=== PATIENT | female | born 1965 | race Caucasian/White ===

== ENCOUNTER 2021-10-07 07:21 | Outpatient (REF) | payer OTHER, SELFPAY ==
--- NOTE | ~2021-10-07 | MM_ITS ---
EXAMINATION: MM SCREENING DIGITAL BREAST TOMOSYNTHESIS, BILATERAL CLINICAL INFORMATION: Screening. Asymptomatic. The lifetime risk of breast cancer based on the Tyrer-Cuzick Model is 5%. COMPARISON: Mammography: 06/26/2018, 02/01/2017, 06/25/2014 TECHNIQUE: Digital breast tomosynthesis is performed in both the craniocaudal and mediolateral oblique views along with computer-aided detection (CAD). Synthesized 2D images are generated from the tomosynthesis. FINDINGS: There are scattered areas of fibroglandular density (ACR BI-RADS breast composition Category b). There are no significant masses, abnormal calcifications, or other abnormalities. Parenchymal pattern is similar to prior studies. There is no developing density or architectural abnormality. The axilla and skin contours are unremarkable. No significant changes. MM/MM tomosynthesis screening BI IMPRESSION: No mammographic evidence of malignancy. ASSESSMENT: BI-RADS 1: Negative RECOMMENDATION: Routine annual mammography screening. This patient's information was entered into a reminder system with a target due date for their next mammogram.
== END 2021-10-07 07:22 | disposition home or self-care (01) ==
LOC: HO.MAMMO 07:21
PROVIDERS: Visit Provider Internal Medicine
DX: Z12.31 Encounter for screening mammogram for malignant neoplasm of breast (principal)
CPT/HCPCS: 77063; 77067

== ENCOUNTER 2022-10-12 07:20 | Outpatient (REF) | payer OTHER, SELFPAY ==
--- NOTE | ~2022-10-12 | MM_ITS ---
EXAMINATION: MM SCREENING DIGITAL BREAST TOMOSYNTHESIS, BILATERAL CLINICAL INFORMATION: Screening. Asymptomatic. The lifetime risk of breast cancer based on the Tyrer-Cuzick Model is 2%. COMPARISON: Mammography: 10/07/2021, 06/26/2018, 02/01/2018 TECHNIQUE: Digital breast tomosynthesis is performed in both the craniocaudal and mediolateral oblique views along with computer-aided detection (CAD). Synthesized 2D images are generated from the tomosynthesis. FINDINGS: There are scattered areas of fibroglandular density (ACR BI-RADS breast composition Category b). There are no significant masses, abnormal calcifications, or other abnormalities. No architectural abnormality or developing density or significant change from prior studies. The axilla are unremarkable. MM/MM tomosynthesis screening BI IMPRESSION: No mammographic evidence of malignancy. ASSESSMENT: BI-RADS 1: Negative RECOMMENDATION: Routine annual mammography screening. This patient's information was entered into a reminder system with a target due date for their next mammogram.
== END 2022-10-12 07:21 | disposition home or self-care (01) ==
LOC: HO.MAMMO 07:20
PROVIDERS: PCP Internal Medicine; Visit Provider Internal Medicine
DX: Z12.31 Encounter for screening mammogram for malignant neoplasm of breast (principal)
CPT/HCPCS: 77063; 77067

== ENCOUNTER 2023-10-12 10:59 | Outpatient (REF) | payer OTHER, SELFPAY ==
[2023-10-12 14:47] LABS: Cholesterol 275 mg/dL (<200); HDL Cholesterol 82 mg/dL (>40); LDL Cholesterol Calculated 178 mg/dL (<100); Triglycerides 77 mg/dL (<150)
[2023-10-12 15:00] LABS: Estimated Average Glucose 105 mg/dL; Hemoglobin A1c % 5.3 % (<6.0)
[2023-10-12 15:05] LABS: TSH reflex Free T4 1.26 uIU/mL (0.32-4.0)
== END 2023-10-12 11:00 | disposition home or self-care (01) ==
LOC: HO.CHCLDS 10:59
PROVIDERS: Visit Provider Internal Medicine
DX: R00.2 Palpitations (principal); R73.9 Hyperglycemia, unspecified; I10 Essential (primary) hypertension
CPT/HCPCS: 36415; 80061; 83036; 84443

== ENCOUNTER 2023-10-19 07:07 | Outpatient (REF) | payer OTHER, SELFPAY | END 2023-10-19 07:08 | disposition home or self-care (01) | LOC: HO.MAMMO 07:07 | PROVIDERS: PCP Internal Medicine; Visit Provider Internal Medicine | DX: Z12.31 Encounter for screening mammogram for malignant neoplasm of breast (principal) | CPT/HCPCS: 77063; 77067 ==

== ENCOUNTER → 2023-10-19 07:30 | Outpatient (BNV) | payer OTHER, SELFPAY | PROVIDERS: PCP Internal Medicine; Visit Provider Radiology Diagnostic Radiology | DX: Z12.31 Encounter for screening mammogram for malignant neoplasm of breast (principal) | CPT/HCPCS: 77063; 77067 ==

== ENCOUNTER 2024-06-28 12:14 | Outpatient (REF) | payer OTHER, SELFPAY ==
--- NOTE | ~2024-06-28 | XR_ITS ---
EXAMINATION: XR CHEST CLINICAL INFORMATION: Cough x 2 weeks. COMPARISON: None available. TECHNIQUE: 2 views of the chest were obtained. FINDINGS: No significant abnormality is noted involving the heart, lungs, mediastinum, bony thorax or soft tissues. XR/XR chest 2V IMPRESSION: Unremarkable examination. Electronically signed by: Vick Johnson MD 06/30/2024 08:40 PM [facility]
== END 2024-06-28 12:15 | disposition home or self-care (01) ==
LOC: HO.XRAY 12:14
PROVIDERS: PCP Internal Medicine; Visit Provider Internal Medicine
DX: R05.1 Acute cough (principal)
CPT/HCPCS: 71046

== ENCOUNTER 2024-07-16 18:04 | Outpatient (REF) | payer OTHER, SELFPAY ==
[2024-07-17 09:39] LABS: Adenovirus PCR Not Detected (Not Detect.); Bordetella parapertussis PCR Not Detected (Not Detect.); Bordetella pertussis PCR Not Detected (Not Detect.); Chlamydia pneumoniae PCR Not Detected (Not Detect.); Coronavirus 229E PCR Not Detected (Not Detect.); Coronavirus HKU1 PCR Not Detected (Not Detect.); Coronavirus NL63 PCR Not Detected (Not Detect.); Coronavirus OC43 PCR Detected (Not Detect.); Human metapneumovirus PCR Not Detected (Not Detect.); Influenza A PCR Not Detected (Not Detect.); Influenza B PCR Not Detected (Not Detect.); Mycoplasma pneumoniae PCR Not Detected (Not Detect.); Parainfluenza 1 PCR Not Detected (Not Detect.); Parainfluenza 2 PCR Not Detected (Not Detect.); Parainfluenza 3 PCR Not Detected (Not Detect.); Parainfluenza 4 PCR Not Detected (Not Detect.); RSV PCR Not Detected (Not Detect.); Rhino/Enterovirus PCR Not Detected (Not Detect.)
[2024-07-17 09:48] LABS: SARS-CoV-2 PCR Not Detected (Not Detect.)
== END 2024-07-16 18:05 | disposition home or self-care (01) ==
LOC: HO.HHCLNP 18:04
PROVIDERS: Visit Provider Internal Medicine
DX: J01.40 Acute pansinusitis, unspecified (principal)
CPT/HCPCS: 87633

== ENCOUNTER 2024-07-25 12:25 | Outpatient (REF) | payer OTHER, SELFPAY ==
--- NOTE | ~2024-07-25 | XR_ITS ---
CLINICAL HISTORY: Nasal congestion w facial pain x 5 weeks getting worse. 4 view sinuses Comparison: None Findings: Bones are intact. Paranasal sinuses and mastoids are clear. No radiopaque foreign body. IMPRESSION: 1. No acute findings This document has been electronically signed by: Cliff Granado MD on 07/27/2024 08:28:58
== END 2024-07-25 12:26 | disposition home or self-care (01) ==
LOC: HO.XRAY 12:25
PROVIDERS: PCP Internal Medicine; Visit Provider Internal Medicine
DX: J01.40 Acute pansinusitis, unspecified (principal)
CPT/HCPCS: 70220

== ENCOUNTER → 2024-07-25 12:30 | Outpatient (BNV) | payer OTHER, SELFPAY | PROVIDERS: PCP Internal Medicine; Visit Provider Specialist | DX: G50.1 Atypical facial pain (principal); R09.81 Nasal congestion | CPT/HCPCS: 70220 ==

== ENCOUNTER 2024-10-15 10:02 | Outpatient (REF) | payer OTHER, SELFPAY ==
--- OUTSIDE RECORDS SUMMARY | 2024-10-15 11:42 | XMS_ITS | Clinical Summary ---
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 Name Role Phone Unavailable Primary Care Provider Unavailabl e Surgical History Surgery Date Site/Laterality Comments HYSTERECTOMY PROCEDURE: HISTORICAL HYSTERECTOMY Medical History Medical History Date Comments Pure hypercholesterolemia 12/21/2006 DX:Pur e hypercholesterolemia Unspecified asthma(493.90) 12/29/2006 DX:Un specified asthma(493.90) Family History Relation Name Status Comments Aunt [place] Father Alive CVA Mother Alive High cholestero l Sister Alive Uncle 1 [place] Uncle 2 [place] Uncle 3 [place] Social History Tobacco Use Types Packs/Day Years Used Date Smoking Tobacco: Former Alcohol Use Standard Drinks/Week Comments Yes 0 (1 standard drink = 0.6 oz pur e alcohol) Comments Unknown Sex and Gender Information Value Date Recorded Sex Assigned at Not on file Legal Sex Female 12:36 AM EST Gender Identity Not on file Sexual Orientation Not on file Obstetrics History Plan of Treatment Health Maintenance Due Date Last Done Comments Breast Cancer Screening 1965 DTaP,Tdap,and Td Vaccines (1 - Tdap) 1984 Hepatitis B Vaccines (1 of 3 - 19+ 3-dose series) 1984 Cervical Cancer Screening: P ap Smear 1986 Pneumococcal Vaccine: 50+ Years (1 of 1 - PCV) 2015 Zoster Vaccines (1 of 2) 2015 Colorectal Cancer Screening: Colonoscopy 06/13/2022 Depression Screening 06/13/2022 HIV Screening 06/13/2022 Hepatitis C Screening 06/13/2022 Social Influencers of Health Screening 06/13/2022 COVID-19 Vaccine (2023-2 5 season) 2024 Influenza Vaccine (Season Ended) 2025 05/31/2019, 04/21/2018 RSV Immunization Adult Patients (1 - 1-dose 75+ series) 2040 HIB Vaccines Aged Out No longer eligi ble based on patient's age to complete this topic HPV Vaccines Aged Out No longer eligi ble based on patient's age to complete this topic Hepatitis A Vaccines Aged Out No long er eligible based on patient's age to complete this topic IPV Vaccines Aged Out No longer eligi ble based on patient's age to complete this topic MMR Vaccines Aged Out No longer eligi ble based on patient's age to complete this topic Meningococcal ACWY Vaccine Aged Out N o longer eligible based on patient's age to complete this topic Meningococcal B Vacine Aged Out No lo nger eligible based on patient's age to complete this topic Pneumococcal Vaccine: Pediatrics (0 to 5 Years) and At-Risk Patients (6 to 64 Years) Aged Out No longer eligible b ased on patient's age to complete this topic RSV Immunization Patients Under 20 months Aged Out No longer eligible b ased on patient's age to complete this topic Varicella Vaccines Aged Out No longer eligible based on patient's age to complete this topic
--- OUTSIDE RECORDS SUMMARY | 2024-10-15 11:42 | XMS_ITS | Data Portability ---
Author Organization [place] - [facility], Allergy Address [address] [address] Care Team Providers Care Warehouse Picker Name Role Phone INDU ROPER Referring Provider Assessment Encounter Date Assessment Date Assessment LastModified by Organization Details LastModified Time 08/10/2024 08/10/2024 I reviewed her MRI showing clear sinuses. She did not try the gabapentin. She would like to know exactly what is causing her symptoms before taking medication. She is not convinced symptoms are related to a migraine variant. For the tinnitus, we did perform audiometric testing which shows a slightly asymmetric hearing loss. Given the asymmetry and the tinnitus, we can proceed with further investigation with MRI. I also recommended updated allergy testing. [email or web address] Not available 08/14/2024 08:32:15 Plan of Treatment Reminders Order Date Submit Date Provider Last Modified By Organization Details Last Modified Time Details Appointments None recorded. Lab None recorded. Referral None recorded. Procedures allergy testing, skin prick (PROC) 2024 025 [email or web address] Not available 14:35:30 intradermal allergy skin testing (PROC) 2024 025 [email or web address] Not available 14:35:30 pulmonary function test procedure (PROC) 2024 025 [email or web address] Not available 14:35:30 pulse oximetry (PROC) 2024 025 [email or web address] Not available 14:35:30 Surgeries None recorded. Imaging MRI, brain + internal auditory canal, w/wo contrast - MRI, BRAIN + INTERNAL AUDITORY CANAL, W/WO CONTRAST 2024 025 [facility] ([facility]), [address], [place], [address], 13:51:40 CT, sinuses, w/o contrast 2024 025 [place] [facility], [address] , [facility] [address], [address], 22:36:09 Medication Orders ofloxacin 0.3 % ear drops 2024 025 [id number], [address] [place], [address], 10:14:11 gabapentin 300 mg capsule 2024 025 [facility][id number], [address] [place], [address], 10:16:39 Patient TargetsNo targets recorded. Patient InstructionsNo instructions recorded. Reason for Referral None Reported. Results Created Date Observation Date Name Description Value Unit Range Abnormal Flag Note LastModifiedBy Organization Detail LastModifiedTime 08/04/1908/02/2024 CT, sinus es, w/o contr ast No observ ation record ed. [email or web address] [facility] [address], [address], 08/08/2024 12:48:39 08/04/1908/02/2024 CT, sinus es, w/o contr ast No observ ation record ed. [place] [facility] [address], [address], 08/08/2024 12:47:16 08/16/1908/15/2024 MRI, brain + brain stem, w/[facility] : [id number] Name: Elida Guzman Record Number : [id number] Date of : 1965 Date of Exam: 2024 Referr ing Physic paris: [facility] [address], [facility] [address] [place] [address] Exam: MR Brain (C-/C+ ) CPT 09704 Room Descri ption: Carolina Siem Verio 3.0T INDICA TION: Left ear tinnit us TECHNI QUE: Multip lanar multis equenc e MRI of the brain using an IAC protoc ol was perfor med before and after the admini strati on of 10 mL of Dotare m. COMPAR GINI: No prior FINDIN GS: The bilate ral internal grinder tender al audito ry canals are normal in size. The bilate ral crania l nerves VII and VIII comple xes are symmet gail. There is normal T2 signal in the bilate ral cochle a and semici rcular canals . The cister nal segmen ts of the bilate ral trigem inal nerves are normal . Bilate ral Meckel caves are normal . The cerebe llopon michele angle cister ns are patent . There is no eviden ce of mass or abnorm al enhanc ement in the bilate ral internal grinder tender al audito ry canals . The visual ized brain is unrema rkable . The visual ized ventri cles and sulci normal . The midlin e the struct ures, main vascul ar flow voids, and basal cister ns are normal . There is fluid in inferi or left mastoi d air cells. IMPRES CIERRA: Unrema rkable bilate ral internal grinder tender al audito ry canals . Small left mastoi d effusi on. Electr onical ly Signed By: Nicolasa Phan MD [facility] ([facility]) [address], [place], [address], 08/20/2024 12:58:05 08/20/19 25 audio gram No observ ation record ed. BARCODE Not Available 2024 15:37:28 Result Notes None recorded. Problems Name Problem SNOMED Code Status Onset Date Resolution Date Notes Provider Name and Address Organization Details Recorded Time Atypical facial pain 27580171 Active 2024 CESAR MISHRA MD [address], [place], [address], [facility] - [facility] [place] 5 14:05:05 Sensorineur al hearing loss of bilateral ears 422888239 Active 2024 CR FLORESETHEL SEVILLA [address], [place], [address], [place] - [facility] [place] 5 10:49:21 Tinnitus of left ear 6795985994310 Active 2024 CESAR MISHRA MD 100 [facility],[address], [place], [address], [place] - [facility] [place] 5 11:16:45 Chronic rhinitis 07161009 Active 2024 CESAR MISHRA MD 100 [facility],[address], [place], [address], [facility] - [facility] [place] 5 11:17:09 Non-allergi c rhinitis 909080200318 Active 2024 CESAR MISHRA MD 100 [facility],[address], [place], [address], [facility] - [facility] [place] 5 11:17:20 Allergic rhinitis 53790043 Active 2024 CESAR MISHRA MD 100 [facility],[address], [place], [address], [facility] - [facility] [place] 11:17:20 Seasonal allergic rhinitis 565813468 Active 2024 CESAR MISHRA MD 100 [facility],[address], [place], [address], [place] - [facility] [place] 5 11:17:20 Disorder of left Eustachian tube 2995816262859 109 Active 2024 CESAR MISHRA MD [address] [facility],[address], [place], [address], [place] [facility] [place] 16:05:15 Problem Notes None recorded. Procedures Surgical History Date Name Laterality Status Provider Name and Address Organization Details Recorded Time 08/30/19 25 Myringotomy with Aspiration left completed CESAR MISHRA MD [address], [address], [facility] - [facility] 09/02/2024 17:24:11 08/10/19 25 Comp Audio with Tymps (19416 & 44529) completed ETHEL MURRAY 100 [facility],[address], [address], [facility] - [facility] 08/10/2024 10:48:45 07/27/19 25 JMSNasal/Sinus Endoscopy completed CESAR MISHRA MD [address] [place] [address], [address], [facility] - [facility] 07/27/2024 14:04:54 hysterectomy completed CESAR MISHRA MD [address] [place] [address], [address], [facility] - [facility] 07/27/2024 13:31:56 Imaging Results Imaging Date Name Status LastModified by Organiz ation Details LastModified Time 08/02/2024 CT, sinuses, w/o contrast completed [facility] [address], [address], 08/08/2024 12:48:39 08/02/2024 CT, sinuses, w/o contrast completed [place] [facility] [address], [address], 08/08/2024 12:47:16 08/15/2024 MRI, brain + brain stem, w/wo contrast completed [facility] ([facility]) [address] [place], [address], 08/20/2024 12:58:05 08/20/2024 audiogram completed [facility] Information no t available 08/20/2024 15:37:28 Procedure Notes None recorded. Medical Equipment None Reported. Allergies Allergen ID Allergen Name Allergen Category Reaction Reaction Severity Criticality Documentation Date Start Date Code Code System Note Provider Name and Address Organization Details Recorded Time 475436 azithromy segun medicatio n Not available Not available Not available 07/27/2024 97049 RxNorm Jenny Potvin null, [place] - [facility] [place] 13:23:14 275637 amitripty line medicatio n Not available Not available Not available 07/27/2024 704 RxNorm Jenny Potvin null, [place] - [facility] [place] 5 13:23:23 029439 clindamyc in Not available Not available Not available Not available 07/27/2024 2582 RxNorm Jenny Potvin null, [place] - [facility] [place] 13:23:39 966059 prednison e medicatio n Not available Not available Not available 07/27/2024 8640 RxNorm Jenny Potvin null, [place] [facility] [place] 5 13:23:49 561545 rofecoxib medicatio n Not available Not available Not available 07/27/2024 84210 8 RxNorm Jenny Potvin null, [place] [facility] [place] 5 13:24:01 090705 Medicinal product containin g macrolide and acting as antibacte rial agent (product) medicatio n Not available Not available Not available 07/27/2024 33742 8007 SNOMED Jenny Potvin null, [place] - [facility] [place] 5 13:24:13 937659 erythromy segun medicatio n Not available Not available Not available 07/27/2024 4053 RxNorm Jenny Potvin null, [place] - [facility] [place] 5 13:24:35 713074 nortripty line medicatio n Not available Not available Not available 07/27/2024 7531 RxNorm Jenny Potvin null, [place] - [facility] [place] 5 13:24:44 340820 hydralazi ne medicatio n Not available Not available Not available 07/27/2024 5470 RxNorm Jenny Potvin null, [place] - [facility] [place] 5 13:24:53 099391 hydrochlo rothiazid e medicatio n Not available Not available Not available 07/27/2024 5487 RxNorm Jenny watkins [place] - [facility] 5 13:25:10 121004 fluconazo le medicatio n Not available Not available Not available 07/27/2024 4450 RxNorm Jenny watkins [place] - [facility] 5 13:25:22 Medications Name Sig Start Date Stop Date Status Note LastModified by Organization Details LastModified Time cetirizine 10 mg tablet TAKE ONE TABLET DAILY active Not Available Not Available No t Available acetaminoph en 120 mg-codeine 12 mg/5 mL oral solution TAKE 15 ML BY MOUTH EVERY 4 HOURS NEEDED FOR SEVERE PAIN FOR UP TO 5 DAYS 07/27 completed Not Available Not Available Not Available ciprofloxac in 500 mg tablet TAKE ONE TABLET TWICE DAILY FOR 7 DAYS 07/27 completed Not Available Not Available Not Available sulfamethox azole 800 mg-trimetho prim 160 mg tablet TAKE 1 TABLET BY MOUTH TWICE DAILY 07/27 completed Not Available Not Available Not Available amoxicillin 500 mg tablet TAKE 2 TABLETS BY MOUTH NOW THEN TAKE 1 TABLET EVERY 8 HOURS UNTIL ALL TAKEN 07/27 completed Not Available Not Available Not Available ofloxacin 0.3 % ear drops INSTILL 5 DROPS TWICE A DAY BY OTIC ROUTE FOR 3 DAYS. 09/28 completed Not Available Not Available Not Available Banophen 25 mg tablet TAKE ONE TABLET EVERY NIGHT AT BEDTIME NEEDED FOR ITCHING 07/27 completed Not Available Not Available Not Available dexamethaso ne 4 mg tablet TAKE ONE TABLET ONCE DAILY FOR 3 DAYS 07/27 completed Not Available Not Available Not Available gabapentin 300 mg capsule TAKE 1 CAPSULE BY MOUTH EVERY DAY FOR 30 DAYS 08/10 completed Not Available Not Available Not Available azelastine 137 mcg (0.1 %) nasal spray USE ONE SPRAY IN EACH NOSTRIL TWICE DAILY 07/27 completed Not Available Not Available Not Available albuterol sulfate HFA 90 mcg/actuati on aerosol inhaler INHALE TWO PUFFS EVERY 4 HOURS NEEDED FOR WHEEZING active Not Available Not Available No t Available fluticasone propionate 50 mcg/actuati on nasal spray,suspe nsion INHALE 1 SPRAY IN EACH NOSTRIL ONCE DAILY active Not Available Not Available No t Available amoxicillin 875 mg-potassiu m clavulanate 125 mg tablet TAKE 1 TABLET BY MOUTH EVERY 12 HOURS 07/27 completed Not Available Not Available Not Available amoxicillin 500 mg-potassiu m clavulanate 125 mg tablet TAKE 1 TABLET 3 TIMES A DAY FOR 7 DAYS TILL FINISHED 07/27 completed Not Available Not Available Not Available tobramycin 0.3 %-dexametha sone 0.1 % eye drops,suspe nsion APPLY 3 DROPS TO LEFT EAR TWICE A DAY FOR 5 DAYS 09/28 completed Not Available Not Available Not Available nitrofurant oin monohydrate /macrocryst als 100 mg capsule TAKE 1 CAPSULE BY MOUTH EVERY 12 HOURS FOR 5 DAYS 07/27 completed Not Available Not Available Not Available hydrochloro thiazide 12.5 mg tablet TAKE ONE TABLET EVERY MORNING 07/27 completed Not Available Not Available Not Available Asmanex HFA 100 mcg/actuati on aerosol inhaler INHALE ONE PUFF TWICE DAILY, RINSE MOUTH AFTER USE 07/27 completed Not Available Not Available Not Available Vitals Date Recorded Body height Body mass index (BMI) Body weight Provider Name and Address Organization Details Last Updated DateTime 09/28/2024 154.94 cm 26.6 kg/m2 13899.52 g Jenny Carter [place] - [facility] 09/28/2024 10:14:01 Date Recorded Body height Body mass index (BMI) Body weight Provider Name and Address Organization Details Last Updated DateTime 07/27/2024 154.94 cm 26.5 kg/m2 55557.93 g Jenny Carter [place] - [facility] 07/27/2024 13:20:28 Date Recorded Body height Body mass index (BMI) Body weight Provider Name and Address Organization Details Last Updated DateTime 08/10/2024 154.94 cm 26.3 kg/m2 48866.34 g Jenny Carter [place] - [facility] 08/10/2024 10:16:23 Date Recorded Body height Body mass index (BMI) Body weight Provider Name and Address Organization Details Last Updated DateTime 08/30/2024 154.94 cm 26.6 kg/m2 58746.52 g Jenny Carter [place] - [facility] [place] [facility] 08/30/2024 15:50:20 Social History Question Answer Notes LastModified by Organizat ion Details LastModified Time Tobacco Smoking Status Former Smoker CESAR MISHRA MD [address] [place] [address], [address], [place] - [facility] [place] 07/27/2024 13:31:44 When Did You Quit Smoking? 16+yearssinc elastcigaret te [email or web address] Information not available 07/27/2024 Sex: Unknown Functional Status None recorded. Mental Status None recorded. Family History Nothing Reported Notes:Vertigo Mother - Onset Age: 56, of Age: 70 Hearing loss Mother - Onset Age: 5, of Age: 70 Medical History Condition Response Headaches Y Asthma Y Gynecological HistoryNo gynecological history recorded. Obstetrics History GPAL:G 0 P 0 0 0 0 Past Encounters Encounter ID Performer Location Encounter Start Date Encounter Closed Date Diagnosis/Indication Diagnosis SNOMED-CT Code Diagnosis ICD10 Code Diagnosis Note [id number] CESAR MISHRA MD [facility] [address] [address] 07/27/2024 13:16:55 07/27/2024 14:09:51 Atypical facial pain 66989202 G50.1 No evidence of bacterial infection on exam today. Had sinus XR which was normal. I discussed that a CT is a more definitive test. She was not able to have test in the office today, so we have scheduled it in the near future. She has been seen in the past for similar symptoms with normal imaging, we discussed allergies and migraines in the differenti al. She is quite uncomforta ble but has multiple medication limitation s, but agrees to try gabapentin again. [id number] CESAR MISHRA MD [facility] [address] [address] 08/10/2024 10:10:09 08/10/2024 13:04:08 Sensorineural hearing loss of bilateral ears 545122601 H90.3 Audiologic al evaluation results: Right ear: {{Normal N ormal through 2 kHz Mild M oderate Mo derately-s evere Sayra re Profoun d Essentia lly normal hearing#}} {{hearing sloping to a mild slopi ng to a moderate s loping to moderately severe slo ping to severe slo ping to profound f lat high frequency low frequency mid frequency cookie bite samuel curve with the exception of a moderately -severe SNHL at 8000Hz#}} {{with* se nsorineura l hearing loss with condu ctive hearing loss with mixed hearing loss with}} {{excellen t* good fa ir poor no measurable }} word recognitio n. Left ear: {{Normal N ormal through 2 kHz Mild M oderate Mo derately-s evere Sayra re Profoun d Essentia lly normal#}} {{hearing sloping to a mild slopi ng to a moderate s loping to moderately severe* sl oping to severe slo ping to profound f lat high frequency low frequency mid frequency cookie bite samuel curve}} {{with sen sorineural hearing loss with* cond uctive hearing loss with mixed hearing loss with}} {{excellen t* good fa ir poor no measurable }} word recognitio n. Tympanomet ry: Right Ear:{{Type A Type As Type Ad* Type C Type C, shallow & rounded Ty pe B Type B with large volume Cou ld not maintain a hermetic seal}} Left Ear:{{Type A* Type As Type Ad Type C Type C, shallow & rounded Ty pe B Type B with large volume Cou ld not maintain a hermetic seal}} Tinnitus of left ear 924 9892982 106 H93.12 Chronic rhinitis 0440341 6 J31.0 [id number] CESAR MISHRA MD [facility] [address] [address] 08/30/2024 15:44:37 08/30/2024 16:11:56 Disorder of left Eustachian tube 5725540303 043851 H69.92 59-year-ol d female with left-sided head pressure and sinus congestion which has not been explained with sinus infection. Her MRI did not show any concerning lesion but did show evidence of partial mastoid effusion which could be a contributi ng factor to her symptoms. She is motivated to proceed with myringotom y. I counseled her that I did not know if this would help with her symptoms, but if it does, we can proceed with tube placement. [id number] CESAR MISHRA MD [facility] 100 [place] [address] 09/28/2024 09:50:16 09/28/2024 10:28:10 Disorder of left Eustachian tube 7786470848 706852 H69.92 Symptoms are markedly improved after myringotom y and drops with steroids. She feels about 80% better. There is a small crust over the myringotom y site. Given improvemen t, will defer tube placement. We discussed we could proceed with tube placement and longer-ter m dose of steroid drops if symptoms worsen. Health Concerns Section Related Observation LastModified by Organization Detai ls LastModified Time None Recorded Concern Status LastModified by Organization Details LastModified Time None Recorded Advance Directives Directive None Recorded Payers Encounter Date Sequence Insurance Name Policy Number Policy Ross Covered Member ID Ross Member ID Guarantor Name 07/27/2024 1 [facility] [id number] Kenna Guzman [id number] Kenna Guzman 08/10/2024 1 [facility] [id number] Kenna Guzman [id number] 1 Kenna Guzman 08/30/2024 1 [facility] [id number] Kenna Guzman [id number] 1 Kenna Guzman 09/28/2024 1 [facility] [id number] Kenna Guzman [id number] 1 Kenna Guzman Notes Date Note Type Note Provider Name and Address Organization Details Recorded Time 5 text/html 59 yo F with acute sinus symptoms. started itching in the earheadachestinnitus on the left Had XR at [place] which looked normal left extending to ear cough betterno meds now a couple abx but did not help augmentin and then a second with steroidoriginally infected tooth, now a new root canal mandibular usually 3-4 sinus infections per year here 10 years ago (Kenna Nielsen chart [id number]) CT negativeBeer and mold positive for allergy testing , has been on flonase prednisone allergynortriptyline allergygabapentin did not seem to help in past has been on sudafed and mucinex CESAR MISHRA MD [address] [place] [address],[address], [address], [facility] - [facility] 08/08/2024 12:44:27 5 text/html No improvement in symptoms. She is very distressed by her symptoms. PV: 59 yo F with acute sinus symptoms. started itching in the earheadachestinnitus on the left Had XR at [place] which looked normal left extending to ear cough betterno meds now a couple abx but did not help augmentin and then a second with steroidoriginally infected tooth, now a new root canal mandibular usually 3-4 sinus infections per year here 10 years ago (Kenna Nielsen chart [id number]) CT negativeBeer and mold positive for allergy testing , has been on flonase prednisone allergynortriptyline allergygabapentin did not seem to help in past has been on sudafed and mucinex CESAR MISHRA MD 100 [facility],[address], [address], [facility] - [facility] 08/14/2024 08:32:26 5 text/html 59-year-old female presents today for follow-up. Her MRI did not show any concerning findings, but did show some fluid in a few of the left sided air cells. CESAR MISHRA MD [address] [facility] [address], [place], [address], [facility] - [facility] 09/02/2024 17:25:28 5 text/html Dizziness is gone, pressure 80% better.Second drops made a difference in the ear almost immediately. CESAR MISHRA MD [address] [facility],[address], [address], [facility] - [facility] 09/28/2024 10:29:29 OBGyn Episode No OBEpisode recorded.
--- OUTSIDE RECORDS SUMMARY | 2024-10-15 11:43 | XMS_ITS | Encounter Summary ---
Author Organization [employer] Address [address] [place] [address] Care Team Providers Care Ell Tutor Name Role Phone Fela Grajeda MD Primary Care Provider [phone] Reason for Visit * Reason Comments Med Refill Encounter Details Date Type Department Care Team ([facility] Contact Info) Description 01/09/2024 Refill [facility] [address] [place] [address] Fela Grajeda MD [address] [place] [address] Seasonal allergies Social History Tobacco Use Types Packs/Day Years Used Date Smoking Tobacco: Former Cigarettes Smokeless Tobacco: Never Alcohol Use Standard Drinks/Week Comments Yes 0 (1 standard drink = 0.6 oz pur e alcohol) Alcohol Answer Date Recorded Frequency of Alcohol Consumption Not on file 10/07/2022 How many drinks containing a lcohol do you have on a typical day when you are drinking? 1 10/07/2022 How often do you have six or more drinks on one occasion? 1 10/07/2022 Depression Answer Date Recorded Patient Health Questionnaire-9 Score 3 10/12/2023 Patient Health Questionnaire-9 Score 3 10/12/2023 Last PHQ-9: Questionnaire Data Not on file 0 10/12/2023 Housing Stability Answer Date Recorded What is your housing situation today? I have barbara melendez 05/01/[address] you li ve. Do you have problems with any of the following? None of the above 05/01/2023 Food Insecurity Answer Date Recorded Within the past 12 months, y ou worried that your food would run out before you got money to buy more: Never True 05/01/2023 Within the past 12 months,th e food you bought just didn't last and you didn't have enough money to get more: Never True Transportation Answer Date Recorded In the past 12 months, has l ack of transportation kept you from medical appts, meetings, work or from getting things needed for daily living? No 05/01/2023 Utilities Answer Date Recorded In the past 12 months, has t he electric, gas, oil or water company threatened to shut off services in your home? No 05/01/2023 Depression Answer Date Recorded Patient Health Questionnaire-2 Score 0 10/12/2023 Comments Unknown Sex and Gender Information Value Date Recorded Sex Assigned at Female 05/10/2022 10:21 AM EDT Legal Sex Female 10:21 AM EDT Gender Identity Female 05/10/2022 10:21 AM EDT Sexual Orientation Straight 05/10/2022 10 :21 AM EDT documented as of this encounter Plan of Treatment Not on file documented as of this encounter Visit Diagnoses Diagnosis Seasonal allergies Allergic rhinitis, cause unspecified documented in this encounter Additional Health Concerns Assessment Noted Time PHQ-9 Depression Total Score: 3 10/12/19 24 9:48 AM EDT documented as of this encounter Care Teams Ell Tutor Relationship Specialty Start Date End Date Fela Grajeda MD [address] [place] [address] PCP - General Internal Medicine 07/11/18 documented as of this encounter
--- OUTSIDE RECORDS SUMMARY | 2024-10-15 11:43 | XMS_ITS | Encounter Summary ---
Author Organization [employer] Address [address] [facility] [address] [place] [address] Care Team Providers Care Benzene Washer Name Role Phone Fela Grajeda MD Primary Care Provider [phone] Encounter Details Date Type Department Care Team (Latest Contact Info) Description 10/15/2024 Travel Social History Tobacco Use Types Packs/Day Years Used Date Smoking Tobacco: Former Cigarettes Smokeless Tobacco: Never Alcohol Use Standard Drinks/Week Comments Yes 0 (1 standard drink = 0.6 oz pur e alcohol) Alcohol Answer Date Recorded Q1: How often do you have a drink containing alc ohol? 3 10/15/2024 Q2: How many drinks containi ng alcohol do you have on a typical day when you are drinking? 4 10/15/2024 Q3: How often do you have six or more drinks on one occasion? 4 10/15/2024 Depression Answer Date Recorded Patient Health Questionnaire-9 Score 7 10/15/2024 Patient Health Questionnaire-9 Score 7 10/15/2024 Last PHQ-9: Questionnaire Data Not on file 0 10/15/2024 Housing Stability Answer Date Recorded What is your housing situation today? I have barbara melendez 10/15/[address] you li ve. Do you have problems with any of the following? Mold 10/15/2024 Food Insecurity Answer Date Recorded Within the past 12 months, y ou worried that your food would run out before you got money to buy more: Never True 10/15/2024 Within the past 12 months,th e food you bought just didn't last and you didn't have enough money to get more: Never True 01/2025 Transportation Answer Date Recorded In the past 12 months, has l ack of transportation kept you from medical appts, meetings, work or from getting things needed for daily living? No 10/15/2024 Utilities Answer Date Recorded In the past 12 months, has t he electric, gas, oil or water company threatened to shut off services in your home? No 10/15/2024 Depression Answer Date Recorded Patient Health Questionnaire-2 Score 0 10/15/2024 Internet Access Answer Date Recorded Internet Access Q1 Yes 10/15/2024 Internet Access Q2 Not on file 10/15/2024 Comments Unknown Sex and Gender Information Value Date Recorded Sex Assigned at Female 05/10/2022 10:21 AM EDT Legal Sex Female 10:21 AM EDT Gender Identity Female 05/10/2022 10:21 AM EDT Sexual Orientation Straight 05/10/2022 10 :21 AM EDT documented as of this encounter Plan of Treatment Not on file documented as of this encounter Visit Diagnoses Not on filedocumented in this encounter Additional Health Concerns Assessment Noted Time PHQ-9 Depression Total Score: 7 10/16/19 25 9:53 AM EDT documented as of this encounter Care Teams Benzene Washer Relationship Specialty Start Date End Date Fela Grajeda MD [address] [place] [id number] PCP - General Internal Medicine 07/11/18 documented as of this encounter
--- OUTSIDE RECORDS SUMMARY | 2024-10-15 11:43 | XMS_ITS | Clinical Summary ---
Author Organization [facility] Address [address] [place] [address] Care Team Providers Care Machine Tool Builder Name Role Phone Unknown, Primary Care Provider Unavailabl e Allergies No known active allergies Medications Medication Sig Dispensed Refills Start Date End Date Status albuterol 108 (90 Base) MCG/ACT inhaler INHALE TWO PUFFS EVERY 4 TO 6 HOURS NEEDED 0 03/19/2021 Active HYDROcodone-acetam inophen (NORCO) 5-325 MG per tablet Take 1 tablet by mouth every 6 (six) hours as needed for pain. 25 tablet 0 09/03/2021 Active ibuprofen 600 MG tablet Take 1 tablet (600 mg total) by mouth 3 (three) times a day. 60 tablet 1 09/03/2021 Active methocarbamol (Robaxin-750) 750 MG tablet Take 1 tablet (750 mg total) by mouth 3 (three) times a day as needed (spasm). 40 tablet 1 09/03/2021 Active predniSONE (DELTASONE) 5 mg tablet Take 4 tablets (20 mg total) by mouth 2 (two) times a day. 60 tablet 1 09/14/2021 Active sulfamethoxazole-t rimethoprim (BACTRIM DS) 800-160 MG per tablet Take 1 tablet (160 mg of trimethoprim total) by mouth 2 (two) times a day. 28 tablet 1 09/07/2023 Active Active Problems Problem Noted Date Diagnosed Date Acute pain of right knee 09/03/2021 Knee effusion, right 09/03/2021 Acute medial meniscus tear of right knee 022 Acute pain of left wrist 03/23/2021 De Quervain's tenosynovitis, left 03/23/2021 Resolved Problems Problem Noted Date Diagnosed Date Resolved Date Occult closed fracture of sc aphoid of left wrist 03/23/2021 03/23/2021 Social History Tobacco Use Types Packs/Day Years Used Date Smoking Tobacco: Never Smokeless Tobacco: Never Alcohol Use Standard Drinks/Week Comments Yes 0 (1 standard drink = 0.6 oz pur e alcohol) Sex and Gender Information Value Date Recorded Sex Assigned at Not on file Gender Identity Not on file Sexual Orientation Not on file Job Start Date Occupation Industry Not on file Not on file Not on file Last Filed Vital Signs Vital Sign Reading Time Taken Comments Blood Pressure - - Pulse - - Temperature 36.4 ??C (97.5 ??F) 09/03/2021 2:58 PM ES T Respiratory Rate - - Oxygen Saturation - - Inhaled Oxygen Concentration - - Weight 70.8 kg (156 lb) 09/03/2021 2:58 PM EST Height 154.9 cm (5' 1 ) 09/03/2021 2:58 PM EST Body Mass Index 29.48 09/03/2021 2:58 PM EST Plan of Treatment Health Maintenance Due Date Last Done Comments Hepatitis B Vaccines (1 of 3 - 3-dose series) 1965 Hepatitis C Screening 1965 COVID-19 Vaccine (#1) 01/20/1966 Depression Screening 1977 BMI Counseling 1983 Preventative Health Evaluation 1983 DTap / Tdap / Td (1 - Tdap) 1984 Cervical Cancer Screening (P ap Smear) 1986 Colon Cancer Screening (Colonoscopy) 2010 Breast Cancer Screening (Mammogram) 2015 Shingrix-Zoster Vaccine (1 of 2) 2015 Influenza Vaccine (#1) 2024 Pneumococcal Vaccine Aged Out No long er eligible based on patient's age to complete this topic RSV Ped < 20 months Aged Out No longe r eligible based on patient's age to complete this topic Care Teams Machine Tool Builder Relationship Specialty Start Date End Date Unknown, PCP - General 09/09/21
--- OUTSIDE RECORDS SUMMARY | 2024-10-15 11:43 | XMS_ITS | Clinical Summary ---
Author Organization [employer] Address [address] [place] [address] 7 [place] [address] Care Team Providers Care Regulatory Compliance Officer Name Role Phone Fela Grajeda MD Primary Care Provider [phone] Allergies Active Allergy Reactions Criticality Noted Date Comments Amitriptyline Palpitations Low 01/17/2012 Azithromycin Rash Low Clindamycin Hives 07/07/2022 Erythromycin Hives 07/07/2022 Fluconazole Shortness of breath High 04/27/2016 Hydralazine Swelling 11/14/2023 Hydrochlorothiazide Hives 11/24/2023 Macrolides And Ketolides Hives 07/07/2022 Nortriptyline Palpitations Low 07/07/2022 Prednisone Anxiety Low 07/31/2013 Rofecoxib Rash Low 07/07/2022 Medications Dextromethorphan- guaiFENesin (Mucinex DM) 30-600 MG tablet sustained-release 12 hour 1 tab po q4hrs 28 tablet 4 Active diphenhydrAMINE (BENADryl) 25 MG tablet Take 1 tablet (25 mg) by mouth if needed at bedtime for itching. 10 tablet 4 Active cetirizine (ZyrTEC) 10 MG tabletIndications :Seasonal allergies Take 1 tablet (10 mg) by mouth Once per day. 30 tablet 11 4 Active Mometasone Furoate (Asmanex HFA) 100 MCG/ACT aerosolIndication s:Seasonal allergies Inhale 100 mcg Once per day. 13 g 11 4 Active albuterol 108 (90 Base) MCG/ACT inhalerIndication s:Seasonal allergies INHALE TWO PUFFS BY MOUTH EVERY 4 HOURS NEEDED FOR WHEEZING 8.5 g 1 4 Active albuterol 108 (90 Base) MCG/ACT inhalerIndication s:Congestion of nasal sinus,Acute cough Inhale 2 puffs every 4 (four) hours if needed for wheezing. 18 g 4 06/28/20 25 Active fluticasone (Flonase) 50 MCG/ACT nasal spray Administer 1 spray into each nostril Once per day. 16 g 2 5 Active dexAMETHasone (Decadron) 4 MG tablet Take 1 tablet (4 mg) by mouth Once per day for 3 days. 3 tablet 5 Active azelastine (Astelin) 0.1 % nasal sprayIndications: Subacute pansinusitis Administer 1 spray into each nostril 2 times daily. Use in each nostril as directed 30 mL 12 5 07/25/19 26 Active metoprolol succinate XL (Toprol XL) 25 MG 24 hr tabletIndications :Primary hypertension Take 1 tablet (25 mg) by mouth Once per day. Do not crush or chew. 30 tablet 11 5 10/16/19 26 Active Hospital, Clinic, or Other Facility Administered Medication Ordered Dose Route Frequency Start Date End Date Status ondansetron (Zofran) tablet 8 mgIndications:Flu-lik e symptoms 8 mg PO 2 times daily PRN 07/07/2022 Active Active Problems Problem Noted Date Diagnosed Date Hypercholesterolemia 10/15/2024 Subacute pansinusitis 07/16/2024 Assessment & Plan (07/16/2024 11:50 AM EST): Rx Cipro x 7d + Dexamethasone for at least 3d, warned re GI intolerance and ?anxiety (she had it on PRD). Patient previously tolerated dexa back on 11/2023. Advised to take meds after meals and can take TUMS prn abdominal pain. She will hold dexamethasone if abd pain is not improved with TUMS. Rest (sleep at least 8 hours a night). She'll be out of work today (she works from home) Hydrate with plenty of water (avoid caffeine and alcohol). Use saline nose drops to loosen mucus or vapor showers. Take Acetaminophen (Tylenol??)/Ibuprofen as needed to reduce fever, headache, body aches or discomfort Gargle with salt water and use throat sprays/lozenges for throat pain. [facility] sent out respiratory panel Hives 11/14/2023 Assessment & Plan (11/14/2023 2:36 PM EDT): Advised to continue Benadryl and administer at night. Begin Zyrtec in the morning. Prescribing low dose of Decadron to take if she feels comfortable to aid in relieving allergic reactions. Advised to temporarily discontinue BP medication as a precaution while eliminating allergy. Relevant Medication Cetirizine ( Zyrtec) 10 MG Tablet Dexamethasone ( Decadron) 4 MG Tablet Diphenhydramine (Benadryl) 25 MG Tablet Acute medial meniscus tear of right knee 022 De Quervain's tenosynovitis, left 03/23/2021 Allergic rhinitis 11/24/2011 Insomnia 11/24/2011 Encounters Date Type Department Care Team Description 10/15/2024 9:30 AM EDT Office Visit [facility] [address] [place], [place] [phone] Fela Grajeda MD Annual physical exam (Primary Dx); Subacute pansinusitis; Primary hypertension; Palpitations; Hypercholesterolemia 10/15/2024 Travel 07/25/2024 11:15 AM EST Office Visit [facility] [address] [place], [place] [phone] Fela Grajeda MD Subacute pansinusitis (Primary Dx) 07/25/2024 Telephone [facility] [address] [place] [address] Fela Grajeda MD 07/25/2024 Travel 07/24/2024 Telephone [facility] [address] [place] [address] Fela Grajeda MD Nurse Triage from Last 3 Months Immunizations Name Administration Dates Next Due Influenza injectable quadriv alent IIV4 with preservative 05/31/2019 Influenza injectable quadriv alent preservative free 07/13/2021,04/21/2018,05/06/2017 Influenza, IIV3, injectable 05/22/2014 Influenza, Split (incl. dat fied surface antigen) 04/09/2013 Pfizer Covid-19 Vaccine 12+ 05/27/2021,,10/10/2020 Tdap 01/17/2012 Zoster, Recombinant 09/15/2021,07/13/2021 Family History Medical History Relation Name Comments Hypertension Father Stroke Father Lung cancer Maternal Grandmother Diabetes Mother Heart failure Mother Ovarian cancer Sister Relation Name Status Comments Father Maternal Grandmother Mother Sister Social History Tobacco Use Types Packs/Day Years Used Date Smoking Tobacco: Former Cigarettes Smokeless Tobacco: Never Tobacco Cessation:Counseling Given: Not Answered Alcohol Use Standard Drinks/Week Comments Yes 0 [...] is your housing situation today? I have barbarasanjay melendez 10/15/[address] you [...] Orientation Straight 05/10/2022 10 :21 AM EDT Last Filed Vital Signs Vital Sign Reading Time Taken Comments Blood Pressure 142/92 10/15/2024 9:14 AM EDT Pulse 79 10/15/2024 9:14 AM EDT Temperature 36.6 ??C (97.9 ??F) 10/15/2024 9:14 AM ED T Respiratory Rate 20 10/15/2024 9:14 AM EDT Oxygen Saturation 94% 10/15/2024 9:14 AM EDT Inhaled Oxygen Concentration - - Weight 68 kg (150 lb) 10/15/2024 9:14 AM EDT Height 154.9 cm (5' 1 ) 10/15/2024 9:14 AM EDT Body Mass Index 28.34 10/15/2024 9:14 AM EDT Plan of Treatment Health Maintenance Due Date Last Done Comments CT Colonography 1965 FIT DNA/Cologuard 1965 FIT 1965 FOBT 1965 HIV Screening 1965 Sigmoidoscopy 1965 Hepatitis B Vaccines (1 of 3 - 19+ 3-dose series) 1984 Pap Smear 1986 Cervical Cancer Screening 1995 HPV/Cotest 1995 Pneumococcal Vaccine: 50+ Years (1 of 1 - PCV) 2015 DTaP/Tdap/Td Vaccines (2 - Td or Tdap) 01/16/2022 01/17/2012 Influenza Vaccine (#1) 2024 , 05/31/2019, 04/21/2018, Additional history exists Alcohol/Substance Use Screening 10/15/2025 10/15/2024 COVID-19 Vaccine ( season) 2025 05/27/2021, 11/02/2020, 10/10/2020 Postponed from 03/11/2024 (Patient Refused) Depression Screening 10/15/2025 10/15/2024, 10/16/19 SDOH Screening 10/15/2025 10/15/2024 Tobacco Screening 10/15/2025 10/15/2024 Mammogram 10/18/2025 10/19/2023, 0410/2022, 10/07/2021, Additional history exists Colonoscopy 10/03/2028 Colorectal Cancer Screening 10/03/2028 Lipid Panel 10/11/2028 10/12/2023, 09/10, 07/13/2021 RSV Patients and Patients Aged 60 years or older (1 - 1-dose 75+ series) 2040 Hepatitis C Screening Completed 07/13/2021 Zoster Vaccines Completed 09/15/2021, 07/13/2021 HIB Vaccines Aged Out No longer eligi [...] patient's age to complete this topic Meningococcal Vaccine Aged Out No srinivasa clotidle eligible based on patient's age to complete this topic RSV under 20 months Aged Out No longe r eligible based on patient's age to complete this topic Rotavirus Vaccines Aged Out No longer eligible based on patient's age to complete this topic Procedures Procedure Name Priority Date/Time Associated Diagnosis Comments XR SINUS 3 VIEWS Routine 07/27/2024 8:28 AM EST Subacute pansinusitis BI MAMMOGRAM SCREENING TOMOSYNTHESIS BILATERAL Routine 10/19/2023 7:38 AM EDT LIPID PANEL, STANDARD Routine 10/12/2023 11:03 AM EDT Primary hypertension Elevated blood sugar ZZZ HISTORICAL HEPATITIS C AB W/REFL TO HCV RNA, QN, PCR Routine 07/13/2021 9:22 AM EST from Last 3 Months or Most Recently Relevant to Health Maintenance Results * XR Sinus 3 Views (07/27/2024 8:28 AM EST) Anatomical Region Laterality Modality Radiographic Josefa ging 07/27/2024 8:28 AM EST Narrative 07/27/2024 8:30 AM EST ? [facility] ?[address] ?[place] [address] ?XRay Report ? Signed ? Patient: Kenna Guzman ?MR#: [id number] ?? 36 ? : 1965 ?Acct:[id number] ? Age/Sex: 59 / F ?ADM Date: 07/25/24 ? Loc: HO.XRAY ? Attending Dr: Fela Grajeda MD ? Ordering Physician: Fela Grajeda MD ?? Date of Service: 07/25/24 ?? Procedure(s): XR sinus min 3V ?? Accession Number(s): [id number] ? cc: Fela Grajeda MD ? CLINICAL HISTORY: Nasal congestion w ??facial pain x 5 weeks getting worse. ? 4 view sinuses ? Comparison: None ? Findings: ?? Bones are intact. ?? Paranasal sinuses and mastoids are clear. ?? No radiopaque foreign body. ? IMPRESSION: ?? 1. No acute findings ? This document has been electronically signed by: Cliff Granado MD on ?? 07/27/2024 08:28:58 ? Dictated By: ?Cliff Granado MD ? Signed By: ?<Electronically signed by Cliff Granado MD in OV> ?07/27/24 0830 ? DD/ 0828 ? TD/TT: 07/27/24 0828 ? Sales Assistants And Salespersons: ? Procedure Note Anthony, Image - 07/27/[address] [address] XRay Report Signed Patient: Kenna GuzmanMR#: [id number] 36 : 1965Acct:[id number] Age/Sex: 59 / FADM Date: 07/25/24 Loc: INÉS Attending Dr: Fela Grajeda MD Ordering Physician: Fela Grajeda MD Date of Service: 07/25/24 Procedure(s): XR sinus min 3V Accession Number(s): [id number] cc: Fela Grajeda MD CLINICAL HISTORY: Nasal congestion w facial pain x 5 weeks getting worse. 4 view sinuses Comparison: None Findings: Bones are intact. Paranasal sinuses and mastoids are clear. No radiopaque foreign body. IMPRESSION: 1. No acute findings This document has been electronically signed by: Cliff Granado MD on 07/27/2024 08:28:58 Dictated By: Cliff Granado MD Signed By: <Electronically signed by Cliff Granado MD in OV> 07/27/24829 DD/ 7 TD/TT: 07/27/24827 Sales Assistants And Salespersons: us Fela Grajeda MD IMG XR PROCEDURES Edited Re sult - Final * BI Mammogram Screening Tomosynthesis Bilateral (10/19/2023 7:38 AM EDT) Anatomical Region Laterality Modality Breast Bilateral Mammography 10/19/2023 7:38 AM EDT Narrative 10/24/2023 6:02 AM EDT ? [facility] [place] ? [address] ?[place] [address] ? Mammography Report ? Signed ? Patient: Kenna Guzman ?MR#: [id number] ?? 36 ? : 1965 ?Acct:[id number] ? Age/Sex: 58 / F ?ADM Date: 04/10/24 ? Loc: HO.MAMMO ? Attending : Fela Grajeda MD ? Ordering Physician: Fela Grajeda MD ?Results: 1 ?? Negative ? Date of Service: 10/19/23 ?Follow Up: 1 Year From Orig ?? inal Mammogram ? Procedure(s): MM tomosynthesis screening BI ?? Accession Number(s): [id number] ? cc: Fela Grajeda MD ? EXAMINATION: ?? MM SCREENING DIGITAL BREAST TOMOSYNTHESIS, BILATERAL ? CLINICAL INFORMATION: ? Screening. Asymptomatic. ? COMPARISON: ?? Mammography: This study is compared with prior exams dating back to ?? 2017. ? TECHNIQUE: ?? Digital breast tomosynthesis is performed in both the craniocaudal and ?? mediolateral oblique views along with computer-aided detection (CAD). ?? Synthesized 2D images are generated from the tomosynthesis. ? FINDINGS: ?? There are scattered areas of fibroglandular density (ACR BI-RADS breast ?? composition Category b). ? There are no significant masses, abnormal calcifications, or other ?? abnormalities. ? MM/MM tomosynthesis screening BI ?? IMPRESSION: ?? No mammographic evidence of malignancy. ? ASSESSMENT: ? BI-RADS BI-RADS 1 - Negative ? RECOMMENDATION: ?? Routine annual mammography screening. ? 1 year F/U ? This examination should not preclude the clinical evaluation of a ?? suspicious palpable abnormality. ? This patient's information was entered into a reminder system with a ?? target due date for their next mammogram. ? Dictated By: ?Joyce Francois MD ? Signed By: ?<Electronically signed by Joyce Francois MD in OV> ? 10/24/23557 ? DD/ 0738 ? TD/TT: ? Sales Assistants And Salespersons: ? Procedure Note Anthony, Sara - 10/24/2023 [facility] [address] [place] [address] Mammography Report Signed Patient: Kenna GuzmanMR#: [id number] 36 : 1965Acct:[id number] Age/Sex: 58 / FADM Date: 10/19/23 Loc: HO.MAMMO Attending Dr: Fela Grajeda MD Ordering Physician: Fela Grajeda MDResults: 1 Negative Date of Service: 10/19/23Follow Up: 1 Year From Orig ina Mammogram Procedure(s): MM tomosynthesis screening BI Accession Number(s): [id number] cc: Fela Grajeda MD EXAMINATION: MM SCREENING DIGITAL BREAST TOMOSYNTHESIS, BILATERAL CLINICAL INFORMATION: Screening. Asymptomatic. COMPARISON: Mammography: This study is compared with prior exams dating back to 2018. TECHNIQUE: Digital breast tomosynthesis is performed in both the craniocaudal and mediolateral oblique views along with computer-aided detection (CAD). Synthesized 2D images are generated from the tomosynthesis. FINDINGS: There are scattered areas of fibroglandular density (ACR BI-RADS breast composition Category b). There are no significant masses, abnormal calcifications, or other abnormalities. MM/MM tomosynthesis screening BI IMPRESSION: No mammographic evidence of malignancy. ASSESSMENT: BI-RADS BI-RADS 1 - Negative RECOMMENDATION: Routine annual mammography screening. 1 year F/U This examination should not preclude the clinical evaluation of a suspicious palpable abnormality. This patient's information was entered into a reminder system with a target due date for their next mammogram. Dictated By: Joyce Francois MD Signed By: <Electronically signed by Joyce Francois MD in OV> 10/24/23 0558 DD/ 0738 TD/TT: Sales Assistants And Salespersons: us Fela Grajeda MD IMG BI PROCEDURES Final Res ult * (ABNORMAL) Lipid Panel, Standard (10/12/2023 11:03 AM EDT) Triglycerides 77 <150 mg/dL [facility] Comment:Desirable Triglyceri de: less than 150 mg/dLBorderline High Triglyceride 150-199 mg/dLHigh Triglyceride: 200-499 mg/dLVery High Triglyceride: greater than or equal to 5OO mg/dL Cholesterol 275(H) <200 mg/dL [facility] Comment:Desirable Cholestero l: less than 200 mg/dLBorderline High Cholesterol: 200-239 mg/dLHigh Cholesterol: greater than 239 mg/dL LDL Cholesterol Calculated 178(H) <100 mg/dL [facility] Comment:Desirable LDL: less than 100 mg/dLNear Optimal/Above Optimal LDL: 110- 129 mg/dLBorderline High LDL: 130-159 mg/dLHigh LDL: 160-189 mg/dLVery High LDL: greater than or equal to 190 mg/dL HDL Cholesterol 82 >40 mg/dL [facility] Comment:Desirable HDL: great er than 40 mg/dL Note: This HDL assay may give artificially low results in patients with liver disease. Blood Venous blood specimen / Unknown 10/12/2023 11:03 AM EDT 10/12/2023 2:10 PM EDT us Fela Grajeda MD LAB BLOOD ORDERABLES Final Result [facility] [address] [place] [phone] * HEPATITIS C AB W/REFL TO HCV RNA, QN, PCR (07/13/2021 9:22 AM EST) HEPATITIS C ANTIBODY NON-REACT [facility] NON-REACT [facility] INDEX 0.01 <1.00 [facility] Comment: ?? HCV antibody was non-reactive. There is no laboratory ?? evidence of HCV infection. ?? In most cases, no further action is required. However, if recent HCV exposure is suspected, a test for HCV RNA (test code 37716) is suggested. ?? For additional information please refer to http://education.Potential/faq/OHK09i7 (This link is being provided for informational/ educational purposes only.) ?? 07/13/2021 9:22 AM EST Fela Grajeda MD HISTORICAL/NON ORDERABLE LA JUVENAL Final Result [facility] [address] from Last 3 Months or Most Recently Relevant to Health Maintenance Insurance [employer] Care Teams Regulatory Compliance Officer Relationship Specialty Start Date End Date Fela Grajeda MD [address] [place] [address] PCP - General Internal Medicine 07/11/18
--- OUTSIDE RECORDS SUMMARY | 2024-10-15 11:43 | XMS_ITS | Encounter Summary ---
Author Organization [employer] Address [address] [place] [address] Care Team Providers Care Supervisor Ticket Sales Name Role Phone Fela Grajeda MD Primary Care Provider [phone] Reason for Visit * Reason Comments Annual Exam Encounter Details Date Type Department Care Team ([facility] st Contact Info) Description 10/15/2024 9:30 AM EDT Office Visit [facility] [address] [place] [address] Fela Grajeda MD [address] [place] [address] Annual physical exam (Primary Dx); Subacute pansinusitis; Primary hypertension; Palpitations; Hypercholesterolemia Social History Tobacco Use Types Packs/Day Years [...] AM EDT documented as of this encounter Last Filed Vital Signs Vital Sign Reading [...] Mass Index 28.34 10/15/2024 9:14 AM EDT documented in this encounter Plan of Treatment Scheduled Orders Name Type Priority Associated Diagnoses Orde r Schedule CBC auto differential Lab Routine Annual physical exam Palpitations Expected: 10/15/2024 (Approximate), Expires: 10/15/2025 Comprehensive Metabolic Panel Lab Routine Annual physical exam Palpitations Expected: 10/15/2024 (Approximate), Expires: 10/15/2025 Lipid Panel, Standard Lab Routine Annual physical exam Palpitations Expected: 10/15/2024 (Approximate), Expires: 10/15/2025 HIV-1/2 Antigen and Antibodies, Fourth Generation, with Reflexes Lab Routine Annual physical exam Palpitations Expected: 10/15/2024 (Approximate), Expires: 10/15/2025 TSH W/Reflex to FT4 Lab Routine Annual physical exam Palpitations Expected: 10/15/2024 (Approximate), Expires: 10/15/2025 Hemoglobin A1c Lab Routine Annual physical exam Palpitations Expected: 10/15/2024 (Approximate), Expires: 10/15/2025 documented as of this encounter Visit Diagnoses Diagnosis Annual physical exam- Primary Routine general medical examination at a [facility] care facility Subacute pansinusitis Primary hypertension Unspecified essential hypertension Palpitations Hypercholesterolemia Pure hypercholesterolemia documented in this encounter Additional Health Concerns Assessment Noted Time PHQ-9 Depression Total Score: 7 10/16/19 25 9:53 AM EDT documented as of this encounter Care Teams Supervisor Ticket Sales Relationship Specialty Start Date End Date Fela Grajeda MD [address] [place] [id number] PCP - General Internal Medicine 07/11/18 documented as of this encounter
[2024-10-15 13:59] LABS: MANUAL DIFF FLAG NO
[2024-10-15 14:06] LABS: Basophils Absolute Auto 0.1 X10*3/uL (0.0-0.2); Basophils Percent Auto 1.4 % (0-2); Eosinophils Absolute Auto 0.1 X10*3/uL (0.0-0.4); Eosinophils Percent Auto 1.6 % (0-4); Hematocrit 38.4 % (37.0-47.0); Hemoglobin 12.4 g/dl (12.0-16.0); Imm Gran Abs Auto 0.01 X10*3/uL (0.00-0.03); Imm Gran Pct Auto 0.2 % (0.0-0.4); Lymphocytes Absolute Auto 2.6 X10*3/uL (1.2-4.9); Lymphocytes Percent Auto 44.8 % (20-40); Mean Corpuscular HGB Conc 32.3 g/dl (31.0-35.0); Mean Corpuscular Hemoglobin 32.2 pg (27.0-33.0); Mean Corpuscular Volume 99.7 fL (80.0-98.0); Mean Platelet Volume 10.9 fL (9.4-12.3); Monocytes Absolute Auto 0.5 X10*3/uL (0.1-1.2); Neutrophils Absolute Auto 2.5 x10*3/uL (2.0-8.3); Platelet Count 266 X10*3/uL (160-400); Red Blood Count 3.85 X10*6/uL (4.20-5.50); Red Cell Distribution Width 12.6 % (11.0-16.0); White Blood Count 5.8 X10*3/uL (4.8-10.8)
[2024-10-15 14:21] LABS: Estimated Average Glucose 108 mg/dL; Hemoglobin A1C 118.9439 umol/L; Hemoglobin A1c % 5.4 % (<6.0); Total Hemoglobin (HGBA1C) 3314.5504 umol/L
[2024-10-15 14:45] LABS: TSH reflex Free T4 1.24 uIU/mL (0.32-4.0)
[2024-10-15 14:52] LABS: Anion Gap 10 (12-20)
[2024-10-15 14:57] LABS: Alanine Aminotransferase 20 U/L (0-31); Albumin Level 4.2 g/dL (3.5-5.0); Alkaline Phosphatase 61 U/L (39-117); Aspartate Amino Transferase 27 U/L (5-31); Bilirubin Total 0.7 mg/dL (0.0-1.0); Blood Urea Nitrogen 18 mg/dL (9-16); Calcium 9.4 mg/dL (8.4-10.2); Carbon Dioxide 26 mmol/L (22-29); Chloride 110 mmol/L (96-108); Cholesterol 236 mg/dL (<200); Estimated Glomerular Filt Rate > 60; Glucose Random 83 mg/dL (60-115); HDL Cholesterol 85 mg/dL (>40); LDL Cholesterol Calculated 140 mg/dL (<100); Potassium 4.2 mmol/L (3.3-5.1); Sodium 142 mmol/L (135-145); Total Protein 6.8 g/dL (6.5-8.0); Triglycerides 55 mg/dL (<150)
[2024-10-16 04:28] LABS: HIV AB/AG Nonreactive (Nonreactive); HIV Num 1 0.06 S/CO (0.00-0.99)
== END 2024-10-15 10:03 | disposition home or self-care (01) ==
LOC: HO.CHCLDS 10:02
PROVIDERS: Visit Provider Internal Medicine
DX: Z00.00 Encounter for general adult medical examination without abnormal findings (principal); R00.2 Palpitations; Z13.1 Encounter for screening for diabetes mellitus
CPT/HCPCS: 36415; 80053; 80061; 83036; 84443; 85025; 87389

== ENCOUNTER 2024-10-24 07:30 | Outpatient (REF) | payer OTHER, SELFPAY ==
--- OUTSIDE RECORDS SUMMARY | 2024-10-24 07:32 | XMS_ITS | Encounter Summary ---
Author Organization [employer] Address [address] [facility] 7 [place] [address] Care Team Providers Care Estate Planning Attorney Name Role Phone Fela Grajeda MD Primary Care Provider [phone] Encounter Details Date Type Department Care Team (Late st Contact Info) Description 10/16/2024 Orders Only [facility] [address] [place] [address] Fela Grajeda MD [address] [place] [address] Macrocytosis (Primary Dx) Social History Tobacco Use Types Packs/Day Years [...] as of this encounter Plan of Treatment Scheduled Orders Name Type Priority Associated Diagnoses Orde r Schedule Vitamin B12/Folate, Serum Panel Lab Routine Macrocytosis Expected: 10/16/2024, Expires: 10/16/2025 documented as of this encounter Visit Diagnoses Diagnosis Macrocytosis- Primary Other specified diseases of blood and blood-forming organs documented in this encounter Additional Health Concerns Assessment Noted Time PHQ-9 Depression Total Score: 7 10/16/19 25 9:53 AM EDT documented as of this encounter Care Teams Estate Planning Attorney Relationship Specialty Start Date End Date Fela Grajeda MD [address] [place] [id number] PCP - General Internal Medicine 07/11/18 documented as of this encounter
--- OUTSIDE RECORDS SUMMARY | 2024-10-24 07:32 | XMS_ITS | Clinical Summary ---
Author Organization [facility] Address [address] [place] [address] Care Team Providers Care Set Builder Name Role Phone Unavailable Primary Care Provider Unavailabl e Surgical History Surgery Date Site/Laterality Comments HYSTERECTOMY PROCEDURE: HISTORICAL HYSTERECTOMY Medical History Medical History Date Comments Pure hypercholesterolemia 12/21/2006 DX:Pur e hypercholesterolemia Unspecified asthma(493.90) 12/29/2006 DX:Un specified asthma(493.90) Family History Relation Name Status Comments Aunt [place] Father Alive CVA Mother Alive High cholestero l Sister Alive Uncle 1 [place] Uncle 2 [place] Uncle 3 [place] Social History Tobacco Use Types Packs/Day Years [...] age to complete this topic Meningococcal B Vaccine Aged Out No l onger eligible based on patient's age to complete [...]
--- OUTSIDE RECORDS SUMMARY | 2024-10-24 07:33 | XMS_ITS | Encounter Summary ---
Author Organization [employer] Address [address] [place] [address] Care Team Providers Care Teacher Ballet Name Role Phone Fela Grajeda MD Primary Care Provider [phone] Reason for Visit * Reason Comments Med Refill Encounter Details Date Type Department Care Team ([facility] Contact Info) Description 01/09/2024 Refill [facility] [address] [place] [address] Fela Grajeda MD [address] [place] [address] Seasonal allergies Social History Tobacco Use Types [...] documented as of this encounter Care Teams Teacher Ballet Relationship Specialty Start Date End Date Fela Grajeda MD [address] [place] [address] PCP - General Internal Medicine 07/11/18 documented as of this encounter
--- OUTSIDE RECORDS SUMMARY | 2024-10-24 07:33 | XMS_ITS | Data Portability ---
Author Organization [place] [facility], Allergy Address [address] [address] Care Team Providers Care Gift Manager Name Role Phone INDU ROPER Referring Provider [...] INTERNAL AUDITORY CANAL, W/WO CONTRAST 2024 025 [facility] ([facility]), [address], [place], [address], 13:51:40 CT, sinuses, w/o contrast 2024 025 [facility], [address] , [facility] [address], [place], [address], 22:36:09 Medication Orders ofloxacin 0.3 % ear drops 2024 025 [facility] #[id number], [address] [place], [address], 10:14:11 gabapentin 300 mg capsule 2024 025 [facility] #[id number], [address] [place], [address], 10:16:39 Patient TargetsNo targets recorded. Patient InstructionsNo instructions recorded. Reason for Referral None Reported. Results Created Date Observation Date Name Description Value Unit Range Abnormal Flag Note LastModifiedBy Organization Detail LastModifiedTime 08/04/1908/02/2024 CT, sinus es, w/o contr ast No observ ation record ed. [email or web address] [facility] [address], [address], 08/08/2024 12:48:39 08/04/1908/02/2024 CT, sinus es, w/o contr ast No observ ation record ed. [facility] [place] [address], [address], 08/08/2024 12:47:16 08/16/1908/15/2024 MRI, brain + brain stem, w/wo contr [facility] Access ion Number : [id number] Mike holly Name: Elida Guzman Record Number : [id number] Date of : 1965 Date of Exam: 2024 Referr ing Physic paris: [facility] [address], [facility] [address] [place] [address] Exam: MR Brain (C-/C+ ) CPT 90536 Room Descri ption: [place] Siem Verio 3.0T INDICA TION: Left ear tinnit us TECHNI QUE: Multip lanar multis equenc e MRI of the brain using an IAC protoc ol was perfor med before and after the admini strati on of 10 mL of Dotare m. COMPAR GINI: No prior FINDIN GS: The bilate ral internal sales al audito ry canals are normal in [...] enhanc ement in the bilate ral internal sales al audito ry canals . The visual ized brain is unrema rkable . The visual ized ventri cles and sulci normal . The midlin e the struct ures, main vascul ar flow voids, and basal cister ns are normal . There is fluid in inferi or left mastoi d air cells. IMPRES CIERRA: Unrema rkable bilate ral internal sales al audito ry canals . Small left mastoi d effusi on. Electr onical ly Signed By: Nicolasa Phan MD [facility] ([facility]) [address], [place], [address], 08/20/2024 12:58:05 08/20/19 25 audio gram No observ ation record ed. BARCODE Not Available 2024 15:37:28 Result Notes None recorded. 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 Active 2024 CESAR MISHRA MD [address], [place], [address], [facility] - [facility] [place] 5 14:05:05 Sensorineur al hearing loss of bilateral ears 434795622 Active 2024 CR FLORESETHEL SEVILLA [address], [place], [address], [place] - [facility] [place] 5 10:49:21 Tinnitus of left ear 7626847457830 Active 2024 CESAR MISHRA MD [address] [facility],[address], [place], [address], [place] - [facility] [place] 5 11:16:45 Chronic rhinitis 62360703 Active 2024 CESAR MISHRA MD [address] [facility],[address], [place], [address], [facility] - [facility] [place] 5 11:17:09 Non-allergi c rhinitis 792664100364 Active 2024 CESAR MISHRA MD [address] [facility],[address], [place], [address], [facility] - [facility] [place] 5 11:17:20 Allergic rhinitis 08315867 Active 2024 CESAR MISHRA MD [address] [facility],[address], [place], [address], [facility] - [facility] [place] 11:17:20 Seasonal allergic rhinitis 626007251 Active 2024 CESAR MISHRA MD [address] [facility],[address], [place], [address], [place] - [facility] [place] 5 11:17:20 Disorder of left Eustachian tube 0460772694883 109 Active 2024 CESAR MISHRA MD [address] [facility] [address], [place], [address], [place] [facility] [place] 16:05:15 Problem Notes None recorded. Procedures Surgical History Date Name Laterality Status Provider Name and Address Organization Details Recorded Time 08/30/19 25 Myringotomy with Aspiration left completed CESAR MISHRA MD [address], [address], [facility] - [facility] 09/02/2024 17:24:11 08/10/19 25 Comp Audio with Tymps (36939 & 21929) completed ETHEL MURRAY 100 [facility],[address], [address], [facility] - [facility] 08/10/2024 10:48:45 07/27/19 25 JMSNasal/Sinus Endoscopy completed CESAR MISHRA MD [address] [place] [address], [address], [facility] - [facility] 07/27/2024 14:04:54 hysterectomy completed CESAR MISHRA MD [address] [place] [address], [address], [facility] - [facility] 07/27/2024 13:31:56 Imaging Results Imaging Date Name Status LastModified by Organiz ation Details LastModified Time 08/02/2024 CT, sinuses, w/o contrast completed [facility] [address], [address], 08/08/2024 12:48:39 08/02/2024 CT, sinuses, w/o contrast completed [facility] [address], [address], 08/08/2024 12:47:16 08/15/2024 MRI, brain + brain stem, w/wo contrast completed [facility] ([facility]) [address] [place], [address], 08/20/2024 12:58:05 08/20/2024 audiogram completed BARCODE Information no t available 08/20/2024 15:37:28 Procedure Notes None recorded. Medical Equipment None Reported. Allergies Allergen ID Allergen Name Allergen Category Reaction Reaction Severity Criticality Documentation Date Start Date Code Code System Note Provider Name and Address Organization Details Recorded Time 069060 azithromy segun medicatio n Not available Not available Not available 07/27/2024 91158 RxNorm Jenny Potvin null, [place] - [facility] [place] 13:23:14 967174 amitripty line medicatio n Not available Not available Not available 07/27/2024 704 RxNorm Jenny Potvin null, [place] - [facility] [place] 5 13:23:23 367023 clindamyc in Not available Not available Not available Not available 07/27/2024 2582 RxNorm Jenny Potvin null, [place] - [facility] [place] 13:23:39 887314 prednison e medicatio n Not available Not available Not available 07/27/2024 8640 RxNorm Jenny Potvin null, [place] [facility] [place] 5 13:23:49 098828 rofecoxib medicatio n Not available Not available Not available 07/27/2024 07999 8 RxNorm Jenny Potvin null[place] [facility] [place] 5 13:24:01 882576 Medicinal product containin g macrolide and acting as antibacte rial agent (product) medicatio n Not available Not available Not available 07/27/2024 64898 8007 SNOMED Jenny Potvin null, [place] [facility] [place] 5 13:24:13 179367 erythromy segun medicatio n Not available Not available Not available 07/27/2024 4053 RxNorm Jenny Potvin null, [place] - [facility] [place] 5 13:24:35 473910 nortripty line medicatio n Not available Not available Not available 07/27/2024 7531 RxNorm Jenny Potvin null, [place] - [facility] [place] 5 13:24:44 094755 hydralazi ne medicatio n Not available Not available Not available 07/27/2024 5470 RxNorm Jenny Potvin null, [place] - [facility] [place] 5 13:24:53 688405 hydrochlo rothiazid e medicatio n Not available Not available Not available 07/27/2024 5487 RxNorm Jenny watkins [place] - [facility] 5 13:25:10 975648 fluconazo le medicatio n Not available Not available Not available 07/27/2024 4450 RxNorm Jenny watkins [place] - [facility] 5 13:25:22 Medications Name Sig Start [...] Updated DateTime 09/28/2024 154.94 cm 26.6 kg/m2 94874.52 g Jenny Carter [place] - [facility] 09/28/2024 10:14:01 Date Recorded Body height Body mass index (BMI) Body weight Provider Name and Address Organization Details Last Updated DateTime 07/27/2024 154.94 cm 26.5 kg/m2 63845.93 g Jenny Carter [place] - [facility] 07/27/2024 13:20:28 Date Recorded Body height Body mass index (BMI) Body weight Provider Name and Address Organization Details Last Updated DateTime 08/10/2024 154.94 cm 26.3 kg/m2 10201.34 g Jenny Carter [place] - [facility] 08/10/2024 10:16:23 Date Recorded Body height Body mass index (BMI) Body weight Provider Name and Address Organization Details Last Updated DateTime 08/30/2024 154.94 cm 26.6 kg/m2 11793.52 g Jenny Carter [place] - [facility] [place] 08/30/2024 15:50:20 Social History Question Answer Notes LastModified by Organizat ion Details LastModified Time Tobacco Smoking Status Former Smoker CESAR MISHRA MD [address] [place] [address], [address], [place] - [facility] [place] 07/27/2024 13:31:44 When Did You Quit Smoking? 16+yearssinc elastcigaret te [email or web address] Information not available 07/27/2024 Sex: Unknown Functional Status None recorded. Mental Status None recorded. Family History Nothing Reported Notes:Vertigo Mother - Onset Age: 56, of Age: 70 Hearing loss Mother - Onset Age: 5, of Age: 70 Medical History Condition Response Asthma Y Headaches Y Gynecological HistoryNo gynecological history recorded. Obstetrics History GPAL:G 0 P 0 0 0 0 Past Encounters Encounter ID Performer Location Encounter Start Date Encounter Closed Date Diagnosis/Indication Diagnosis SNOMED-CT Code Diagnosis ICD10 Code Diagnosis Note [id number] CESAR MISHRA MD [facility] [address] [address] 07/27/2024 13:16:55 07/27/2024 14:09:51 Atypical facial pain 52205378 G50.1 No evidence of bacterial infection on [...] s, but agrees to try gabapentin again. [id number] CESAR MISHRA MD [facility] [address] [address] 08/10/2024 10:10:09 08/10/2024 13:04:08 Sensorineural hearing loss of bilateral ears 652871458 H90.3 Audiologic al evaluation results: Right ear: [...] a hermetic seal}} Tinnitus of left ear 010 8059289 106 H93.12 Chronic rhinitis 8867526 6 J31.0 [id number] CESAR MISHRA MD [facility] [address] [address] 08/30/2024 15:44:37 08/30/2024 16:11:56 Disorder of left Eustachian tube 0083369286 108068 H69.92 59-year-ol d female with left-sided head [...] does, we can proceed with tube placement. [id number] CESAR MISHRA MD [facility] 100 [place] [place] [address] 09/28/2024 09:50:16 09/28/2024 10:28:10 Disorder of left Eustachian tube 6921550640 138894 H69.92 Symptoms are markedly improved after myringotom [...] Ross Member ID Guarantor Name 07/27/2024 1 [facility] [id number] Kenna Guzman [id number] 1 Kenna Guzman 08/10/2024 1 [facility] [id number] Kenna Guzman [id number] 1 Kenna Guzman 08/30/2024 1 [facility] [id number] Kenna Guzman [id number] 1 Kenna Guzman 09/28/2024 1 [facility] [id number] Kenna Guzman [id number] 1 Kenna Guzman Notes Date Note Type Note Provider Name and Address Organization Details Recorded Time 5 text/html 59 yo F with acute sinus symptoms. started itching in the earheadachestinnitus on the left Had XR at [place] which looked normal left extending to ear cough betterno meds now a couple abx but did not help augmentin and then a second with steroidoriginally infected tooth, now a new root canal mandibular usually 3-4 sinus infections per year here 10 years ago (Kenna Nielsen chart [id number]) CT negativeBeer and mold positive for allergy testing , has been on flonase prednisone allergynortriptyline allergygabapentin did not seem to help in past has been on sudafed and mucinex CESAR MISHRA MD [address] [place] [address],[address], [address], [facility] - [facility] 08/08/2024 12:44:27 5 text/html No improvement in symptoms. She is very distressed by her symptoms. PV: 59 yo F with acute sinus symptoms. started itching in the earheadachestinnitus on the left Had XR at [place] which looked normal left extending to ear cough betterno meds now a couple abx but did not help augmentin and then a second with steroidoriginally infected tooth, now a new root canal mandibular usually 3-4 sinus infections per year here 10 years ago (Kenna Nielsen chart [id number]) CT negativeBeer and mold positive for allergy testing , has been on flonase prednisone allergynortriptyline allergygabapentin did not seem to help in past has been on sudafed and mucinex CESAR MISHRA MD [address] [facility],[address], [address], [facility] - [facility] 08/14/2024 08:32:26 5 text/html 59-year-old female presents today for follow-up. Her MRI did not show any concerning findings, but did show some fluid in a few of the left sided air cells. CESAR MISHRA MD [address] [facility] [address], [place], [address], [facility] - [facility] 09/02/2024 17:25:28 5 text/html Dizziness is gone, pressure 80% better.Second drops made a difference in the ear almost immediately. CESAR MISHRA MD [address] [facility] [address], [address], [facility] - [facility] 09/28/2024 10:29:29 OBGyn Episode No OBEpisode recorded.
--- OUTSIDE RECORDS SUMMARY | 2024-10-24 07:33 | XMS_ITS | Clinical Summary ---
Author Organization [employer] Address [address] [place] [address] 7 [place] [address] Care Team Providers Care Med Care Manager Name Role Phone Fela Grajeda MD Primary Care Provider [phone] Allergies Active Allergy Reactions Criticality Noted Date [...] Encounters Date Type Department Care Team Description 10/16/2024 Orders Only [facility] [address] [place] [phone] Fela Grajeda MD Macrocytosis (Primary Dx) 10/15/2024 9:30 AM EDT Office Visit [facility] [address] [place] [address] Fela Grajeda MD Annual physical exam (Primary Dx); Subacute pansinusitis; Primary hypertension; Palpitations; Hypercholesterolemia 10/15/2024 Travel from Last 3 Months Immunizations Name Administration [...] FIT DNA/Cologuard 1965 FIT 1965 FOBT 1965 Sigmoidoscopy 1965 Hepatitis B Vaccines (1 [...] Tobacco Screening 10/15/2025 10/15/2024 Mammogram 10/18/2025 10/19/2023, 04/0 10/2022, 10/07/2021, Additional history exists Colonoscopy 10/03/2028 Colorectal Cancer Screening 10/03/2028 Lipid Panel 10/15/2029 10/15/2024, 04/0 09/2023, 10/08/2022, Additional history exists RSV Patients and Patients Aged 60 years or older (1 - 1-dose 75+ series) 2040 Hepatitis C Screening Completed 07/13/2021 Zoster Vaccines Completed 09/15/2021, 07/13/2021 HIV Screening Completed 10/15/2024 HIB Vaccines Aged Out No longer eligi [...] topic Meningococcal Vaccine Aged Out No srinivasa clotilde eligible based on patient's age to complete this topic RSV under 20 months Aged Out No longe r eligible based on patient's age to complete this topic Rotavirus Vaccines Aged Out No longer eligible based on patient's age to complete this topic Procedures Procedure Name Priority Date/Time Associated Diagnosis Comments HIV 1/2 ANTIGEN/ANTIBODY, FOURTH GENERATION W/RFL Routine 10/15/2024 10:09 AM EDT Annual physical exam Palpitations HEMOGLOBIN A1C Routine 10/15/2024 10:04 AM EDT Annual physical exam Palpitations TSH W/REFLEX TO FT4 Routine 10/15/2024 1 0:04 AM EDT Annual physical exam Palpitations LIPID PANEL, STANDARD Routine 10/15/2024 10:04 AM EDT Annual physical exam Palpitations COMPREHENSIVE METABOLIC PANEL Routine 10/15/2024 10:04 AM EDT Annual physical exam Palpitations CBC WITH AUTO DIFFERENTIAL Routine 10/15/2024 10:04 AM EDT Annual physical exam Palpitations XR SINUS 3 VIEWS Routine 07/27/2024 8:28 AM EST Subacute pansinusitis BI MAMMOGRAM SCREENING TOMOSYNTHESIS BILATERAL Routine 10/19/2023 7:38 AM EDT ZZZ HISTORICAL HEPATITIS C AB W/REFL TO HCV RNA, QN, PCR Routine 07/13/2021 9:22 AM EST from Last 3 Months or Most Recently Relevant to Health Maintenance Results * HIV-1/2 Antigen and Antibodies, Fourth Generation, with Reflexes (10/15/2024 10:09 AM EDT) HIV AB/AG Nonreactive Nonreactive [facility] Comment:HIV-1 p24 Ag and/or HIV-1/HIV-2 Ab not detected.A test result that is nonreactive does not exclude thepossibility of exposure to or infection with HIV-1 and/orHIV-2. Nonreactive results in this assay for individualswith prior exposure to HIV-1 and/or HIV-2 may be due toantigen and antibody levels that are below the limit ofdetection of this assay.The MyHeritageniOptimitive HIV Ag/Ab Combo assay result andsupplemental assay results should be interpreted inconjunction with the patient's clinical presentation,history and other laboratory results. If the results areinconsistent with clinical evidence, additional testing issuggested to confirm the result. Blood Venous blood specimen / Unknown 10/15/2024 10:09 AM EDT 10/15/2024 1:56 PM EDT us Fela Grajeda MD LAB BLOOD ORDERABLES Final Result [facility] [address] [place] [address] [phone] * TSH W/Reflex to FT4 (10/15/2024 10:04 AM EDT) TSH reflex Free T4 1.24 0.32 - 4.0 uIU/mL [facility] Blood Venous blood specimen / Unknown 10/15/2024 10:04 AM EDT 10/15/2024 1:56 PM EDT us Fela Grajeda MD LAB BLOOD ORDERABLES Final Result [facility] [address] [place] [address] [phone] * (ABNORMAL) CBC auto differential (10/15/2024 10:04 AM EDT) White Blood Count 5.8 4.8 - 10.8 X10*3/uL [facility] Red Blood Count 3.85(L) 4.20 - 5.50 X10*6/uL [facility] Hemoglobin 12.4 12.0 - 16.0 g/dl [facility] Hematocrit 38.4 37.0 - 47.0 % [facility] Mean Corpuscular Volume 99.7(H) 80.0 - 98.0 fL [facility] Mean Corpuscular Hemoglobin 32.2 27.0 - 33.0 pg [facility] Mean Corpuscular HGB Conc 32.3 31.0 - 35.0 g/dl [facility] Red Cell Distribution Width 12.6 11.0 - 16.0 % [facility] Platelet Count 266 160 - 400 X10*3/uL [facility] Mean Platelet Volume 10.9 9.4 - 12.3 fL [facility] Neutrophils Percent Auto 44.0(L) 45 - 73 % [facility] Imm Gran Pct Auto 0.2 0.0 - 0.4 % [facility] Lymphocytes Percent Auto 44.8(H) 20 - 40 % [facility] Monocytes Percent Auto 8.0 2 - 11 % [facility] Eosinophils Percent Auto 1.6 0 - 4 % [facility] Basophils Percent Auto 1.4 0 - 2 % [facility] NRBC Pct Auto 0.0 0.0 - 0.2 /100WBC [facility] Neutrophils Absolute Auto 2.5 2.0 - 8.3 x10*3/uL [facility] Imm Gran Abs Auto 0.01 0.00 - 0.03 X10*3/uL [facility] Lymphocytes Absolute Auto 2.6 1.2 - 4.9 X10*3/uL [facility] Monocytes Absolute Auto 0.5 0.1 - 1.2 X10*3/uL [facility] Eosinophils Absolute Auto 0.1 0.0 - 0.4 X10*3/uL [facility] Basophils Absolute Auto 0.1 0.0 - 0.2 X10*3/uL [facility] NRBC Abs Auto 0.000 0.0 - 0.012 X10*3/uL [facility] Blood Venous blood specimen / Unknown 10/15/2024 10:04 AM EDT 10/15/2024 1:56 PM EDT us Fela Grajeda MD LAB BLOOD ORDERABLES Final Result [facility] [address] [place] [phone] * Hemoglobin A1c (10/15/2024 10:04 AM EDT) Hemoglobin A1c 5.4 <6.0 % [facility] Comment:Hemoglobin A1C Refer ence Range Adults: 4.8 - 6.0 % Non diabetic: < 6.0 % Goal: < 7.0 %Additional Action Suggested: > 8.0 %Note: Hemoglobin A1c results are invalid for patients with abnormal amounts of HbF. Blood transfusions may impact the HbA1c concentration in the patient sample. Estimated Average Glucose 108 mg/dL [facility] Comment:eAG = Estimated ave rage glucose which is %A1C expressed asaverage glucose, using the formula of the M2V-VqajfcjJazstpz Glucose study (ADAG), Diabetes Care, Vol.31,#8,Feb. 2007 Blood Venous blood specimen / Unknown 10/15/2024 10:04 AM EDT 10/15/2024 1:56 PM EDT us Fela Grajeda MD LAB BLOOD ORDERABLES Final Result [facility] [address] [place] [address] [phone] * (ABNORMAL) Lipid Panel, Standard (10/15/2024 10:04 AM EDT) Triglycerides 55 <150 mg/dL [facility] Comment:Desirable Triglyceri de: less than 150 mg/dLBorderline High Triglyceride 150-199 mg/dLHigh Triglyceride: 200-499 mg/dLVery High Triglyceride: greater than or equal to 5OO mg/dL Cholesterol 236(H) <200 mg/dL [facility] Comment:Desirable Cholestero l: less than 200 mg/dLBorderline High Cholesterol: 200-239 mg/dLHigh Cholesterol: greater than 239 mg/dL LDL Cholesterol Calculated 140(H) <100 mg/dL [facility] Comment:Desirable LDL: less than 100 mg/dLNear Optimal/Above Optimal LDL: 110- 129 mg/dLBorderline High LDL: 130-159 mg/dLHigh LDL: 160-189 mg/dLVery High LDL: greater than or equal to 190 mg/dL HDL Cholesterol 85 >40 mg/dL [facility] Comment:Desirable HDL: great er than 40 mg/dL Note: This HDL assay may give artificially low results in patients with liver disease. Blood Venous blood specimen / Unknown 10/15/2024 10:04 AM EDT 10/15/2024 1:56 PM EDT Fela Grajeda MD LAB BLOOD ORDERABLES Final Result [facility] [address] [place] [address] [phone] * (ABNORMAL) Comprehensive Metabolic Panel (10/15/2024 10:04 AM EDT) Sodium 142 135 - 145 mmol/L [facility] Potassium 4.2 3.3 - 5.1 mmol/L [facility] Chloride 110(H) 96 - 108 mmol/L [facility] Carbon Dioxide 26 22 - 29 mmol/L [facility] Anion Gap 10(L) 12 - 20 [facility] Urea Nitrogen (BUN) 18(H) 9 - 16 mg/dL [facility] Creatinine, Serum 0.74 0.5 - 1.4 mg/dL [facility] Estimated Glomerular Filt Rate >60 [facility] Comment:Chronic Kidney Disea se: Estimated GFR < 60 mL/min/1.27n9Nliuri Kidney Disease: Estimated GFR < 15 mL/min/1.73m2 Glucose 83 60 - 115 mg/dL [facility] Calcium 9.4 8.4 - 10.2 mg/dL [facility] Bilirubin, Total 0.7 0.0 - 1.0 mg/dL [facility] Aspartate Amino Transferase 27 5 - 31 U/L [facility] Alanine Aminotransferase 20 0 - 31 U/L [facility] Total Protein 6.8 6.5 - 8.0 g/dL [facility] Albumin Level 4.2 3.5 - 5.0 g/dL [facility] Alkaline Phosphatase 61 39 - 117 U/L [facility] Blood Venous blood specimen / Unknown 10/15/2024 10:04 AM EDT 10/15/2024 1:56 PM EDT us Fela Grajeda MD LAB BLOOD ORDERABLES Final Result Performing Organization Address City/State/[facility] Co de Phone Number [facility] [address] [place] [address] [phone] * XR Sinus 3 Views (07/27/2024 8:28 AM EST) Anatomical Region Laterality Modality Radiographic Josefa ging 07/27/2024 8:28 AM EST Narrative 07/27/2024 8:30 AM EST ? [facility] ?[address] ?[place] [address] ?XRay Report ? Signed ? Patient: Guzman,Kenna ?MR#: [id number] ?? 36 ? : 1965 ?Acct:[id number] ? Age/Sex: 59 / F ?ADM Date: 01/15/25 ? Loc: HO.XRAY ? Attending Dr: Fela Grajeda MD ? Ordering Physician: Fela Grajeda MD ?? Date of Service: 07/25/24 ?? Procedure(s): XR sinus min 3V ?? Accession Number(s): [id number] ? cc: Fela Grajeda MD ? CLINICAL [...] MD in OV> ?07/27/24 0830 ? DD/ 7 ? TD/TT: 07/27/24827 ? Prize Jacker: ? Procedure Note Donfabriceter, Image - 07/27/[address] [address] XRay Report Signed Patient: Michael Guzman#: [id number] 36 : 1965Acct:[id number] Age/Sex: 59 / FADM Date: 07/25/24 Loc: INÉS Attending Dr: Fela Grajeda MD Ordering Physician: Fela Grajeda MD Date of Service: 07/25/24 Procedure(s): XR sinus min 3V Accession Number(s): [id number] cc: Fela Grajeda MD CLINICAL HISTORY: Nasal [...] signed by Cliff Granado MD in OV> 07/27/2430 DD/ 7 TD/TT: 07/27/24827 Prize Jacker: us Fela Grajeda MD IMG XR PROCEDURES Edited Re sult - Final * BI Mammogram Screening Tomosynthesis Bilateral (10/19/2023 7:38 AM EDT) Anatomical Region Laterality Modality Breast Bilateral Mammography 10/19/2023 7:38 AM EDT Narrative 10/24/2023 6:02 AM EDT ? [facility] ? [address] ?[place], [place] [address] ? Mammography Report ? Signed ? Patient: Kenna Guzman ?MR#: [id number] ?? 36 ? : 1965 ?Acct:[id number] ? Age/Sex: 58 / F ?ADM Date: 10/19/23 ? Loc: HO.MAMMO ? Attending Dr: Fela Grajeda MD ? Ordering Physician: Fela Grajeda MD ?Results: 1 ?? Negative ? Date of Service: 10/19/23 ?Follow Up: 1 Year From Orig ?? inal Mammogram ? Procedure(s): MM tomosynthesis screening BI ?? Accession Number(s): [id number] ? cc: Fela Grajeda MD ? EXAMINATION: ?? MM SCREENING DIGITAL BREAST TOMOSYNTHESIS, BILATERAL ? CLINICAL INFORMATION: ? Screening. Asymptomatic. ? COMPARISON: ?? Mammography: This study is compared with prior exams dating back to ?? 2018. ? TECHNIQUE: ?? Digital breast tomosynthesis is [...] by Joyce Francois MD in OV> ? 10/24/23 0558 ? DD/ 0738 ? TD/TT: ? Prize Jacker: ? Procedure Note Sara Cruz - 10/24/2023 [facility] [address] [place] [address] Mammography Report Signed Patient: Kenna GuzmanMR#: [id number] 36 : 1965Acct:[id number] Age/Sex: 58 / FADM Date: 10/19/23 Loc: SILVIA.MAMMO Attending Dr: Fela Grajeda MD Ordering Physician: Fela Grajeda MDResults: 1 Negative Date of Service: 10/19/23Follow Up: 1 Year From Orig inal Mammogram Procedure(s): MM tomosynthesis screening BI Accession Number(s): [id number] cc: Fela Grajeda MD EXAMINATION: MM SCREENING [...] in OV> 10/24/23 0558 DD/ 0738 TD/TT: Prize Jacker: Fela Grajeda MD IMG BI PROCEDURES Final Res ult * HEPATITIS C AB W/REFL TO HCV RNA, QN, PCR (07/13/2021 9:22 AM EST) HEPATITIS C ANTIBODY NON-REACT CAIO NON-REACT CAIO [facility] INDEX 0.01 <1.00 [facility] Comment: ?? HCV antibody was non-reactive. There is no laboratory ?? evidence of HCV infection. ?? In most cases, no further action is required. However, if recent HCV exposure is suspected, a test for HCV RNA (test code 44685) is suggested. ?? For additional information please refer to http://education.Cubie/faq/ZHT97k5 (This link is being provided for informational/ educational purposes only.) ?? 07/13/2021 9:22 AM EST us Fela Grajeda MD HISTORICAL/NON ORDERABLE LA BS Final Result [facility] [address] from Last 3 Months or Most Recently Relevant to Health Maintenance Insurance [employer] Care Teams Med Care Manager Relationship Specialty Start Date End Date Fela Grajeda MD [address] [place] [phone] PCP - General Internal Medicine 07/11/18
--- OUTSIDE RECORDS SUMMARY | 2024-10-24 07:33 | XMS_ITS | Clinical Summary ---
Author Organization [facility] Address [address] [place] [address] Care Team Providers Care Box Blank Machine Operator Helper Name Role Phone Unknown, Primary Care Provider [...] age to complete this topic Care Teams Box Blank Machine Operator Helper Relationship Specialty Start Date End Date Unknown, PCP - General 09/09/21
== END 2024-10-24 07:31 | disposition home or self-care (01) ==
LOC: HO.MAMMO 07:30
PROVIDERS: Visit Provider Internal Medicine
DX: Z12.31 Encounter for screening mammogram for malignant neoplasm of breast (principal)
CPT/HCPCS: 77063; 77067

== ENCOUNTER → 2024-10-24 07:45 | Outpatient (BNV) | payer OTHER, SELFPAY | PROVIDERS: Visit Provider Internal Medicine | DX: Z12.31 Encounter for screening mammogram for malignant neoplasm of breast (principal) | CPT/HCPCS: 77063; 77067 ==

== ENCOUNTER 2025-01-29 09:01 | Outpatient (AMB) | payer OTHER, SELFPAY ==
--- NOTE | 2025-01-29 08:23 | A.OFFVIS_ITS ---
Vital Signs 01/29/25 09:33 Height 5 ft 1 in Weight 140 lb BMI 26.4 Intake Visit Reasons: FC- Displace fracture of triquetrum bone Intake Note: Kenna 59 yr old right hand dominant female presents today for a fracture care visit for her left fracture of triquetrum bone. States on January 12 she tripped and landed on her wrist. States she has soreness and did not seek medical advise. Then 2 weeks later she felt increase pain after pulling a pinic table. States she was seen at an urgent care where xrays were done and a fracture was confirmed. A spica brace was given. Patient reports she has no pain while weraing her brace but pain is worse when she removes it and tries to move her hand. She is having numbness in her middle, ring and small finger. Allergies No Known Allergies (No Known Allergies*) Allergy (Unverified 03/27/20 16:40) Amytryplines Allergy (Unknown, Uncoded 01/29/25 09:31) heart palpations Z-packs Allergy (Unknown, Uncoded 01/29/25 09:31) Hives HPI HPI FC- Displace fracture of triquetrum bone: Details: Kenna is a 59 year old right hand dominant woman who presents for a possible left triquetrum fracture, S/P all, DOI: 01/12/25. She did not seek medical attention at the time, and was seen in urgent care on 01/22/25 after increase pain from moving a table. She was placed in a splint & referred here. She complains of pain in her wrist primarily when her splint is removed, and with any motion. She denies any pain when her splint is on. She also complains of numbness in her middle, ring, and small fingers, symptoms intermittent, but daily, worse at night. She says this began on ~01/21/25 when dragging a picnic table She has a Hx of bilateral carpal tunnel releases done at an outside clinic several years ago. 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 Review of Systems Const All systems reviewed & are unremarkable except as noted in HPI and below Physical Exam Vital Signs: BMI result Body Mass Index 26.4 Const General: cooperative, healthy appearing and no acute distress Orientation/consciousness: patient oriented x3 HEENT Head: Yes normocephalic and Yes atraumatic Eyes EOM: EOMs intact bilaterally Resp Effort & Inspection: normal respiratory effort and able to speak in complete sentences Cardio Jugular venous distension: no JVD Skin General skin exam: turgor normal Rashes: no rashes Neuro General: patient oriented x3 Extrem Other: Evaluation of Left Upper Extremity: The patient is alert, oriented, and in no acute distress Neuro: Decreased subjective sensation dorsal ulnar aspect of the hand, extending to the small & ring fingers Normal sensation in the thumb & index fingers Normal sensation to the pads of all fingers Vascular: Cap refill brisk ROM: With encouragement She can make a fist and extend all her digits Good elbow ROM without pain Skin: No lacerations or abrasions or evidence of open fracture General: Resolving ecchymosis. Resolving swelling over the dorsal central aspect of her wrist No Erythema or evidence of infection. Most tender over the dorsal capitate Tender over the 4th metacarpal base Mild tenderness over the scaphoid tubercle No tenderness over the distal radius, DRUJ, or distal ulna DRUJ stable on exam No snuffbox tenderness No tenderness over the Triquetrum Radiographs: 3 views of the left wrist were taken and viewed by me today in clinic. They show no fractures or dislocations. 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 Left capitate contusion 2. Left 4th metacarpal contusion, S/P fall, DOI: 01/12/25 First seen for this at urgent care on 01/22/25 First seen here 01/29/25 3. Left hand numbness Primarily the dorsal aspect of the middle, ring, and small fingers Symptoms intermittent, but daily, worse at night S/P injury, DOI: ~01/21/25 Hx of left carpal tunnel release, done at an outside clinic I educated her about these conditions I discussed operative and non-operative treatment options No operative treatment indicated If she continues to have difficulty with numbness & tingling in the next 4-6 weeks, we may consider ordering a NCS She was fitted for a velcro wrist splint, to be worn for the next 4 weeks with daily activities. She will remove this at rest at home, and at night She will remove this splint when at rest to work on finger ROM exercises I discussed activity modifications, she is to lift nothing heavier than a cellphone for the next 4 weeks. She is to limit or avoid any heavy impact activities or falls for the next 4 weeks. She will follow up prn Scribed for Shira King MD by Riaz Arriaga, medical office secretary, on 01/29/25 at 9:55 AM, EST. Coding Level of Care Code New Pt Level 4 (21089) Diagnoses Contusion of multiple sites of left hand and wrist S60.222A; S60.212A Numbness and tingling in left hand R20.0; R20.2
--- OUTSIDE RECORDS SUMMARY | 2025-01-29 09:31 | XMS_ITS | Data Portability ---
Author Organization [place] - [facility], Allergy Address [address] [address] Care Team Providers Care Appointment Clerk Name Role Phone INDU ROPER Referring Provider [...] INTERNAL AUDITORY CANAL, W/WO CONTRAST 2024 025 [facility] [address] [place], [address], 13:51:40 CT, sinuses, w/o contrast 2024 025 [place] [facility] [place], [address], [address], 22:36:09 Medication Orders ofloxacin 0.3 % ear drops 2024 025 [facility][id number], [address] [place], [address], 10:14:11 gabapentin 300 mg capsule 2024 025 [facility][id number], [address] [place], [address], 10:16:39 Patient TargetsNo targets recorded. Patient InstructionsNo instructions recorded. Reason for Referral None Reported. Results Created Date Observation Date Name Description Value Unit Range Abnormal Flag Note LastModifiedBy Organization Detail LastModifiedTime 08/04/1908/02/2024 CT, sinus es, w/o contr ast No observ ation record ed. [email or web address] [facility] [place] [address], [address], 08/08/2024 12:48:39 08/04/1908/02/2024 CT, sinus es, w/o contr ast No observ ation record ed. [place] [facility] [place] [address], [address], 08/08/2024 12:47:16 08/16/1908/15/2024 MRI, brain + brain stem, w/wo contr ast [facility] Access ion Number : [id number] Name: Guzman , Kathry n Medica l Record Number : [id number] Date of : 1965 Date of Exam: 2024 Referr ing Physic paris: [facility]esar [facility] [address], [place] [address] [place] [address] Exam: MR Brain (C-/C+ ) CPT 90860 Room Descri ption: [place] [facility] 3.0T INDICA TION: Left ear tinnit us TECHNI QUE: Multip lanar multis equenc e MRI of the brain using an IAC protoc ol was perfor med before and after the admini strati on of 10 mL of Dotare m. COMPAR GINI: No prior FINDIN GS: The bilate ral manager of internal audit al audito ry canals are normal in [...] al enhanc ement in the bilate ral manager of internal audit al audito ry canals . The visual ized brain is unrema rkable . The visual ized ventri cles and sulci normal . The midlin e the struct ures, main vascul ar flow voids, and basal cister ns are normal . There is fluid in inferi or left mastoi d air cells. IMPRES CIERRA: Unrema rkable bilate ral manager of internal audit al audito ry canals . Small left mastoi d effusi on. Electr onical ly Signed By: Nicolasa TREVINO [facility]) [address], [place], [address], 08/20/2024 12:58:05 08/20/19 25 audio gram No observ ation record ed. BARCODE Not Available 2024 15:37:28 Result Notes Documentation Provider Name and Address Organization Details Recorded Time Mri, Brain + Brain Stem, W/wo Contrast : [facility] Accession Number: [id number] Patient Name: Kenna Guzman Date of : 1965 Date of Exam: 08-15-2024 Referring Physician: Cesar Mishra [facility] [address] [address] Exam: MR Brain (C-/C+) CPT 66238 Room Description: [facility] 3.0T INDICATION: Left ear tinnitus TECHNIQUE: Multiplanar multisequence MRI of the brain using an IAC protocol was performed before and after the administration of 10 mL of Dotarem. COMPARISON: No prior FINDINGS: The bilateral internal auditory canals are normal in size. The bilateral cranial nerves VII and VIII complexes are symmetric. There is normal T2 signal in the bilateral cochlea and semicircular canals. The cisternal segments of the bilateral trigeminal nerves are normal. Bilateral Meckel caves are normal. The cerebellopontine angle cisterns are patent. There is no evidence of mass or abnormal enhancement in the bilateral internal auditory canals. The visualized brain is unremarkable. The visualized ventricles and sulci normal. The midline the structures, main vascular flow voids, and basal cisterns are normal. There is fluid in inferior left mastoid air cells. IMPRESSION: Unremarkable bilateral internal auditory canals. Small left mastoid effusion. Electronically Signed By: Nicolasa MISHRA MD [address] [place] [address], [phone], [facility] 08/20/2024 12:52:57 Problems Name Problem SNOMED Code Status Onset Date Resolution Date Notes Provider Name and Address Organization Details Recorded Time Atypical facial pain 24224909 Active 2024 CESAR MISHRA MD [address] [place] [address], [address], [facility] - [facility] 5 14:05:05 Sensorineur al hearing loss of bilateral ears 056107976 Active 2024 ETHEL MURRAY [address] [place] [address], [address], [facility] - [facility] 5 10:49:21 Tinnitus of left ear 0564067014983 Active 2024 CESAR MISHRA MD [address] [place], [place] [address], [place], [address], [facility] - [facility] [place] 5 11:16:45 Chronic rhinitis 25098746 Active 2024 CESAR MISHRA MD [address] [facility], [address] [facility], [place], [address], [facility] - [facility] [place] 5 11:17:09 Non-allergi c rhinitis 304204174265 Active 2024 CESAR MISHRA MD [address] [facility], [facility], [place], [address], [facility] - [facility] [place] 5 11:17:20 Allergic rhinitis 96564547 Active 2024 CESAR MISHRA MD [address] [facility], [address] [facility], [place], [address], [facility] - [facility] [place] 5 11:17:20 Seasonal allergic rhinitis 225235676 Active 2024 CESAR MISHRA MD [address] [facility], [facility], [place], [address], [facility] - [facility] 5 11:17:20 Disorder of left Eustachian tube 8116474020266 109 Active 2024 CESAR MISHRA MD [address] [facility], [facility], [place], [address], [facility] [place] 5 16:05:15 Problem Notes None recorded. Procedures Surgical History Date Name Laterality Status Provider Name and Address Organization Details Recorded Time 08/30/19 25 Myringotomy with Aspiration left completed CESAR MISHRA MD [address] [facility],[place] [address], [place], [address], [facility] 09/02/2024 17:24:11 08/10/19 25 Comp Audio with Tymps - 68556 & 80522 completed ETHEL MURRAY [address] [facility],[place] [address], [place], [address], [facility] - [facility] 08/10/2024 10:48:45 07/27/19 25 JMSNasal/Sinus Endoscopy completed CESAR MISHRA MD [address] [facility],[address], [address], [facility] 07/27/2024 14:04:54 hysterectomy completed CESAR MISHRA MD [address] [facility],[address], [address], [facility] 07/27/2024 13:31:56 Imaging Results None recorded. Procedure Notes None recorded. Medical Equipment None Reported. Allergies Allergen ID Allergen Name Allergen Category Reaction Reaction Severity Criticality Documentation Date Start Date Code Code System Note Provider Name and Address Organization Details Recorded Time 199623 azithromy segun medicatio n Not available Not available Not available 07/27/2024 23688 RxNorm Jenny Potvin [place] - [facility] 13:23:14 754031 amitripty line medicatio n Not available Not available Not available 07/27/2024 704 RxNorm Jenny Potvin null, [facility] 13:23:23 778607 clindamyc in Not available Not available Not available Not available 07/27/2024 2582 RxNorm Jenny Potvin null, [facility] 13:23:39 971931 prednison e medicatio n Not available Not available Not available 07/27/2024 8640 RxNorm Jenny Potvin null, [facility] 13:23:49 353467 rofecoxib medicatio n Not available Not available Not available 07/27/2024 54898 8 RxNorm Jenny Potvin null, [facility] 5 13:24:01 934438 Medicinal product containin g macrolide and acting as antibacte rial agent (product) medicatio n Not available Not available Not available 07/27/2024 88257 8007 SNOMED Jenny Potvin null, [place] - [facility] 5 13:24:13 264802 erythromy segun medicatio n Not available Not available Not available 07/27/2024 4053 RxNorm Jenny Carter [place] - [facility] [place] 5 13:24:35 198717 nortripty line medicatio n Not available Not available Not available 07/27/2024 7531 RxNorm Jenny [place], [place] - [facility] 13:24:44 056785 hydralazi ne medicatio n Not available Not available Not available 07/27/2024 5470 RxNorm Jenny Raul null, [place] [facility] 5 13:24:53 196822 hydrochlo rothiazid e medicatio n Not available Not available Not available 07/27/2024 5487 RxNorm Jenny [place], [place] [facility] 13:25:10 679423 fluconazo le medicatio n Not available Not available Not available 07/27/2024 4450 RxNorm Jenny Carter [place] [facility] 13:25:22 Medications Name Sig Start Date Stop [...] Updated DateTime 07/27/2024 154.94 cm 26.5 kg/m2 67827.93 g Jenny Carter [place] - [facility] 07/27/2024 13:20:28 Date Recorded Body height Body mass index (BMI) Body weight Provider Name and Address Organization Details Last Updated DateTime 08/10/2024 154.94 cm 26.3 kg/m2 18835.34 g Jenny Carter [place] [facility] 08/10/2024 10:16:23 Date Recorded Body height Body mass index (BMI) Body weight Provider Name and Address Organization Details Last Updated DateTime 08/30/2024 154.94 cm 26.6 kg/m2 43631.52 g Jenny Carter [place] [facility] 08/30/2024 15:50:20 Date Recorded Body height Body mass index (BMI) Body weight Provider Name and Address Organization Details Last Updated DateTime 09/28/2024 154.94 cm 26.6 kg/m2 86332.52 g Jenny Carter [place] [facility] 09/28/2024 10:14:01 Social History Question Answer Notes LastModified by Organizat ion Details LastModified Time Tobacco Smoking Status Former Smoker CESAR MISHRA MD [address] [place] [address], [address], [facility] - [facility] 07/27/2024 13:31:44 When Did You Quit Smoking? [...] SNOMED-CT Code Diagnosis ICD10 Code Diagnosis Note [id number] CESAR MISHRA MD [facility] [address] [address] 07/27/2024 13:16:55 07/27/2024 14:09:51 Atypical facial pain 59120359 G50.1 No evidence of bacterial infection on [...] s, but agrees to try gabapentin again. [id number] CESAR MISHRA MD [facility] [address] [address] 08/10/2024 10:10:09 08/10/2024 13:04:08 Sensorineural hearing loss of bilateral ears 040984453 H90.3 Audiologic al evaluation results: Right ear: Essentiall y normal hearing with the exception of a moderately -severe SNHL at 8000Hz with excellent word recognitio n. Left ear: Essentiall y normal sloping to moderately severe sensorineu ral hearing loss with excellent word recognitio n. Tympanomet ry: Right Ear:Type Ad Left Ear:Type A Tinnitus of left ear 968 9571446 106 H93.12 Chronic rhinitis 8650516 6 J31.0 [id number] CESAR MISHRA MD [facility] [address] [address] 08/30/2024 15:44:37 08/30/2024 16:11:56 Disorder of left Eustachian tube 0118076412 638574 H69.92 59-year-ol d female with left-sided head [...] does, we can proceed with tube placement. [id number] CESAR MISHRA MD [facility] [address] [address] 09/28/2024 09:50:16 09/28/2024 10:28:10 Disorder of left Eustachian tube 5140473406 642679 H69.92 Symptoms are markedly improved after myringotom [...] Recorded Advance Directives Directive None Recorded Payers Insurance Date Sequence Insurance Name Policy Number Policy Ross Covered Member ID Ross Member ID Guarantor Name 11/16/2024 1 LOLI [id number] Kenna Guzman [id number] Kennadon Guzman Notes Date Note Type Note Provider Name and Address Organization Details Recorded Time 5 text/html 59 yo F with acute sinus symptoms. started itching in the earheadachestinnitus on the left Had XR at [place] which looked normal left extending to ear cough betterno meds now a couple abx but did not help augmentin and then a second with steroidoriginally infected tooth, now a new root canal mandibular usually 3-4 sinus infections per year here 10 years ago (Kenna Nielsen chart [id number]) CT negativeBeer and mold positive for allergy testing , has been on flonase prednisone allergynortriptyline allergygabapentin did not seem to help in past has been on sudafed and mucinex CESAR MISHRA MD [address] [place] [address],[address], [address], [facility] 08/08/2024 12:44:27 5 text/html No improvement in symptoms. She is very distressed by her symptoms. PV: 59 yo F with acute sinus symptoms. started itching in the earheadachestinnitus on the left Had XR at [place] which looked normal left extending to ear cough betterno meds now a couple abx but did not help augmentin and then a second with steroidoriginally infected tooth, now a new root canal mandibular usually 3-4 sinus infections per year here 10 years ago (Kenna Nielsen chart [id number]) CT negativeBeer and mold positive for allergy testing , has been on flonase prednisone allergynortriptyline allergygabapentin did not seem to help in past has been on sudafed and mucinex CESAR MISHRA MD [address] [place] [address],[address], [address], [place] - [facility] 08/14/2024 08:32:26 5 text/html 59-year-old female presents today for follow-up. Her MRI did not show any concerning findings, but did show some fluid in a few of the left sided air cells. CESAR MISHRA MD [address] [facility],[place] [address], [place], [address], [facility] - [facility] 09/02/2024 17:25:28 5 text/html Dizziness is gone, pressure 80% better.Second drops made a difference in the ear almost immediately. CESAR MISHRA MD [address] [facility],[place] [address], [place], [address], [facility] - [facility] 09/28/2024 10:29:29 OBGyn Episode No OBEpisode recorded.
--- OUTSIDE RECORDS SUMMARY | 2025-01-29 09:31 | XMS_ITS | Encounter Summary ---
Author Organization [facility] Address [address] [place] [address] [address] [place] [address] Care Team Providers Care Gunstock Spray Unit Feeder Name Role Phone Fela Grajeda MD Primary Care Provider [phone] Encounter Details Date Type Department Care Team ([facility] st Contact Info) Description 10/16/2024 Orders Only [facility] [address] [place] [address] Fela Grajeda MD [address] [place] [address] Macrocytosis (Primary Dx) Social History Tobacco Use [...] Expires: 10/16/2025 documented as of this encounter Procedures Procedure Name Priority Date/Time Associated Diagnosis Comments BI MAMMOGRAM SCREENING TOMOSYNTHESIS BILATERAL Routine 10/24/2024 7:45 AM EDT documented in this encounter Results * BI Mammogram Screening Tomosynthesis Bilateral (10/24/2024 7:45 AM EDT) Anatomical Region Laterality Modality Breast Bilateral Mammography 10/24/2024 7:45 AM EDT Narrative 11/03/2024 11:24 AM EDT [facility] [address] [place] [address] Mammography Report Signed Patient: Kenna Guzman MR#: [id number] 36 : 1965 Acct:[id number] Age/Sex: 59 / F ADM Date: 10/24/24 Loc: MAMMO Attending Dr: Fela Grajeda MD Ordering Physician: Fela Grajeda MD Results: 1 Negative Date of Service: 10/24/24 Follow Up: 1 Year From Orig ina Mammogram Procedure(s): MM tomosynthesis screening BI Accession Number(s): [id number] cc: Fela Grajeda MD EXAMINATION: MM SCREENING DIGITAL BREAST TOMOSYNTHESIS, BILATERAL CLINICAL INFORMATION: Screening. Asymptomatic. COMPARISON: Mammography: Comparison is made with available priors TECHNIQUE: Digital breast mammography with tomosynthesis is performed in both the craniocaudal and mediolateral oblique views along with computer-aided detection (CAD). FINDINGS: There are scattered areas of fibroglandular [...] target due date for their next mammogram. Electronically signed by: Lynn Casillas DO 11/03/2024 11:21 AM EDT Dictated By: Lynn Casillas DO Signed By: <Electronically signed by Lynn Casillas DO in OV> 11/03/24 1121 DD/ 0745 TD/TT: 10/24/24 0755 Sas Statistical Programmer: Procedure Note Donotuseinterpreter, Image - 11/03/2024 [facility] [address] [place], [place] [address] Mammography Report Signed Patient: Kenna GuzmanMR#: [id number] 36 : 1965Acct:[id number] Age/Sex: 59 / FADM Date: 10/24/24 Loc: MAMMO Attending Dr: Fela Grajeda MD Ordering Physician: Fela Grajeda MDResults: 1 Negative Date of Service: 10/24/24Follow Up: 1 Year From Orig inal Mammogram Procedure(s): MM tomosynthesis screening BI Accession Number(s): [id number] cc: Fela Grajeda MD EXAMINATION: MM SCREENING DIGITAL BREAST TOMOSYNTHESIS, BILATERAL CLINICAL INFORMATION: Screening. Asymptomatic. COMPARISON: Mammography: Comparison is made with available priors TECHNIQUE: Digital breast mammography with tomosynthesis is performed in both the craniocaudal and mediolateral oblique views along with computer-aided detection (CAD). FINDINGS: There are scattered areas of fibroglandular [...] target due date for their next mammogram. Electronically signed by: Lynn Casillas DO 11/03/2024 11:21 AM EDT RP Dictated By: Lynn Casillas DO Signed By: <Electronically signed by Lynn Casillas DO in OV> 11/03/24 1121 DD/ 0745 TD/TT: 10/24/24 0755 Sas Statistical Programmer: Fela Grajeda MD IMG BI PROCEDURES Edited Re sult - Final documented in this encounter Visit Diagnoses Diagnosis Macrocytosis- Primary Other specified diseases of blood and blood-forming organs documented in this encounter Additional Health Concerns Assessment Noted Time PHQ-9 Depression Total Score: 7 10/16/19 25 9:53 AM EDT documented as of this encounter Care Teams Gunstock Spray Unit Feeder Relationship Specialty Start Date End Date Fela Grajeda MD [address] [place] [address] PCP - General Internal Medicine 07/11/18 documented as of this encounter
--- OUTSIDE RECORDS SUMMARY | 2025-01-29 09:31 | XMS_ITS | Clinical Summary ---
Author Organization [facility] Address [address] [place] [address] Care Team Providers Care Activity Assistant Name Role Phone Unknown, Primary Care Provider [...] - - Pulse - - Temperature 36.4 C (97.5 F) 09/03/2021 2:58 PM EST Respiratory Rate - - Oxygen Saturation - [...] (1 of 2) 2015 Influenza Vaccine (#1) 2025 Pneumococcal Vaccine Aged Out No long er eligible based on patient's age to complete this topic RSV Ped < 20 months Aged Out No longe r eligible based on patient's age to complete this topic Care Teams Activity Assistant Relationship Specialty Start Date End Date Unknown, PCP - General 09/09/21
--- OUTSIDE RECORDS SUMMARY | 2025-01-29 09:31 | XMS_ITS | Clinical Summary ---
Author Organization [facility] Address [address] [place] [address] Care Team Providers Care Feather Duster Winder Name Role Phone Unavailable Primary Care Provider Unavailabl e Surgical History Surgery Date Site/Laterality Comments HYSTERECTOMY PROCEDURE: HISTORICAL HYSTERECTOMY Medical History Medical History Date Comments Pure hypercholesterolemia 12/21/2006 DX:Pur e hypercholesterolemia Unspecified asthma(493.90) 12/29/2006 DX:Un specified asthma(493.90) Family History Relation Name Status Comments Aunt OK Father Alive CVA Mother Alive High cholestero l Sister Alive Uncle 1 OK Uncle 2 OK Uncle 3 OK Social History Tobacco Use Types Packs/Day Years [...] 2) 2015 Colorectal Cancer Screening: Colonoscopy 06/13/2022 HIV Screening 06/13/2022 Hepatitis C Screening 06/13/2022 Social Influencers of Health Screening 06/13/2022 COVID-19 Vaccine ( - 2023-2 5 season) 2024 Depression Screening 07/11/2024 Influenza Vaccine (#1) 2025 9, 04/21/2018 RSV Immunization Adult Patients (1 - [...]
[2025-01-29 09:33] VITALS: BMI 26.4
== END 2025-01-29 10:13 | disposition home or self-care (01) ==
PROVIDERS: Visit Provider Orthopaedic Surgery
DX: S60.222A Contusion of left hand, initial encounter (principal); S60.212A Contusion of left wrist, initial encounter; R20.0 Anesthesia of skin; R20.2 Paresthesia of skin
CPT/HCPCS: 99204

== ENCOUNTER → 2025-01-29 09:05 | Outpatient (BNV) | payer OTHER, SELFPAY | PROVIDERS: Visit Provider Radiology Diagnostic Radiology | DX: M19.032 Primary osteoarthritis, left wrist (principal) | CPT/HCPCS: 73110 ==

== ENCOUNTER 2025-01-29 10:04 | Outpatient (REF) | payer OTHER, SELFPAY ==
--- NOTE | ~2025-01-29 | XR_ITS ---
EXAMINATION: XR WRIST, LEFT CLINICAL INFORMATION: M25.531 - Pain in left wrist COMPARISON: January 22, 2025. TECHNIQUE: PA, lateral, and oblique views of the left wrist. FINDINGS: The carpal bones are intact. The alignment is well maintained. Distal radius and ulna are intact. Degenerative changes. No lytic or blastic lesions. XR/XR wrist LT min 3V IMPRESSION: Osteoarthrosis without acute fracture or dislocation. Electronically signed by: Al Clifford MD 01/29/2025 09:58 AM EDT
--- OUTSIDE RECORDS SUMMARY | 2025-01-30 10:54 | XMS_ITS | Clinical Summary ---
Author Organization [facility] Address [address] [place] [address] Care Team Providers Care Food And Beverage Operations Manager Name Role Phone Unavailable Primary Care Provider Unavailabl e Surgical History Surgery Date Site/Laterality Comments HYSTERECTOMY PROCEDURE: HISTORICAL HYSTERECTOMY Medical History Medical History Date Comments Pure hypercholesterolemia 12/21/2006 DX:Pur e hypercholesterolemia Unspecified asthma(493.90) 12/29/2006 DX:Un specified asthma(493.90) Family History Relation Name Status Comments Aunt [place] Father Alive CVA Mother Alive High cholestero l Sister Alive Uncle 1 NH Uncle 2 NH Uncle 3 NH Social History Tobacco Use Types Packs/Day Years [...]
--- OUTSIDE RECORDS SUMMARY | 2025-01-30 10:54 | XMS_ITS | Encounter Summary ---
Author Organization [employer] Address [address] [place] [address] 7 [place] [address] Care Team Providers Care Wood Cabinetmaker Name Role Phone Fela Grajeda MD Primary Care Provider [phone] Encounter Details Date Type Department Care Team ([facility] st Contact Info) Description 10/16/2024 Orders Only [facility] [address] [place] [address] Fela Grajeda MD [address] [place] [address] Macrocytosis (Primary Dx) Social History Tobacco Use [...] EDT Narrative 11/03/2024 11:24 AM EDT [place] [facility]'s [address] [place] [address] Mammography Report Signed Patient: Kenna Guzman MR#: [id number] 36 : 1965 Acct:[id number] Age/Sex: 59 / F ADM Date: 10/24/24 Loc: MAMMO Attending Dr: Fela Grajeda MD Ordering Physician: Fela Grajeda MD Results: 1 Negative Date of Service: 10/24/24 Follow Up: 1 Year From Orig ina Mammogram Procedure(s): MM tomosynthesis screening BI Accession Number(s): [id number] cc: Fela Grajeda MD EXAMINATION: MM SCREENING [...] 11/03/2024 11:21 AM EDT Dictated By: Lynn Casillsa DO Signed By: <Electronically signed by Lynn Casillas DO in OV> 11/03/24 1121 DD/ 0745 TD/TT: 10/24/24 0755 Industrial Relations Counselor: Procedure Note Donotuseinterpreter, Image - 11/03/[facility]24 [facility] [address] [place], [place] [address] Mammography Report Signed Patient: Kenna GuzmanMR#: [id number] 36 : 1965Acct:[id number] Age/Sex: 59 / FADM Date: 10/24/24 Loc: MAMMO Attending Dr: Fela Grajeda MD Ordering Physician: Fela Grajeda MDResults: 1 Negative Date of Service: 10/24/24Follow Up: 1 Year From Orig inal Mammogram Procedure(s): MM tomosynthesis screening BI Accession Number(s): [id number] cc: Fela Grajeda MD EXAMINATION: MM SCREENING [...] 11/03/24 1121 DD/ 0745 TD/TT: 10/24/24 0755 Industrial Relations Counselor: Fela Grajeda MD IMG BI PROCEDURES Edited Re sult - Final documented in this encounter Visit Diagnoses Diagnosis Macrocytosis- Primary Other specified diseases of blood and blood-forming organs documented in this encounter Additional Health Concerns Assessment Noted Time PHQ-9 Depression Total Score: 7 10/16/19 25 9:53 AM EDT documented as of this encounter Care Teams Wood Cabinetmaker Relationship Specialty Start Date End Date Fela Grajeda MD [address] [place] [address] PCP - General Internal Medicine 07/11/18 documented as of this encounter
--- OUTSIDE RECORDS SUMMARY | 2025-01-30 10:55 | XMS_ITS | Clinical Summary ---
Author Organization [facility] Address [address] [place] [address] Care Team Providers Care Chenille Machine Operator Name Role Phone Unknown, Primary Care Provider [...] age to complete this topic Care Teams Chenille Machine Operator Relationship Specialty Start Date End Date Unknown, PCP - General 09/09/21
--- OUTSIDE RECORDS SUMMARY | 2025-01-30 10:55 | XMS_ITS | Data Portability ---
Author Organization [place] [facility], Allergy Address [address] [address] Care Team Providers Care Corporate Intern Name Role Phone INDU ROPER Referring Provider [...] INTERNAL AUDITORY CANAL, W/WO CONTRAST [address] [facility] [address] [place], [address], 13:51:40 CT, sinuses, w/o contrast 2024 025 [place] [facility] [place], [address], [address], 22:36:09 Medication Orders ofloxacin 0.3 % ear drops 2024 025 [id number], [address] [place], [address], 10:14:11 gabapentin 300 mg capsule 2024 025 [facility][id number], [address] [place], [address], 10:16:39 Patient TargetsNo targets recorded. Patient InstructionsNo instructions recorded. Reason for Referral None Reported. Results Created Date Observation Date Name Description Value Unit Range Abnormal Flag Note LastModifiedBy Organization Detail LastModifiedTime 08/04/1908/02/2024 CT, sinus es, w/o contr ast No observ ation record ed. [email or web address] [facility] [place] [address], [address], 08/08/2024 12:48:39 08/04/1908/02/2024 CT, sinus es, w/o contr ast No observ ation record ed. [place] [facility] [place] [address], [address], 08/08/2024 12:47:16 08/16/1908/15/2024 MRI, brain + brain stem, w/wo contr ast [facility] Access ion Number : [id number] holly Name: Guzman , Kathry n Medica l Record Number : [id number] Date of : 1965 Date of Exam: 2024 Referr ing Physic paris: [facility] [address], [place] [address] [place] [address] Exam: MR Brain (C-/C+ ) CPT 86438 Room Descri ption: [place] Siem Verio 3.0T INDICA TION: Left ear tinnit us TECHNI QUE: Multip lanar multis equenc e MRI of the brain using an IAC protoc ol was perfor med before and after the admini strati on of 10 mL of Dotare m. COMPAR GINI: No prior FINDIN GS: The bilate ral intern architect al audito ry canals are normal in [...] al enhanc ement in the bilate ral intern architect al audito ry canals . The visual ized brain is unrema rkable . The visual ized ventri cles and sulci normal . The midlin e the struct ures, main vascul ar flow voids, and basal cister ns are normal . There is fluid in inferi or left mastoi d air cells. IMPRES CIERRA: Unrema rkable bilate ral intern architect al audito ry canals . Small left mastoi d effusi on. Electr onical ly Signed By: Nicolasa TREVINO [facility] [address], [place], [address], 08/20/2024 12:58:05 08/20/19 25 audio gram No observ ation record ed. BARCODE Not Available 2024 15:37:28 Result Notes Documentation Provider Name and Address Organization Details Recorded Time Mri, Brain + Brain Stem, W/wo Contrast : [facility] Accession Number: [id number] Patient Name: Kenna Guzman Date of : 1965 Date of Exam: 08-15-2024 Referring Physician: Cesar Mishra [facility] [address] [address] Exam: MR Brain (C-/C+) CPT 82062 Room Description: [facility] 3.0T INDICATION: Left ear tinnitus TECHNIQUE: Multiplanar [...] effusion. Electronically Signed By: Nicolasa MISHRA MD [address] [place] [address], [phone], [facility] 08/20/2024 12:52:57 Problems Name Problem SNOMED Code Status Onset Date Resolution Date Notes Provider Name and Address Organization Details Recorded Time Atypical facial pain 96968394 Active 2024 CESAR MISHRA MD [address] [place] [address], [address], [facility] - [facility] 5 14:05:05 Sensorineur al hearing loss of bilateral ears 347805607 Active 2024 ETHEL MURRAY [address] [place] [address], [address], [facility] - [facility] 5 10:49:21 Tinnitus of left ear 1390079198762 Active 2024 CESAR MISHRA MD [address] [place], [place] [address], [place], [address], [facility] - [facility] [place] 5 11:16:45 Chronic rhinitis 72829015 Active 2024 CESAR MISHRA MD 100 [facility], [facility], [place] [place], [address], [facility] - [facility] [place] 5 11:17:09 Non-allergi c rhinitis 679599659499 Active 2024 CESAR MISHRA MD 100 [facility], [facility], [place], [address], [facility] - [facility] [place] 5 11:17:20 Allergic rhinitis 26061310 Active 2024 CESAR MISHRA MD 100 [facility], [facility], [place], [address], [facility] - [facility] [place] 5 11:17:20 Seasonal allergic rhinitis 065480614 Active 2024 CESAR MISHRA MD [address] [facility], [facility], [place], [address], [facility] - [facility] 5 11:17:20 Disorder of left Eustachian tube 8429335388385 109 Active 2024 CESAR MISHRA MD 100 [facility], [facility], [place], [address], [facility] [place] 5 16:05:15 Problem Notes None recorded. Procedures Surgical History Date Name Laterality Status Provider Name and Address Organization Details Recorded Time 08/30/19 25 Myringotomy with Aspiration left completed CESAR MISHRA MD 100 [facility],[place] [address], [place], [address], [facility] 09/02/2024 17:24:11 08/10/19 25 Comp Audio with Tymps - 12918 & 90868 completed ETHEL MURRAY [address] [facility],[place] [address], [place], [address], [facility] - [facility] 08/10/2024 10:48:45 07/27/19 25 JMSNasal/Sinus Endoscopy completed CESAR MISHRA MD 100 [facility],[address], [address], [facility] 07/27/2024 14:04:54 hysterectomy completed CESAR MISHRA MD 100 [facility],[address], [address], [facility] 07/27/2024 13:31:56 Imaging Results None recorded. Procedure Notes None recorded. Medical Equipment None Reported. Allergies Allergen ID Allergen Name Allergen Category Reaction Reaction Severity Criticality Documentation Date Start Date Code Code System Note Provider Name and Address Organization Details Recorded Time 499036 azithromy segun medicatio n Not available Not available Not available 07/27/2024 75892 RxNorm Jenny Potvin [place], [place] [facility] 13:23:14 107666 amitripty line medicatio n Not available Not available Not available 07/27/2024 704 RxNorm Jenny Potvin null, [facility] 13:23:23 977250 clindamyc in Not available Not available Not available Not available 07/27/2024 2582 RxNorm Jenny Potvin null, [facility] 13:23:39 983226 prednison e medicatio n Not available Not available Not available 07/27/2024 8640 RxNorm Jenny Potvin null, [facility] 13:23:49 173903 rofecoxib medicatio n Not available Not available Not available 07/27/2024 28413 8 RxNorm Jenny Potvin null, [facility] 5 13:24:01 839154 Medicinal product containin g macrolide and acting as antibacte rial agent (product) medicatio n Not available Not available Not available 07/27/2024 36438 8007 SNOMED Jenny Potvin null, [place] [facility] 5 13:24:13 116751 erythromy segun medicatio n Not available Not available Not available 07/27/2024 4053 RxNorm Jenny Carter [place], [place] [facility] [place] 5 13:24:35 371732 nortripty line medicatio n Not available Not available Not available 07/27/2024 7531 RxNorm Jenny wat[place], [place] [facility] 13:24:44 558586 hydralazi ne medicatio n Not available Not available Not available 07/27/2024 5470 RxNorm Jenny Raul null, [place] [facility] 5 13:24:53 515012 hydrochlo rothiazid e medicatio n Not available Not available Not available 07/27/2024 5487 RxNorm Jenny [place], [place] [facility] 13:25:10 282402 fluconazo le medicatio n Not available Not available Not available 07/27/2024 4450 RxNorm Jenny Carter [place], [place] [facility] 13:25:22 Medications Name Sig Start Date Stop [...] Updated DateTime 07/27/2024 154.94 cm 26.5 kg/m2 75845.93 g Jenny Carter [place] - [facility] 07/27/2024 13:20:28 Date Recorded Body height Body mass index (BMI) Body weight Provider Name and Address Organization Details Last Updated DateTime 08/10/2024 154.94 cm 26.3 kg/m2 46499.34 g Jenny Carter [place] [facility] 08/10/2024 10:16:23 Date Recorded Body height Body mass index (BMI) Body weight Provider Name and Address Organization Details Last Updated DateTime 08/30/2024 154.94 cm 26.6 kg/m2 87847.52 g Jenny Carter [place] [facility] 08/30/2024 15:50:20 Date Recorded Body height Body mass index (BMI) Body weight Provider Name and Address Organization Details Last Updated DateTime 09/28/2024 154.94 cm 26.6 kg/m2 38773.52 g Jenny Carter [place] [facility] 09/28/2024 10:14:01 Social History Question Answer Notes LastModified by Organizat ion Details LastModified Time Tobacco Smoking Status Former Smoker CESAR MISHRA MD [address] [place] [address], [address], [facility] - [facility] 07/27/2024 13:31:44 When Did You Quit Smoking? [...] SNOMED-CT Code Diagnosis ICD10 Code Diagnosis Note [id number] CESAR MISHRA MD [facility] [address] [address] 07/27/2024 13:16:55 07/27/2024 14:09:51 Atypical facial pain 83119959 G50.1 No evidence of bacterial infection on [...] s, but agrees to try gabapentin again. [id number] CESAR MISHRA MD [facility] [address] [address] 08/10/2024 10:10:09 08/10/2024 13:04:08 Sensorineural hearing loss of bilateral ears 524522432 H90.3 Audiologic al evaluation results: Right ear: Essentiall y normal hearing with the exception of a moderately -severe SNHL at 8000Hz with excellent word recognitio n. Left ear: Essentiall y normal sloping to moderately severe sensorineu ral hearing loss with excellent word recognitio n. Tympanomet ry: Right Ear:Type Ad Left Ear:Type A Tinnitus of left ear 012 5741604 106 H93.12 Chronic rhinitis 2991981 6 J31.0 [id number] CESAR MISHRA MD [facility] [address] [address] 08/30/2024 15:44:37 08/30/2024 16:11:56 Disorder of left Eustachian tube 4035449955 056514 H69.92 59-year-ol d female with left-sided head [...] does, we can proceed with tube placement. [id number] CESAR MISHRA MD [facility] [address] [address] 09/28/2024 09:50:16 09/28/2024 10:28:10 Disorder of left Eustachian tube 6151522332 239895 H69.92 Symptoms are markedly improved after myringotom [...] Member ID Guarantor Name 11/16/2024 1 [id number] Kenna Guzman [id number] 1 Kennadon Guzman Notes Date Note Type Note Provider Name and Address Organization Details Recorded Time 5 text/html 59 yo F with acute sinus symptoms. started itching in the earheadachestinnitus on the left Had XR at [facility] which looked normal left extending to ear cough betterno meds now a couple abx but did not help augmentin and then a second with steroidoriginally infected tooth, now a new root canal mandibular usually 3-4 sinus infections per year here 10 years ago (Kenna Nielsen chart 692176) CT negativeBeer and mold positive for allergy testing , has been on flonase prednisone allergynortriptyline allergygabapentin did not seem to help in past has been on sudafed and mucinex CESAR MISHRA MD [address] [place] [address],[address], [address], [facility] 08/08/2024 12:44:27 5 text/html No improvement in symptoms. She is very distressed by her symptoms. PV: 59 yo F with acute sinus symptoms. started itching in the earheadachestinnitus on the left Had XR at [facility] which looked normal left extending to ear cough betterno meds now a couple abx but did not help augmentin and then a second with steroidoriginally infected tooth, now a new root canal mandibular usually 3-4 sinus infections per year here 10 years ago (Kenna Nielsen chart 059704) CT negativeBeer and mold positive for allergy testing , has been on flonase prednisone allergynortriptyline allergygabapentin did not seem to help in past has been on sudafed and mucinex CESAR MISHRA MD [address] [place] [address],[address], [address], [place] [facility] 08/14/2024 08:32:26 5 text/html 59-year-old female presents today for follow-up. Her MRI did not show any concerning findings, but did show some fluid in a few of the left sided air cells. CESAR MISHRA MD 100 [facility],[place] [address], [place], [address], [facility] - [facility] 09/02/2024 17:25:28 5 text/html Dizziness is gone, pressure 80% better.Second drops made a difference in the ear almost immediately. CESAR MISHRA MD [address] [facility],[place] [address], [place], [address], [facility] - [facility] 09/28/2024 10:29:29 OBGyn Episode No OBEpisode recorded.
== END 2025-01-29 10:05 | disposition home or self-care (01) ==
LOC: HO.HOSX 10:04
PROVIDERS: Visit Provider Orthopaedic Surgery
DX: S60.212D Contusion of left wrist, subsequent encounter (principal); S60.222D Contusion of left hand, subsequent encounter; M25.532 Pain in left wrist; R20.2 Paresthesia of skin; R20.0 Anesthesia of skin; W01.0XXD Fall on same level from slipping, tripping and stumbling without subsequent striking against object, subsequent encounter; Z98.890 Other specified postprocedural states; M25.531 Pain in right wrist
CPT/HCPCS: 73110

== ENCOUNTER 2025-02-27 08:48 | Outpatient (REF) | payer OTHER, SELFPAY ==
--- NOTE | ~2025-02-27 | XR_ITS ---
EXAMINATION: XR HAND, LEFT CLINICAL INFORMATION: M79.642 - Pain in left hand COMPARISON: January 22, 2025 from an outside institution. TECHNIQUE: PA, lateral, and oblique views of the left hand. FINDINGS: Joint space narrowing involving the proximal and distal interphalangeal joints of the digits. Degenerative changes in the first carpometacarpal joint. No acute cortical disruption or malalignment. No subcutaneous emphysema. 1 mm calcification in the soft tissues at the ulnar aspect of the distal interphalangeal joint third digit. XR/XR hand LT min 3V IMPRESSION: Osteoarthritis/osteoarthrosis without gross acute fracture or dislocation. Electronically signed by: Al Clifford MD 02/27/2025 10:08 AM EDT
--- OUTSIDE RECORDS SUMMARY | 2025-02-27 09:30 | XMS_ITS | Clinical Summary ---
Author Organization [facility] Address [address] [place] [address] Care Team Providers Care Supervisor Gas Meter Repair Name Role Phone Unavailable Primary Care Provider Unavailabl e Surgical History Surgery Date Site/Laterality Comments HYSTERECTOMY PROCEDURE: HISTORICAL HYSTERECTOMY Medical History Medical History Date Comments Pure hypercholesterolemia 12/21/2006 DX:Pur e hypercholesterolemia Unspecified asthma(493.90) 12/29/2006 DX:Un specified asthma(493.90) Family History Relation Name Status Comments Aunt CO Father Alive CVA Mother Alive High cholestero l Sister Alive Uncle 1 CO Uncle 2 CO Uncle 3 CO Social History Tobacco Use Types Packs/Day Years [...]
--- OUTSIDE RECORDS SUMMARY | 2025-02-27 09:30 | XMS_ITS | Encounter Summary ---
Author Organization [employer] Address [address] [place] [address] [address] [place] [address] Care Team Providers Care Figure Clerk Name Role Phone Fela Grajeda MD Primary Care Provider [phone] Encounter Details Date Type Department Care Team ([facility] st Contact Info) Description 10/16/2024 Orders Only [facility] [address] [place] [address] Fela Grajeda MD [address] [place] [address] Macrocytosis (Primary Dx) Social History Tobacco Use [...] Orientation Straight 05/10/2022 10 :21 AM EDT Travel History Travel Start Travel End [place] 02/10/2025 02/17/2025 documented as of this encounter Plan of [...] AM EDT Narrative 11/03/2024 11:24 AM EDT [facility]'s [address] [place] [address] Mammography Report Signed Patient: Kenna Guzman MR#: [id number] 36 : 1965 Acct:[id number] Age/Sex: 59 / F ADM Date: 10/24/24 Loc: MAMMO Attending Dr: Fela Grajeda MD Ordering Physician: Fela Grajeda MD Results: 1 Negative Date of Service: 10/24/24 Follow Up: 1 Year From Orig ina Mammogram Procedure(s): MM tomosynthesis screening BI Accession Number(s): [id number] cc: Fela Grajeda MD EXAMINATION: MM SCREENING [...] DO Signed By: <Electronically signed by Lynn Caslilas DO in OV> 11/03/24 1121 DD/ 0745 TD/TT: 10/24/24 0755 Accounts Payable Professional: Procedure Note Donotuseinterpreter, Image - 11/03/2024 [facility] [address] [place] [address] Dr. [place], [place] [address] Mammography Report Signed Patient: Kenna GuzmanMR#: [id number] 36 : 1965Acct:[id number] Age/Sex: 59 / FADM Date: 10/24/24 Loc: HO.MAMMO Attending Dr: Fela Grajeda MD Ordering Physician: Fela Grajeda MDResults: 1 Negative Date of Service: 10/24/24Follow Up: 1 Year From Orig inal Mammogram Procedure(s): MM tomosynthesis screening BI Accession Number(s): [id number] cc: Fela Grajeda MD EXAMINATION: MM SCREENING [...] 11/03/24 1121 DD/ 0745 TD/TT: 10/24/24 0755 Accounts Payable Professional: Fela Grajeda MD IMG BI PROCEDURES Edited Re sult - Final documented in this encounter Visit Diagnoses Diagnosis Macrocytosis- Primary Other specified diseases of blood and blood-forming organs documented in this encounter Additional Health Concerns Assessment Noted Time PHQ-9 Depression Total Score: 7 10/16/19 9:53 AM EDT documented as of this encounter Care Teams Figure Clerk Relationship Specialty Start Date End Date Fela Grajeda MD [address] [place] [address] PCP - General Internal Medicine 07/11/18 documented as of this encounter
== END 2025-02-27 08:49 | disposition home or self-care (01) ==
LOC: HO.HOSX 08:48
DX: S60.222A Contusion of left hand, initial encounter (principal); S60.212A Contusion of left wrist, initial encounter; M79.642 Pain in left hand; R20.2 Paresthesia of skin; R20.0 Anesthesia of skin; W01.0XXA Fall on same level from slipping, tripping and stumbling without subsequent striking against object, initial encounter; Z87.39 Personal history of other diseases of the musculoskeletal system and connective tissue
CPT/HCPCS: 73130

== ENCOUNTER 2025-02-27 09:48 | Outpatient (AMB) | payer OTHER, SELFPAY ==
--- NOTE | 2025-02-27 10:00 | A.OFFVIS_ITS ---
Intake Visit Reasons: OV - Left 4th MC contusion Intake Note: Kenna is a 59 year old right hand dominant female presents today status post left4 th metacarpal contusion. At her last visit with Dr. King she was fitted for a velcro wrist splint to be worn for the following 4 weeks with daily activities. She was instructed to remove it while at rest at home, and at night, and to work on ROM exercises. Patient was advised to lift nothing heavier than a cellphone for the next 4 weeks and to limit or avoid any heavy impact activities. Today, patient reports she took a fall on 02/24/25, on the same stair as before, landing on the left hand. She is concerned that she re-Injured her left hand. Patient states pain is on the same spots, on the dorsal aspect of the left hand with associated numbness and tingling that radiates to the volar aspect of the wrist. She is taking Tylenol and Motrin with some relief. She continues wearing her velcro wrist brace. Allergies No Known Allergies (No Known Allergies*) Allergy (Unverified 02/27/25 10:11) Amytryplines Allergy (Unknown, Uncoded 02/27/25 10:11) heart palpations Z-packs Allergy (Unknown, Uncoded 02/27/25 10:11) Hives HPI HPI OV - Left 4th MC contusion: Details: Kenna is a 59 year old right hand dominant female presents today status post left4 th metacarpal contusion. At her last visit with Dr. King she was fitted for a velcro wrist splint to be worn for the following 4 weeks with daily activities. She was instructed to remove it while at rest at home, and at night, and to work on ROM exercises. Patient was advised to lift nothing heavier than a cellphone for the next 4 weeks and to limit or avoid any heavy impact activities. Today, patient reports she took a fall on 02/24/25, on the same stair as before, landing on the left hand. She is concerned that she re-Injured her left hand. Patient states pain is on the same spots, on the dorsal aspect of the left hand with associated numbness and tingling that radiates to the volar aspect of the wrist. She is taking Tylenol and Motrin with some relief. She continues wearing her velcro wrist brace. 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 Review of Systems Const All systems reviewed & are unremarkable except as noted in HPI and below Physical Exam Const General: cooperative, healthy appearing and no acute distress Orientation/consciousness: patient oriented x3 HEENT Head: Yes normocephalic and Yes atraumatic Eyes EOM: EOMs intact bilaterally Resp Effort & Inspection: normal respiratory effort and able to speak in complete sentences Cardio Jugular venous distension: no JVD Skin General skin exam: turgor normal Rashes: no rashes Neuro General: patient oriented x3 Extrem Other: Evaluation of Left Upper Extremity: The patient is alert, oriented, and in no acute distress Neuro: Decreased subjective sensation dorsal ulnar aspect of the hand, extending to the small & ring fingers Normal sensation in the thumb & index fingers Normal sensation to the pads of all fingers Vascular: Cap refill brisk ROM: With encouragement She can make a fist and extend all her digits Good elbow ROM without pain Skin: No lacerations or abrasions or evidence of open fracture General: No ecchymosis. Resolving swelling over the dorsal central aspect of her wrist No Erythema or evidence of infection. Most tender over the dorsal capitate Tender over the 4th metacarpal base Mild tenderness over the scaphoid tubercle No tenderness over the distal radius, DRUJ, or distal ulna DRUJ stable on exam No snuffbox tenderness No tenderness over the Triquetrum Radiographs: 3 views of the left wrist were taken and viewed by me today in clinic. They show no fractures or dislocations. 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 Left capitate contusion 2. Left 4th metacarpal contusion, S/P fall, DOI: 01/12/25 First seen for this at urgent care on 01/22/25 First seen here 01/29/25 3. Left hand numbness Primarily the dorsal aspect of the middle, ring, and small fingers Symptoms intermittent, but daily, worse at night S/P injury, DOI: ~01/21/25 Hx of left carpal tunnel release, done at an outside clinic I educated her about these conditions I discussed operative and non-operative treatment options No operative treatment indicated EMG and nerve conduction study ordered to assess nature of numbness and tingling of left hand She was fitted for a velcro wrist splint at last visit, should continue to wear this with daytime activities for the next 4 weeks She will remove this splint when at rest to work on finger ROM exercises I discussed activity modifications, she is to lift nothing heavier than a cellphone for the next 4 weeks. She is to limit or avoid any heavy impact acti vities or falls for the next 4 weeks. She will follow up after EMG and nerve conduction study Scribed for Shira King MD by Riaz Arriaga, medical device engineer, on 01/29/25 at 9:55 AM, EST. Orders: Orders XR hand LT min 3V Today M79.642 - Pain in left hand NE nerve conduction velocity Today R20.0 - Anesthesia of skin, R20.2 - Paresthesia of skin NE electromyogram (EMG) Today R20.0 - Anesthesia of skin, R20.2 - Paresthesia of skin Coding Level of Care Code Est Pt Level 3 (87008) Diagnoses Contusion of multiple sites of left hand and wrist S60.222A; S60.212A Numbness and tingling in left hand R20.0; R20.2
--- OUTSIDE RECORDS SUMMARY | 2025-02-27 10:38 | XMS_ITS | Clinical Summary ---
Author Organization [facility] Address [address] [place] [address] Care Team Providers Care Supervisor Newspaper Deliveries Name Role Phone Unknown, Primary Care Provider [...] age to complete this topic Care Teams Supervisor Newspaper Deliveries Relationship Specialty Start Date End Date Unknown, PCP - General 09/09/21
== END 2025-02-27 10:25 | disposition home or self-care (01) ==
LOC: HO.HOS 09:48
DX: S60.222A Contusion of left hand, initial encounter (principal); S60.212A Contusion of left wrist, initial encounter; R20.0 Anesthesia of skin; R20.2 Paresthesia of skin
CPT/HCPCS: 99213

== ENCOUNTER → 2025-02-27 09:51 | Outpatient (BNV) | payer OTHER, SELFPAY | PROVIDERS: Visit Provider Radiology Diagnostic Radiology | DX: M19.042 Primary osteoarthritis, left hand (principal) | CPT/HCPCS: 73130 ==

== ENCOUNTER 2025-05-01 08:40 | Outpatient (REF) | payer OTHER, SELFPAY ==
--- NOTE | 2025-05-01 08:44 | EMG_ITS ---
Chief complaint: Left elbow pain with numbness on 4th and 5th digits History of left CTR Reason for referral: Evaluate for ulnar neuropathy Referred by: Holden PEREZ Procedure done: Left upper extremity NCS/EMG Precautions and/or limitations: None The limb temperature was monitored continuously and remained between 32-36 degrees C during the performance of the NCS. Ulnar motor NCS was performed with moderate elbow flexion between 70-90 degrees, with across-elbow distance of 10 cm. Nerve Conduction Studies Anti Sensory Summary Table ?Stim Site NR Onset (ms) Norm Onset (ms) Peak (ms) Norm Peak (ms) O-P Amp (?V) Norm O-P Amp Site1 Site2 Delta-0 (ms) Dist (cm) Bowen (m/s) Norm Bowen (m/s) Left Median Anti Sensory (2nd Digit) Wrist ? 3.1 3.9 <3.6 6.0 >10 Wrist 2nd Digit 3.1 14.0 45 Left Radial Anti Sensory (Thumb) Forearm ? 1.7 2.2 <3.1 26.5 Forearm Thumb 1.7 0.0 Left Ulnar Anti Sensory (5th Digit) Wrist ? 3.0 3.6 <3.7 17.5 >15.0 Wrist 5th Digit 3.0 14.0 47 Motor Summary Table ?Stim Site NR Onset (ms) Norm Onset (ms) O-P Amp (mV) Norm O-P Amp iAmp (mV) Amp (1st) (%) Site1 Site2 Delta-0 (ms) Dist (cm) Bowen (m/s) Norm Bowen (m/s) Left Median Motor (Abd Poll Brev) Wrist ? 4.4 <3.9 8.5 >4.5 10.2 100.0 Elbow Wrist 3.3 18.0 55 >45 Elbow ? 7.7 8.3 10.1 97.6 Left Ulnar Motor (Abd Dig Minimi) Wrist ? 2.7 <3.0 7.6 >5 9.5 100.0 B Elbow Wrist 3.0 16.0 53 >45 B Elbow ? 5.7 7.6 9.7 100.0 A Elbow B Elbow 2.0 10.0 50 >45 A Elbow ? 7.7 7.0 9.0 92.1 Left Ulnar (FDI) Motor (FDI) Wrist ? 3.7 <3.0 6.4 >5 7.7 100.0 B Elbow Wrist 3.0 17.0 57 >45 B Elbow ? 6.7 5.3 6.3 82.8 A Elbow B Elbow 2.2 10.0 45 >45 A Elbow ? 8.9 5.3 6.2 82.8 EMG ?Side Muscle Nerve Root Ins Act Fibs Psw Amp Dur Poly Recrt Int Pat Comment Left 1stDorInt Ulnar C8-T1 Nml Nml Nml Nml Nml 0 Nml Complete Left FlexCarpiUln Ulnar C8,T1 Nml Nml Nml Nml Nml 0 Nml Complete Left Biceps Musculocut C5-6 Nml Nml Nml Nml Nml 0 Nml Complete Left Triceps Radial C6-7-8 Nml Nml Nml Nml Nml 0 Nml Complete Left Deltoid Axillary C5-6 Nml Nml Nml Nml Nml 0 Nml Complete FINDINGS: Left ulnar motor nerve showed prolonged distal latency, normal amplitude and slight slowing of conduction velocity across the elbow. However this is only seen when recording at FDI muscle, and not when recording at ADM muscle. Left median motor nerve showed prolonged distal latency, normal amplitude and normal conduction velocity. Left median sensory nerve showed small amplitude and prolonged peak latency. All other nerves tested were within normal. Concentric needle EMG was performed in selected muscles of the left upper extremity. Study did not reveal signs of electric abnormalities as shown in the table above. IMPRESSION: 1. This is an abnormal study. 2. 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 3. There are some findings suggestive for left ulnar neuropathy at the elbow. CLINICAL COMMENT: Her symptoms are suggestive of ulnar neuropathy although results above are mild. Still findings of left Carpal Tunnel Syndrome although she denies symptoms. No previous EMG available for my review. Thank you for your kind referral. Colette Hazel MD, KLAUS Board Certified, [place] Board [employer] and Rehabilitation (ABPMR) Board Certified, [place] Board of Electrodiagnostic Medicine (ABEM) CODIN 18843, 2 extremities MTDD
--- OUTSIDE RECORDS SUMMARY | 2025-05-01 09:08 | XMS_ITS | Clinical Summary ---
Author Organization [facility] [employer] [facility] Address [address] [place] [address] Care Team Providers Care Urban Renewal Manager Name Role Phone Unavailable Primary Care Provider Unavailabl e Surgical History Surgery Date Site/Laterality Comments HYSTERECTOMY PROCEDURE: HISTORICAL HYSTERECTOMY Medical History Medical History Date Comments Pure hypercholesterolemia 12/21/2006 DX:Pur e hypercholesterolemia Unspecified asthma(493.90) 12/29/2006 DX:Un specified asthma(493.90) Family History Relation Name Status Comments Aunt [place] Father Alive CVA Mother Alive High cholestero l Sister Alive Uncle 1 [place] Uncle 2 [place] Uncle 3 [place] Social History Tobacco Use Types Packs/Day Years [...] Last Done Comments Breast Cancer Screening 1965 Colorectal Cancer Screening: Colonoscopy 1965 DTaP,Tdap,and Td Vaccines (1 - Tdap) 1984 Hepatitis B Vaccines (1 of 3 - 19+ 3-dose series) 1984 Cervical Cancer Screening: P ap Smear 1986 Pneumococcal Vaccine: 50+ Years (1 of 1 - PCV) 2015 Zoster Vaccines (1 of 2) 2015 HIV Screening 06/13/2022 Hepatitis C Screening 06/13/2022 Social Influencers of Health Screening 06/13/2022 Depression Screening 07/11/2024 COVID-19 Vaccine (2023-2 5 season) 2025 Influenza Vaccine (#1) 2025 9, 04/21/2018 RSV [...]
--- OUTSIDE RECORDS SUMMARY | 2025-05-01 09:08 | XMS_ITS | Encounter Summary ---
Author Organization [employer] Address [address] [place] [address] Care Team Providers Care Floor Care Specialist Name Role Phone Fela Grajeda MD Primary Care Provider [phone] Reason for Visit * Reason Onset Date Comments Med Refill 03/07/2025 Encounter Details Date Type Department Care Team ([facility] st Contact Info) Description 03/07/[address] [facility] [address] [place] [address] Fela Grajeda MD [address] [place] [address] Med Refill Social History Tobacco Use Types Packs/Day Years [...] your housing situation today? I have barbara sing 10/15/[address] you li [...] AM EDT documented as of this encounter Miscellaneous Notes * Telephone Encounter - Kathy Marks LPN - 03/07/2025 9:43 AM EDT Please review request Losartan 25 mg was discontinued on 03/01/25. * Telephone Encounter - Amauri Camacho - 03/07/2025 9:26 AM EDT TC from pt requesting medication refill. Medications needing refill : losartan (Cozaar) 50 MG tablet To be sent to: [facility] - [place], [place] - [address] [place] [address] St documented in this encounter Plan of Treatment Not on file documented as of this encounter Visit Diagnoses Not on filedocumented in this encounter Additional Health Concerns Assessment Noted Time PHQ-9 Depression Total Score: 7 10/16/19 9:53 AM EDT documented as of this encounter Care Teams Floor Care Specialist Relationship Specialty Start Date End Date Fela Grajeda MD [address] [place] [id number] PCP - General Internal Medicine 07/11/18 documented as of this encounter
--- OUTSIDE RECORDS SUMMARY | 2025-05-01 09:08 | XMS_ITS | Data Portability ---
Author Organization [place] [facility], Allergy Address [address] [address] Care Team Providers Care Chief Innovation Officer Name Role Phone INDU ROPER Referring Provider [...] INTERNAL AUDITORY CANAL, W/WO CONTRAST 2024 025 [facility] ([facility]), [address] [place], [address], 13:51:40 CT, sinuses, w/o contrast 2024 025 [facility], [address], [address], 22:36:09 Medication Orders ofloxacin 0.3 % ear drops 2024 025 [facility][id number], [address] [place], [address], 10:14:11 gabapentin 300 mg capsule 2024 025 [facility] #[id number], [address] [place], [address], 10:16:39 Patient TargetsNo targets recorded. Patient InstructionsNo instructions recorded. Reason for Referral None Reported. Results Created Date Observation Date Name Description Value Unit Range Abnormal Flag Note LastModifiedBy Organization Detail LastModifiedTime 08/04/1908/02/2024 CT, sinus es, w/o contr ast No observ ation record ed. [email or web address] [address], [address], 08/08/2024 12:48:39 08/04/1908/02/2024 CT, sinus es, w/o contr ast No observ ation record ed. [facility] [address], [address], 08/08/2024 12:47:16 08/16/1908/15/2024 MRI, brain + brain stem, w/wo contr ast [facility] Access ion Number : [id number] Mike holly Name: Guzman , Kathry n Medica l Record Number : [id number] Date of : 1965 Date of Exam: 2024 Referr ing Physic paris: [facility] [address], [place] [address] [place] [address] Exam: MR Brain (C-/C+ ) CPT 90085 Room Descri ption: Ledbetter Siem Verio 3.0T INDICA TION: Left ear tinnit us TECHNI QUE: Multip lanar multis equenc e MRI of the brain using an IAC protoc ol was perfor med before and after the admini strati on of 10 mL of Dotare m. COMPAR GINI: No prior FINDIN GS: The bilate ral software development intern al audito ry canals are normal in [...] al enhanc ement in the bilate ral software development intern al audito ry canals . The visual ized brain is unrema rkable . The visual ized ventri cles and sulci normal . The midlin e the struct ures, main vascul ar flow voids, and basal cister ns are normal . There is fluid in inferi or left mastoi d air cells. IMPRES CIERRA: Unrema rkable bilate ral software development intern al audito ry canals . Small left mastoi d effusi on. Electr onical ly Signed By: Nicolasa TREVINO [facility] ([facility]) [address], [place], [address], 08/20/2024 12:58:05 08/20/19 25 audio gram No observ ation record ed. BARCODE Not Available 2024 15:37:28 Result Notes Documentation Provider Name and Address Organization Details Recorded Time Mri, Brain + Brain Stem, W/wo Contrast : [facility] Accession Number: [id number] Patient Name: Kenna Guzman Date of : 1965 Date of Exam: 08-15-2024 Referring Physician: Cesar Mishra [facility] [address] [address] Exam: MR Brain (C-/C+) CPT 26075 Room Description: [facility] 3.0T INDICATION: Left ear tinnitus TECHNIQUE: [...] effusion. Electronically Signed By: Nicolasa MISHRA MD [address] [place] [address], [phone], [facility] 08/20/2024 12:52:57 Problems Name Problem SNOMED Code Status Onset Date Resolution Date Notes Provider Name and Address Organization Details Recorded Time Atypical facial pain 15110660 Active 2024 CESAR MISHRA MD [address] [place] [address], [address], [facility] - [facility] 5 14:05:05 Sensorineur al hearing loss of bilateral ears 122617097 Active 2024 ETHEL MURRAY [address] [place] [address], [address], [facility] - [facility] 5 10:49:21 Tinnitus of left ear 0093835229283 Active 2024 CESAR MISHRA MD [address] [place], [place] [address], [place], [address], [facility] - [facility] 5 11:16:45 Chronic rhinitis 89520603 Active 2024 CESAR MISHRA MD [address] [facility], [facility], [place], [address], [facility] - [facility] 5 11:17:09 Non-allergi c rhinitis 769211837021 Active 2024 CESAR MISHRA MD [address] [facility], [facility], [place], [address], [facility] - [facility] 5 11:17:20 Allergic rhinitis 42951060 Active 2024 CESAR MISHRA MD [address] [facility], [facility], [place], [address], [facility] - [facility] 5 11:17:20 Seasonal allergic rhinitis 738305026 Active 2024 CESAR MISHRA MD [address] [facility], [facility], [place], [address], [facility] - [facility] 5 11:17:20 Disorder of left Eustachian tube 8945850578576 109 Active 2024 CESAR MISHRA MD 100 [facility], [facility], [place], [address], [facility] 5 16:05:15 Problem Notes None recorded. Procedures Surgical History Date Name Laterality Status Provider Name and Address Organization Details Recorded Time 08/30/19 25 Myringotomy with Aspiration left completed CESAR MISHRA MD [address] [facility],[place] [address], [place], [address], [facility] 09/02/2024 17:24:11 08/10/19 25 Comp Audio with Tymps - 61066 & 77527 completed ETHEL MURRAY [address] [facility],[place] [address], [place], [address], [facility] - [facility] 08/10/2024 10:48:45 07/27/19 25 JMSNasal/Sinus Endoscopy completed CESAR MISHRA MD [address] [facility],[address], [address], [facility] 07/27/2024 14:04:54 hysterectomy completed CESAR MISHRA MD [address] [facility],[address], [address], [facility] 07/27/2024 13:31:56 Imaging Results None recorded. Procedure Notes None recorded. Medical Equipment None Reported. Allergies Allergen ID Allergen Name Allergen Category Reaction Reaction Severity Criticality Documentation Date Start Date Code Code System Note Provider Name and Address Organization Details Recorded Time 180663 azithromy segun medicatio n Not available Not available Not available 07/27/2024 37888 RxNorm Jenny Potvin [place] - [facility] 13:23:14 930804 amitripty line medicatio n Not available Not available Not available 07/27/2024 704 RxNorm Jenny Potvin null, [facility] 13:23:23 165186 clindamyc in Not available Not available Not available Not available 07/27/2024 2582 RxNorm Jenny Potvin null, [facility] 13:23:39 811785 prednison e medicatio n Not available Not available Not available 07/27/2024 8640 RxNorm Jenny Potvin null, [place] [facility] 13:23:49 048434 rofecoxib medicatio n Not available Not available Not available 07/27/2024 42431 8 RxNorm Jenny Potvin null, [facility] 5 13:24:01 541892 Substance with macrolide structure and antibacte rial mechanism of action (substanc e) medicatio n Not available Not available Not available 07/27/2024 77751 0009 SNOMED Jenny Potvin null, [place] [facility] 5 13:24:13 549864 erythromy segun medicatio n Not available Not available Not available 07/27/2024 4053 RxNorm Jenny Carter [place] [facility] 5 13:24:35 105209 nortripty line medicatio n Not available Not available Not available 07/27/2024 7531 RxNorm Jenny watkins, [place] [facility] 13:24:44 028521 hydralazi ne medicatio n Not available Not available Not available 07/27/2024 5470 RxNorm Jenny Raul null, [place] [facility] 5 13:24:53 422309 hydrochlo rothiazid e medicatio n Not available Not available Not available 07/27/2024 5487 RxNorm Jenny watkins, [place] [facility] 13:25:10 319282 fluconazo le medicatio n Not available Not available Not available 07/27/2024 4450 RxNorm Jenny Carter [place] [facility] 13:25:22 Medications Name Sig Start Date [...] Updated DateTime 07/27/2024 154.94 cm 26.5 kg/m2 35554.93 g Jenny Carter [place] - [facility] 07/27/2024 13:20:28 Date Recorded Body height Body mass index (BMI) Body weight Provider Name and Address Organization Details Last Updated DateTime 08/10/2024 154.94 cm 26.3 kg/m2 09384.34 g Jenny Carter [place] [facility] 08/10/2024 10:16:23 Date Recorded Body height Body mass index (BMI) Body weight Provider Name and Address Organization Details Last Updated DateTime 08/30/2024 154.94 cm 26.6 kg/m2 77524.52 g Jenny Carter [place] [facility] 08/30/2024 15:50:20 Date Recorded Body height Body mass index (BMI) Body weight Provider Name and Address Organization Details Last Updated DateTime 09/28/2024 154.94 cm 26.6 kg/m2 09299.52 g Jenny Carter [place] [facility] 09/28/2024 10:14:01 Social History Question Answer Notes LastModified by Organizat ion Details LastModified Time Tobacco Smoking Status Former Smoker CESAR MISHRA MD [address] [place] [address], [address], [facility] - [facility] 07/27/2024 13:31:44 When Did You Quit [...] Diagnosis SNOMED-CT Code Diagnosis ICD10 Code Diagnosis IMO Codes Diagnosis Note [id number] CESAR MISHRA MD [facility] [address] [address] 07/27/2024 13:16:55 07/27/2024 14:09:51 Atypical facial pain 02260899 G50.1 No evidence of bacterial infection on [...] s, but agrees to try gabapentin again. [id number] CESAR MISHRA MD [facility] [address] [address] 08/10/2024 10:10:09 08/10/2024 13:04:08 Sensorineural hearing loss of bilateral ears 524668386 H90.3 Audiologic al evaluation results: Right ear: Essentiall y normal hearing with the exception of a moderately -severe SNHL at 8000Hz with excellent word recognitio n. Left ear: Essentiall y normal sloping to moderately severe sensorineu ral hearing loss with excellent word recognitio n. Tympanomet ry: Right Ear:Type Ad Left Ear:Type A Tinnitus of left ear 886 9057303 106 H93.12 Chronic rhinitis 9437875 6 J31.0 [id number] CESAR MISHRA MD [facility] [address] [address] 08/30/2024 15:44:37 08/30/2024 16:11:56 Disorder of left Eustachian tube 0728065914 666618 H69.92 59-year-ol d female with left-sided head [...] does, we can proceed with tube placement. [id number] CESAR MISHRA MD [facility] [address] [address] 09/28/2024 09:50:16 09/28/2024 10:28:10 Disorder of left Eustachian tube 9723595373 340732 H69.92 Symptoms are markedly improved after myringotom [...] Ross Member ID Guarantor Name 11/16/2024 1 [id number] Kenna Guzman [id number] 1 Kenna Guzman Notes Date Note Type Note Provider Name and Address Organization Details Recorded Time 5 text/html ROS as noted in the HPI 59 yo F with acute sinus symptoms. started itching in the earheadachestinnitus on the left Had XR at [place] which looked normal left extending to ear cough betterno meds now a couple abx but did not help augmentin and then a second with steroidoriginally infected tooth, now a new root canal mandibular usually 3-4 sinus infections per year here 10 years ago (Kenna Nielsen chart 586252) CT negativeBeer and mold positive for allergy testing , has been on flonase prednisone allergynortriptyline allergygabapentin did not seem to help in past has been on sudafed and mucinex CESAR MISHRA MD [address] [place] [address], [address], [facility] - [facility] 08/08/2024 12:44:27 5 text/html ROS as noted in the HPI No improvement in symptoms. She is very distressed by her symptoms. PV: 59 yo F with acute sinus symptoms. started itching in the earheadachestinnitus on the left Had XR at [place] which looked normal left extending to ear cough betterno meds now a couple abx but did not help augmentin and then a second with steroidoriginally infected tooth, now a new root canal mandibular usually 3-4 sinus infections per year here 10 years ago (Kenna Nielsen chart [id number]) CT negativeBeer and mold positive for allergy testing , has been on flonase prednisone allergynortriptyline allergygabapentin did not seem to help in past has been on sudafed and mucinex CESAR MISHRA MD [address] [facility],[address], [address], [place] [facility] 08/14/2024 08:32:26 5 text/html 59-year-old female presents today for follow-up. Her MRI did not show any concerning findings, but did show some fluid in a few of the left sided air cells. CESAR MISHRA MD [address] [facility],[address], [address], [place] [facility] 09/02/2024 17:25:28 5 text/html ROS as noted in the HPI Dizziness is gone, pressure 80% better.Second drops made a difference in the ear almost immediately. CESAR MISHRA MD [address] [facility],[place] [address], [place], [address], [place] [facility] 09/28/2024 10:29:29 OBGyn Episode No OBEpisode recorded.
--- OUTSIDE RECORDS SUMMARY | 2025-05-01 09:08 | XMS_ITS | Encounter Summary ---
Author Organization [employer] Address [address] [facility] [address] [place] [address] Care Team Providers Care Civilian Jail Officer Name Role Phone Fela Grajeda MD Primary Care Provider [phone] Encounter Details Date Type Department Care Team ([facility] st Contact Info) Description 04/10/2025 Orders Only [facility] [address] [place], [place] [phone] Fela Grajeda MD [address] [place] [address] Primary hypertension (Primary Dx) Social History Tobacco Use Types [...] as of this encounter Visit Diagnoses Diagnosis Primary hypertension- Primary Unspecified essential hypertension documented in this encounter Additional Health Concerns Assessment Noted Time PHQ-9 Depression Total Score: 7 10/16/19 25 9:53 AM EDT documented as of this encounter Care Teams Civilian Jail Officer Relationship Specialty Start Date End Date Fela Grajeda MD [address] [place] [address] PCP - General Internal Medicine 07/11/18 documented as of this encounter
--- OUTSIDE RECORDS SUMMARY | 2025-05-01 09:08 | XMS_ITS | Encounter Summary ---
Author Organization [employer] Address [address] [place] [address] [address] [place] [address] Care Team Providers Care Photocopying Equipment Repairer Name Role Phone Fela Grajeda MD Primary Care Provider [phone] Encounter Details Date Type Department Care Team ([facility] st Contact Info) Description 10/16/2024 Orders Only [facility] [address] [place] [address] Fela Grajeda MD [address] [place] [address] Macrocytosis (Primary Dx) Social History Tobacco Use [...] EDT Narrative 11/03/2024 11:24 AM EDT [facility] [address] [place] [address] Mammography Report Signed Patient: Kenna Guzman MR#: [id number] 36 : 1965 Acct:[id number] Age/Sex: 59 / F ADM Date: 10/24/24 Loc: MAMMO Attending Dr: Fela Grajeda MD Ordering Physician: Fela Grajeda MD Results: 1 Negative Date of Service: 10/24/24 Follow Up: 1 Year From Orig ina Mammogram Procedure(s): MM tomosynthesis screening BI Accession Number(s): [id number] cc: Fela Grajeda MD EXAMINATION: MM SCREENING [...] 11/03/24 1121 DD/ 0745 TD/TT: 10/24/24 0755 Waste Baler: Procedure Note Donotuseinterpreter, Image - [facility] [address] [place], [place] [address] Mammography Report Signed Patient: Kenna GuzmanMR#: [id number] 36 : 1965Acct:[id number] Age/Sex: 59 / FADM Date: 10/24/24 Loc: MAMMO Attending Dr: Fela Grajeda MD Ordering Physician: Fela Grajeda MDResults: 1 Negative Date of Service: 10/24/24Follow Up: 1 Year From Orig inal Mammogram Procedure(s): MM tomosynthesis screening BI Accession Number(s): [id number] cc: Fela Grajeda MD EXAMINATION: MM SCREENING [...] 11/03/24 1121 DD/ 0745 TD/TT: 10/24/24 0755 Waste Baler: Fela Grajeda MD IMG BI PROCEDURES Edited Re sult - Final documented in this encounter Visit Diagnoses Diagnosis Macrocytosis- Primary Other specified diseases of blood and blood-forming organs documented in this encounter Additional Health Concerns Assessment Noted Time PHQ-9 Depression Total Score: 7 10/16/19 25 9:53 AM EDT documented as of this encounter Care Teams Photocopying Equipment Repairer Relationship Specialty Start Date End Date Fela Grajeda MD [address] [place] [address] PCP - General Internal Medicine 07/11/18 documented as of this encounter
--- OUTSIDE RECORDS SUMMARY | 2025-05-01 09:09 | XMS_ITS | Encounter Summary ---
Author Organization [employer] Address 75 [facility] 7 [place] [address] Care Team Providers Care Sweep Molder Name Role Phone Fela Grajeda MD Primary Care Provider [phone] Encounter Details Date Type Department Care Team ([facility] st Contact Info) Description 11/01/2024 Orders Only [facility] [address] [place], [place] [phone] Fela Grajead MD [address] [place] [address] Social History Tobacco Use Types Packs/Day Years [...] documented as of this encounter Care Teams Sweep Molder Relationship Specialty Start Date End Date Fela Grajeda MD [address] [place] [address] PCP - General Internal Medicine 07/11/18 documented as of this encounter
--- OUTSIDE RECORDS SUMMARY | 2025-05-01 09:09 | XMS_ITS | Clinical Summary ---
Author Organization [facility] Address [address] [place] [address] Care Team Providers Care Towel Inspector Name Role Phone Unknown, Primary Care Provider [...] age to complete this topic Care Teams Towel Inspector Relationship Specialty Start Date End Date Unknown, PCP - General 09/09/21
--- OUTSIDE RECORDS SUMMARY | 2025-05-01 09:09 | XMS_ITS | Encounter Summary ---
Author Organization [employer] Address [address] [place] [address] Care Team Providers Care Driller Portable Name Role Phone Fela Grajeda MD Primary Care Provider [phone] Reason for Visit * Reason Comments Med Refill Encounter Details Date Type Department Care Team ([facility] Contact Info) Description 01/09/2024 Refill [facility] [address] [place] [address] Fela Grajeda MD [address] [place] [address] Seasonal allergies Social History Tobacco Use Types [...] documented as of this encounter Care Teams Driller Portable Relationship Specialty Start Date End Date Fela Grajeda MD [address] [place] [address] PCP - General Internal Medicine 07/11/18 documented as of this encounter
--- OUTSIDE RECORDS SUMMARY | 2025-05-01 09:09 | XMS_ITS | Encounter Summary ---
Author Organization [employer] Address 75 [facility] 7 [place] [address] Care Team Providers Care Med Aide Name Role Phone Fela Grajeda MD Primary Care Provider [phone] Encounter Details Date Type Department Care Team ([facility] st Contact Info) Description 03/01/2025 Orders Only [facility] [address] [place], [place] [phone] Fela Grajeda MD [address] [place] [address] Primary hypertension (Primary Dx) Social History Tobacco [...] documented as of this encounter Care Teams Med Aide Relationship Specialty Start Date End Date Fela Grajeda MD [address] [place] [address] PCP - General Internal Medicine 07/11/18 documented as of this encounter
--- OUTSIDE RECORDS SUMMARY | 2025-05-01 09:09 | XMS_ITS | Clinical Summary ---
Author Organization [employer] Address [address] [place] [address] 7 [place] [address] Care Team Providers Care Power Generation Plant Operator Name Role Phone Fela Grajeda MD Primary Care Provider [phone] Allergies Active Allergy Reactions Criticality Noted Date [...] tab po q4hrs 28 tablet 4 Active Mometasone Furoate (Asmanex HFA) 100 MCG/ACT aerosolIndication s:Seasonal allergies Inhale 100 mcg Once per day. 13 g 11 4 Active albuterol 108 (90 Base) MCG/ACT inhalerIndication s:Congestion of nasal sinus,Acute cough Inhale 2 puffs every 4 (four) hours if needed for wheezing. 18 g 4 06/28/20 25 Active dexAMETHasone (Decadron) 4 MG tablet Take 1 tablet (4 mg) by mouth Once per day for 3 days. 3 tablet 5 Active azelastine (Astelin) 0.1 % nasal sprayIndications: Subacute pansinusitis Administer 1 spray into each nostril 2 times daily. Use in each nostril as directed 30 mL 12 5 07/25/19 Active cetirizine (ZyrTEC) 10 MG tabletIndications :Seasonal allergies TAKE ONE TABLET DAILY 30 tablet 11 5 Active albuterol 108 (90 Base) MCG/ACT inhalerIndication s:Seasonal allergies INHALE TWO PUFFS EVERY 4 HOURS NEEDED FOR WHEEZING 8.5 g 1 5 Active losartan (Cozaar) 50 MG tabletIndications :Primary hypertension Take 1 tablet (50 mg) by mouth Once per day. 30 tablet 11 5 03/07/20 26 Active fluticasone (Flonase) 50 MCG/ACT nasal spray INHALE 1 SPRAY IN EACH NOSTRIL ONCE DAILY 16 g 2 Active spironolactone (Aldactone) 25 MG tabletIndications :Primary hypertension Take 1 tablet (25 mg) by mouth Once per day. 30 tablet 11 5 04/10/20 26 Active losartan (Cozaar) 25 MG tabletIndications :Primary hypertension Take 1 tablet (25 mg) by mouth Once per day. 30 tablet 11 5 04/15/20 Active Hospital, Clinic, or Other Facility Administered [...] loosen mucus or vapor showers. Take Acetaminophen (Tylenol )/Ibuprofen as needed to reduce fever, headache, body aches or discomfort Gargle with salt water and use throat sprays/lozenges for throat pain. FU sent out respiratory panel Hives 11/14/2023 Assessment [...] Encounters Date Type Department Care Team Description 04/15/2025 Telephone [facility] MED & PEDS [address] [place] [address] Fela Grajeda MD Medication Question 04/10/2025 Orders Only [facility] MED & PEDS [address] [place] [address] Fela Grajeda MD Primary hypertension (Primary Dx) 04/08/2025 Telephone [facility] MEDICINE [address] [place] [address] Fela Grajeda MD Medication Question 03/24/2025 Refill [facility] [address] [place] [address] [phone] Elizabeth Ravi MD 03/07/2025 Telephone [facility] MED & PEDS [address] [place] [address] Fela Grajeda MD Med Refill 03/01/2025 Telephone [facility] MED & PEDS [address] [place] [address] Fela Grajeda MD 03/01/2025 Orders Only [facility] MED & PEDS [address] [place] [address] Fela Grajeda MD Primary hypertension (Primary Dx) 02/19/2025 3:15 PM EDT Office Visit [facility] MED & PEDS [address] [place] [address] Fela Grajeda MD Primary hypertension (Primary Dx); Dietary counseling; Exercise counseling; Overweight 02/19/2025 Travel 02/18/2025 Travel 02/10/2025 Refill [facility] MED [facility] [address] [place] [address] Fela Grajeda MD Seasonal allergies from Last 3 Months Immunizations Immunization Administration Dates Next Due Influenza injectable quadriv [...] Sign Reading Time Taken Comments Blood Pressure 138/94 02/19/2025 3:31 PM EDT Pulse 98 02/19/2025 3:31 PM EDT Temperature 36.6 C (97.8 F) 02/19/2025 3:31 PM EDT Respiratory Rate 20 02/19/2025 3:31 PM EDT Oxygen Saturation 96% 02/19/2025 3:31 PM EDT Inhaled Oxygen Concentration - - Weight 67.6 kg (149 lb) 02/19/2025 3:31 PM EDT Height 154.9 cm (5' 1 ) 02/19/2025 3:31 PM EDT Body Mass Index 28.15 02/19/2025 3:31 PM EDT Plan of Treatment Health Maintenance Due Date Last Done Comments CT Colonography 1965 FIT DNA/Cologuard 1965 FIT 1965 FOBT 1965 Sigmoidoscopy 1965 Hepatitis B Vaccines (1 of 3 - 19+ 3-dose series) 1984 Pap Smear 1986 Cervical Cancer Screening 1995 HPV/Cotest 1995 Pneumococcal Vaccine: 50+ Years (1 of 1 - PCV) 2015 DTaP/Tdap/Td Vaccines (2 - Td or Tdap) 01/16/2022 01/17/2012 COVID-19 Vaccine ( - season) 2025 05/27/2021, 11/02/2020, 10/10/2020 Influenza Vaccine (#1) 2025 , 05/31/2019, 04/21/2018, Additional history exists Disability Screening 07/25/2025 07/25/2024 Alcohol/Substance Use Screening 10/15/2025 10/15/2024 Depression Screening 10/15/2025 10/15/2024, 10/16/19 25 SDOH Screening 10/15/2025 10/15/2024 Tobacco Screening 02/20/2026 02/20/2025 Mammogram 10/24/2026 10/24/2024, 04/1 , 10/12/2022, Additional history exists Colonoscopy 10/03/2028 Colorectal Cancer [...] TOMOSYNTHESIS BILATERAL Routine 10/24/2024 7:45 AM EDT HIV 1/2 ANTIGEN/ANTIBODY, FOURTH GENERATION W/RFL Routine 10/15/2024 10:09 AM EDT Annual physical exam Palpitations LIPID PANEL, STANDARD Routine 10/15/2024 10:04 AM EDT Annual physical exam Palpitations ZZZ HISTORICAL HEPATITIS C AB W/REFL TO HCV RNA, QN, PCR Routine 07/13/2021 9:22 AM EST from Last 3 Months or Most Recently Relevant to Health Maintenance Results * BI Mammogram Screening Tomosynthesis Bilateral (10/24/2024 7:45 AM EDT) Anatomical Region Laterality Modality Breast Bilateral Mammography 10/24/2024 7:45 AM EDT Narrative 11/03/2024 11:24 AM EDT [facility] [address] [place] [address] Mammography Report Signed Patient: Kenna Guzman MR#: [id number] [birth year] : 1965 Acct:[id number] Age/Sex: 59 / F ADM Date: 10/24/24 Loc: HO.MAMMO Attending Dr: Fela Grajeda MD Ordering Physician: Fela Grajeda MD Results: 1 Negative Date of Service: 10/24/24 Follow Up: 1 Year From Orig ina Mammogram Procedure(s): MM tomosynthesis screening BI Accession Number(s): [id number] cc: Fela Grajeda MD EXAMINATION: MM SCREENING [...] 11/03/24 1121 DD/ 0745 TD/TT: 10/24/24 0755 Operations Intern: Procedure Note Donotuseinterpreter, Image - 11/03/2024 [facility] [address] [place], [place] [address] Mammography Report Signed Patient: Kenna GuzmanMR#: [id number] 36 : 1965Acct:[id number] Age/Sex: 59 / FADM Date: 10/24/24 Loc: HO.MAMMO Attending Dr: Fela Grajeda MD Ordering Physician: Fela Grajeda MDResults: 1 Negative Date of Service: 10/24/24Follow Up: 1 Year From Orig inal Mammogram Procedure(s): MM tomosynthesis screening BI Accession Number(s): [id number] cc: Fela Grajeda MD EXAMINATION: MM SCREENING [...] 11/03/24 1121 DD/ 0745 TD/TT: 10/24/24 0755 Operations Intern: us Fela Grajeda MD IMG BI PROCEDURES Edited Re sult - Final * HIV-1/2 Antigen and Antibodies, Fourth Generation, with Reflexes (10/15/2024 10:09 AM EDT) HIV AB/AG Nonreactive Nonreactive [facility] Comment:HIV-1 p24 Ag and/or HIV-1/HIV-2 Ab not detected.A test result that is nonreactive does not exclude thepossibility of exposure to or infection with HIV-1 and/orHIV-2. Nonreactive results in this assay for individualswith prior exposure to HIV-1 and/or HIV-2 may be due toantigen and antibody levels that are below the limit ofdetection of this assay.The [employer] HIV Ag/Ab Combo assay result andsupplemental assay results should be interpreted inconjunction with the patient's clinical presentation,history and other laboratory results. If the results areinconsistent with clinical evidence, additional testing issuggested to confirm the result. Blood Venous blood specimen / Unknown 10/15/2024 10:09 AM EDT 10/15/2024 1:56 PM EDT us Fela Grajeda MD LAB BLOOD ORDERABLES Final Result Performing Organization Address [facility] Co de Phone Number [facility] [address] [place] [address] [phone] * (ABNORMAL) Lipid Panel, Standard (10/15/2024 10:04 AM EDT) Triglycerides 55 <150 mg/dL [facility] Comment:Desirable Triglyceri de: less than 150 mg/dLBorderline High Triglyceride 150-199 mg/dLHigh Triglyceride: 200-499 mg/dLVery High Triglyceride: greater than or equal to 5OO mg/dL Cholesterol 236(H) <200 mg/dL [facility] Comment:Desirable Cholestero l: less than 200 mg/dLBorderline High Cholesterol: 200-239 mg/dLHigh Cholesterol: greater than 239 mg/dL LDL Cholesterol Calculated 140(H) <100 mg/dL [facility] Comment:Desirable LDL: less than 100 mg/dLNear Optimal/Above Optimal LDL: 110- 129 mg/dLBorderline High LDL: 130-159 mg/dLHigh LDL: 160-189 mg/dLVery High LDL: greater than or equal to 190 mg/dL HDL Cholesterol 85 >40 mg/dL [facility] Comment:Desirable HDL: great er than 40 mg/dL Note: This HDL assay may give artificially low results in patients with liver disease. Blood Venous blood specimen / Unknown 10/15/2024 10:04 AM EDT 10/15/2024 1:56 PM EDT us Fela Grajeda MD LAB BLOOD ORDERABLES Final Result Performing Organization Address [facility]/ZIP Co de Phone Number [facility] [address] [place] [address] [phone] * HEPATITIS C AB W/REFL TO HCV RNA, QN, PCR (07/13/2021 9:22 AM EST) HEPATITIS C ANTIBODY NON-REACT CAIO NON-REACT CAIO [facility] INDEX 0.01 <1.00 [facility] Comment: HCV antibody was non-reactive. There is no laboratory evidence of HCV infection. In most cases, no further action is required. However, if recent HCV exposure is suspected, a test for HCV RNA (test code 26758) is suggested. For additional information please refer to http://EverConnect.FireID/faq/WLK29d9 (This link is being provided for informational/ educational purposes only.) 07/13/2021 9:22 AM EST us Fela Grajeda MD HISTORICAL/NON ORDERABLE JULIAN SANFORD Final Result [facility] [address] from Last 3 Months or Most Recently Relevant to Health Maintenance Insurance [facility] Care Teams Power Generation Plant Operator Relationship Specialty Start Date End Date Fela Grajeda MD [address] [place] [id number] PCP - General Internal Medicine 07/11/18
== END 2025-05-01 08:41 | disposition home or self-care (01) ==
LOC: HO.NEURO 08:40
PROVIDERS: PCP Internal Medicine
DX: R20.0 Anesthesia of skin (principal); R20.2 Paresthesia of skin
CPT/HCPCS: 95886; 95909

== ENCOUNTER → 2025-05-01 08:44 | Outpatient (BNV) | payer OTHER, SELFPAY | PROVIDERS: PCP Internal Medicine; Visit Provider Physical Medicine & Rehabilitation | DX: G56.02 Carpal tunnel syndrome, left upper limb (principal) | CPT/HCPCS: 95886; 95909 ==

== ENCOUNTER 2025-05-15 11:11 | Outpatient (AMB) | payer OTHER, SELFPAY ==
--- NOTE | 2025-05-15 11:27 | A.OFFVIS_ITS ---
Vital Signs 05/15/25 11:29 Height 5 ft 1 in Weight 140 lb BMI 26.4 Intake Visit Reasons: Est Patient-EMG review Intake Note: Kenna is a 59 year old right hand dominant female who presents today for an EMG/NCS review of her left hand. Patient also mentioned she is having right thumb pain for the last 3 weeks. No injury. EMG/NCS done on 05/01/2025 IMPRESSION: 1. This is an abnormal study. 2. 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 3. There are some findings suggestive for left ulnar neuropathy at the elbow. CLINICAL COMMENT: Her symptoms are suggestive of ulnar neuropathy although results above are mild. Still findings of left Carpal Tunnel Syndrome although she denies symptoms. No previous EMG available for my review. Allergies prednisone Allergy (Verified 05/20/25 06:18) Palpitations Amytryplines Allergy (Unknown, Uncoded 05/15/25 11:30) heart palpations Z-packs Allergy (Unknown, Uncoded 05/15/25 11:30) Hives cins antibiotics Allergy (Uncoded 05/20/25 06:18) Hives HPI HPI Est Patient-EMG review: Details: Kenna is a 59 year old right hand dominant female who presents today for an EMG/NCS review of her left hand. Patient also mentioned she is having right thumb pain for the last 3 weeks. No injury. EMG/NCS done on 05/01/2025 IMPRESSION: 1. This is an abnormal study. 2. 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 3. There are some findings suggestive for left ulnar neuropathy at the elbow. CLINICAL COMMENT: Her symptoms are suggestive of ulnar neuropathy although results above are mild. Still findings of left Carpal Tunnel Syndrome although she denies symptoms. No previous EMG available for my review. [facility] Medical History (Updated 05/20/25 @ 06:46 by CHRIS Byrd) HTN (hypertension) Surgical History H/O: hysterectomy History of meniscectomy of left knee History of arthroscopy of left shoulder Hx of decompression of ulnar nerve History of bilateral carpal tunnel release Social History (Updated 01/29/25 @ 09:33 by TONEY Muñoz Patient Tobacco Use Status: Former Tobacco user Use of substances other than those prescribed or required for medical reasons: Yes Substance Use Type Other:: ld 05/19-smoked Substance Use Frequency: Occasionally Are you DNR?: No Advance Directives: No Advance Directives Information Provided: Yes Current occupational status: employed 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 Physical Exam Vital Signs: BMI result Body Mass Index 26.4 Const General: cooperative, healthy appearing and no acute distress Orientation/consciousness: patient oriented x3 HEENT Head: Yes normocephalic and Yes atraumatic Eyes EOM: EOMs intact bilaterally Resp Effort & Inspection: normal respiratory effort and able to speak in complete sentences Cardio Jugular venous distension: no JVD Skin General skin exam: turgor normal Rashes: no rashes Neuro General: patient oriented x3 Extrem Other: Evaluation of Left Upper Extremity: The patient is alert, oriented, and in no acute distress Neuro: Decreased subjective sensation dorsal ulnar aspect of the hand, extend ing to the small & ring fingers Normal sensation in the thumb & index fingers Normal sensation to the pads of all fingers Vascular: Cap refill brisk ROM: With encouragement She can make a fist and extend all her digits Good elbow ROM without pain Skin: No lacerations or abrasions or evidence of open fracture General: No ecchymosis. Resolved swelling over the dorsal central aspect of her wrist No Erythema or evidence of infection. Psych Appearance: grossly normal Affect: normal affect Attitude: cooperative Assessment & Plan Assessment & Plan (1) Cubital tunnel syndrome on left: Code(s): G56.22 - Lesion of ulnar nerve, left upper limb Category: Medical Plan 1. Left cubital tunnel syndrome Symptoms intermittent, daily, worse at night I educated the patient about the condition. I discussed both operative and nonoperative treatment options. The patient would like to proceed with surgery. The risks and benefits of operative treatment were discussed with the patient and the patient wishes to proceed with surgery. These risks include, but are not limited to, risk of damage to blood vessels, nerves, tendons, infection, recurrence, incomplete relief of preoperative symptoms, persistent pain, po ssible need for further surgery, and the risks associated with regional blocks and/or anesthesia. Plan is to take the patient to the operating room at some point in the next few weeks for the following procedures: 1. Left cubital tunnel release All of the preoperative paperwork including the consent was discussed today. All of the patient's questions were answered in the clinic today. The patient understands that they will be in contact with our director medical surgical to discuss scheduling their procedure. Patient denies diabetes, blood thinners, asthma, heart issues, lung issues, kidney issues, or current smoking. Coding Level of Care Code Est Pt Level 4 (94929) Diagnoses Cubital tunnel syndrome on left G56.22
[2025-05-15 11:29] VITALS: BMI 26.4
--- OUTSIDE RECORDS SUMMARY | 2025-05-15 13:35 | XMS_ITS | Encounter Summary ---
Author Organization [employer] Address [address] [place] [address] [address] [place] [address] Care Team Providers Care Psychiatric Orderly Name Role Phone Fela Grajeda MD Primary Care Provider [phone] Encounter Details Date Type Department Care Team ([facility] st Contact Info) Description 10/16/2024 Orders Only [facility] MED & PEDS [address] [place] [address] Fela Grajeda MD [address] [place] [address] Macrocytosis (Primary Dx) Social History Tobacco Use [...] EDT Narrative 11/03/2024 11:24 AM EDT [facility] [address] [place] [address] Mammography Report Signed Patient: Kenna Guzman MR#: [id number] 36 : 1965 Acct:[id number] Age/Sex: 59 / F ADM Date: 10/24/24 Loc: MAMMO Attending Dr: Fela Grajeda MD Ordering Physician: Fela Grajeda MD Results: 1 Negative Date of Service: 10/24/24 Follow Up: 1 Year From Orig ina Mammogram Procedure(s): MM tomosynthesis screening BI Accession Number(s): [id number] cc: Fela Grajeda MD EXAMINATION: MM SCREENING [...] 11/03/24 1121 DD/ 0745 TD/TT: 10/24/24 0755 Laundry Tub Maker: Procedure Note Donotuseinterpreter, Image - 11/03/2024 [facility] [address] [place], [place] [address] Mammography Report Signed Patient: Kenna GuzmanMR#: [id number] 36 : 1965Acct:[id number] Age/Sex: 59 / FADM Date: 10/24/24 Loc: MAMMO Attending Dr: Fela Grajeda MD Ordering Physician: Fela Grajeda MDResults: 1 Negative Date of Service: 10/24/24Follow Up: 1 Year From Orig inal Mammogram Procedure(s): MM tomosynthesis screening BI Accession Number(s): [id number] cc: Fela Grajeda MD EXAMINATION: MM SCREENING [...] 11/03/24 1121 DD/ 0745 TD/TT: 10/24/24 0755 Laundry Tub Maker: Fela Grajeda MD IMG BI PROCEDURES Edited Re sult - Final documented in this encounter Visit Diagnoses Diagnosis Macrocytosis- Primary Other specified diseases of blood and blood-forming organs documented in this encounter Additional Health Concerns Assessment Noted Time PHQ-9 Depression Total Score: 7 10/16/19 25 9:53 AM EDT documented as of this encounter Care Teams Psychiatric Orderly Relationship Specialty Start Date End Date Fela Grajeda MD [address] [place] [address] PCP - General Internal Medicine 07/11/18 documented as of this encounter
--- OUTSIDE RECORDS SUMMARY | 2025-05-15 13:35 | XMS_ITS | Encounter Summary ---
Author Organization [employer] Address [address] [place] [address] Care Team Providers Care Cost Specialist Name Role Phone Fela Grajeda MD Primary Care Provider [phone] Reason for Visit * Reason Onset Date Comments Med Refill 03/07/2025 Encounter Details Date Type Department Care Team ([facility] st Contact Info) Description 03/07/2025 Telephone [facility] MED [facility] PEDS [address] [place] [address] Fela Grajeda MD [address] [place] [address] Med Refill Social History Tobacco Use Types [...] 50 MG tablet To be sent to: [facility] - [place], [place] - [address] [place] [address] St documented in this encounter Plan of Treatment Not on file documented as of this encounter Visit Diagnoses Not on filedocumented in this encounter Additional Health Concerns Assessment Noted Time PHQ-9 Depression Total Score: 7 10/16/19 9:53 AM EDT documented as of this encounter Care Teams Cost Specialist Relationship Specialty Start Date End Date Fela Grajeda MD [address] [place] [address] PCP - General Internal Medicine 07/11/18 documented as of this encounter
--- OUTSIDE RECORDS SUMMARY | 2025-05-15 13:35 | XMS_ITS | Encounter Summary ---
Author Organization [employer] Address [address] [facility] [address] [place] [address] Care Team Providers Care Value Advisor Name Role Phone Fela Grajeda MD Primary Care Provider [phone] Encounter Details Date Type Department Care Team ([facility] st Contact Info) Description 03/01/2025 Orders Only [facility] MED & PEDS [address] [place], [place] [phone] Fela Grajeda MD [address] [place] [address] Primary hypertension (Primary Dx) Social History Tobacco [...] documented as of this encounter Care Teams Value Advisor Relationship Specialty Start Date End Date Fela Grajeda MD [address] [place] [id number] PCP - General Internal Medicine 07/11/18 documented as of this encounter
--- OUTSIDE RECORDS SUMMARY | 2025-05-15 13:35 | XMS_ITS | Encounter Summary ---
Author Organization [employer] Address [address] [facility] [address] [place] [address] Care Team Providers Care Museum Registrar Name Role Phone Fela Grajeda MD Primary Care Provider [phone] Encounter Details Date Type Department Care Team ([facility] st Contact Info) Description 04/10/2025 Orders Only [facility] MED & PEDS [address] [place], [place] [phone] Fela Grajeda MD [address] [place] [address] Primary hypertension (Primary Dx) Social History Tobacco [...] documented as of this encounter Care Teams Museum Registrar Relationship Specialty Start Date End Date Fela Grajeda MD [address] [place] [address] PCP - General Internal Medicine 07/11/18 documented as of this encounter
--- OUTSIDE RECORDS SUMMARY | 2025-05-15 13:35 | XMS_ITS | Data Portability ---
Author Organization [place] - [facility], Allergy Address [address] [address] Care Team Providers Care Dispensing Audiologist Name Role Phone INDU ROPER Referring Provider [...] CANAL, W/WO CONTRAST 2024 025 [facility] ([facility]), [address] [place], [address], 13:51:40 CT, sinuses, w/o contrast 2024 025 [facility], [address], [address], 22:36:09 Medication Orders ofloxacin 0.3 % ear drops 2024 025 [facility] #[id number], [address] [place], [address], 10:14:11 gabapentin 300 mg capsule 2024 025 [facility] #[id number], [address] [place], [address], 10:16:39 Patient TargetsNo targets recorded. Patient InstructionsNo instructions recorded. Reason for Referral None Reported. Results Created Date Observation Date Name Description Value Unit Range Abnormal Flag Note LastModifiedBy Organization Detail LastModifiedTime 08/04/1908/02/2024 CT, sinus es, w/o contr ast No observ ation record ed. [email or web address] [facility] [address], [address], 08/08/2024 12:48:39 08/04/1908/02/2024 CT, sinus es, w/o contr ast No observ ation record ed. MERRITT [facility] [address], [address], 08/08/2024 12:47:16 08/16/1908/15/2024 MRI, brain + brain stem, w/wo contr ast [facility] Access ion Number : [id number] Mike holly Name: Guzman , Kathry n Medica l Record Number : [id number] Date of : 1965 Date of Exam: 2024 Referr ing Physic paris: [facility] [address], [place] [address] [place] [address] Exam: MR Brain (C-/C+ ) CPT 77328 Room Descri ption: [place] [facility]io 3.0T INDICA TION: Left ear tinnit us TECHNI QUE: Multip lanar multis equenc e MRI of the brain using an IAC protoc ol was perfor med before and after the admini strati on of 10 mL of Dotare m. 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 The visual ized brain is unrema rkable . The visual ized ventri cles and sulci normal . The midlin e the struct ures, main vascul ar flow voids, and basal cister ns are normal . There is fluid in inferi or left mastoi d air cells. 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 Small left mastoi d effusi on. Electr onical ly Signed By: Nicolasa TREVINO [facility] ([facility]) [address], [place], [address], 08/20/2024 12:58:05 08/20/19 25 audio gram No observ ation record ed. BARCODE Not Available 2024 15:37:28 Result Notes Documentation Provider Name and Address Organization Details Recorded Time Mri, Brain + Brain Stem, W/wo Contrast : [facility] Accession Number: [id number] Patient Name: Kenna Guzman Date of : 1965 Date of Exam: 08-15-2024 Referring Physician: Cesar Mishra [facility] [address] [address] Exam: MR Brain (C-/C+) CPT 64168 Room Description: [facility] 3.0T INDICATION: Left ear tinnitus TECHNIQUE: [...] effusion. Electronically Signed By: Nicolasa MISHRA MD [address] [place] [address], [phone], [facility] 08/20/2024 12:52:57 Problems Name Problem SNOMED Code Status Onset Date Resolution Date Notes Provider Name and Address Organization Details Recorded Time Atypical facial pain 53992036 Active 2024 CESAR MISHRA MD [address] [place] [address], [phone], [facility] - [facility] 5 14:05:05 Sensorineur al hearing loss of bilateral ears 164974313 Active 2024 ETHEL MURRAY [address] [place] [address], [phone], [facility] - [facility] 5 10:49:21 Tinnitus of left ear 9041735124559 Active 2024 CESAR MISHRA MD [address] [place], [place] [address], [place], [address], [facility] [place] 5 11:16:45 Chronic rhinitis 21567302 Active 2024 CESAR MISHRA MD 100 [facility], [facility], [place], [address], [facility] - [facility] 5 11:17:09 Non-allergi c rhinitis 655344507066 Active 2024 CESAR MISHRA MD 100 [facility], [facility], [place], [address], [facility] - [facility] [place] 5 11:17:20 Allergic rhinitis 10795932 Active 2024 CESAR MISHRA MD 100 [facility], [facility], [place], [address], [facility] - [facility] [place] 5 11:17:20 Seasonal allergic rhinitis 392797229 Active 2024 CESAR MISHRA MD 100 [facility], [facility], [place], [address], [facility] - [facility] 5 11:17:20 Disorder of left Eustachian tube 5943582723062 109 Active 2024 CESAR MISHRA MD 100 [facility], [facility], [place], [address], [facility] [place] 5 16:05:15 Problem Notes None recorded. Procedures Surgical History Date Name Laterality Status Provider Name and Address Organization Details Recorded Time 08/30/19 25 Myringotomy with Aspiration left completed CESAR MISHRA MD 100 [facility],[place] [address], [place], [address], [facility] 09/02/2024 17:24:11 08/10/19 25 Comp Audio with Tymps - 99656 & 45733 completed ETHEL MURRAY 100 [facility],[place] [address], [place], [address], [facility] - [facility] 08/10/2024 10:48:45 07/27/19 25 JMSNasal/Sinus Endoscopy completed CESAR MISHRA MD 100 [facility],[address], [address], [facility] 07/27/2024 14:04:54 hysterectomy completed CESAR MISHRA MD 100 [facility],[address], [address], [facility] 07/27/2024 13:31:56 Imaging Results None recorded. Procedure Notes None recorded. Medical Equipment None Reported. Allergies Allergen ID Allergen Name Allergen Category Reaction Reaction Severity Criticality Documentation Date Start Date Code Code System Note Provider Name and Address Organization Details Recorded Time 356907 azithromy segun medicatio n Not available Not available Not available 07/27/2024 37902 RxNorm Jenny Potvin [place] - [facility] 13:23:14 511537 amitripty line medicatio n Not available Not available Not available 07/27/2024 704 RxNorm Jenny Potvin null, [facility] 13:23:23 173456 clindamyc in Not available Not available Not available Not available 07/27/2024 2582 RxNorm Jenny Potvin null, [facility] 13:23:39 115537 prednison e medicatio n Not available Not available Not available 07/27/2024 8640 RxNorm Jenny Potvin [place], [place] [facility] 13:23:49 406736 rofecoxib medicatio n Not available Not available Not available 07/27/2024 35358 8 RxNorm Jenny Potvin null, [facility] 5 13:24:01 569388 Substance with macrolide structure and antibacte rial mechanism of action (substanc e) medicatio n Not available Not available Not available 07/27/2024 27876 0009 SNOMED Jenny Potvin null, [place] - [facility] 5 13:24:13 497485 erythromy segun medicatio n Not available Not available Not available 07/27/2024 4053 RxNorm Jenny Carter [place] [facility] [place] 5 13:24:35 831031 nortripty line medicatio n Not available Not available Not available 07/27/2024 7531 RxNorm Jenny [place], [place] [facility] 13:24:44 626370 hydralazi ne medicatio n Not available Not available Not available 07/27/2024 5470 RxNorm Jenny Raul null, [place] [facility] 5 13:24:53 438873 hydrochlo rothiazid e medicatio n Not available Not available Not available 07/27/2024 5487 RxNorm Jenny [place], [place] [facility] 13:25:10 866316 fluconazo le medicatio n Not available Not available Not available 07/27/2024 4450 RxNorm Jenny Carter [place] [facility] 13:25:22 Medications Name Sig Start Date [...] Updated DateTime 07/27/2024 154.94 cm 26.5 kg/m2 80381.93 g Jenny Carter [place] - [facility] 07/27/2024 13:20:28 Date Recorded Body height Body mass index (BMI) Body weight Provider Name and Address Organization Details Last Updated DateTime 08/10/2024 154.94 cm 26.3 kg/m2 58760.34 g Jenny Carter [place] [facility] 08/10/2024 10:16:23 Date Recorded Body height Body mass index (BMI) Body weight Provider Name and Address Organization Details Last Updated DateTime 08/30/2024 154.94 cm 26.6 kg/m2 42991.52 g Jenny Carter [place] [facility] 08/30/2024 15:50:20 Date Recorded Body height Body mass index (BMI) Body weight Provider Name and Address Organization Details Last Updated DateTime 09/28/2024 154.94 cm 26.6 kg/m2 20168.52 g Jenny Carter [place] [facility] 09/28/2024 10:14:01 Social History Question Answer Notes LastModified by Organizat ion Details LastModified Time Tobacco Smoking Status Former Smoker CESAR MISHRA MD [address] [place] [address], [address], [facility] - [facility] 07/27/2024 13:31:44 When Did You Quit [...] ICD10 Code Diagnosis IMO Codes Diagnosis Note [id number] CESAR MISHRA MD [facility] [address] [address] 07/27/2024 13:16:55 07/27/2024 14:09:51 Atypical facial pain 74204760 G50.1 No evidence of bacterial infection on [...] s, but agrees to try gabapentin again. 11452 CESAR MISHRA MD [facility] [address] [address] 08/10/2024 10:10:09 08/10/2024 13:04:08 Sensorineural hearing loss of bilateral ears 639131639 H90.3 Audiologic al evaluation results: Right ear: Essentiall y normal hearing with the exception of a moderately -severe SNHL at 8000Hz with excellent word recognitio n. Left ear: Essentiall y normal sloping to moderately severe sensorineu ral hearing loss with excellent word recognitio n. Tympanomet ry: Right Ear:Type Ad Left Ear:Type A Tinnitus of left ear 805 8323549 106 H93.12 Chronic rhinitis 8554759 6 J31.0 [id number] CESAR MISHRA MD [facility] [address] [address] 08/30/2024 15:44:37 08/30/2024 16:11:56 Disorder of left Eustachian tube 8414293549 163051 H69.92 59-year-ol d female with left-sided head [...] does, we can proceed with tube placement. [id number] CESAR MISHRA MD [facility] [address] [address] 09/28/2024 09:50:16 09/28/2024 10:28:10 Disorder of left Eustachian tube 7187238799 287488 H69.92 Symptoms are markedly improved after myringotom [...] Member ID Guarantor Name 11/16/2024 1 LOLI [id number] Kenna Guzman [id number] 1 Kenna Guzman Notes Date Note Type Note Provider Name and Address Organization Details Recorded Time 5 text/html ROS as noted in the HPI 59 yo F with acute sinus symptoms. started itching in the earheadachestinnitus on the left Had XR at [place] which looked normal left extending to ear cough betterno meds now a couple abx but did not help augmentin and then a second with steroidoriginally infected tooth, now a new root canal mandibular usually 3-4 sinus infections per year here 10 years ago (Kenna Nielsen chart [id number]) CT negativeBeer and mold positive for allergy testing , has been on flonase prednisone allergynortriptyline allergygabapentin did not seem to help in past has been on sudafed and mucinex CESAR MISHRA MD [address] [place] [address], [phone], [facility] - [facility] 08/08/2024 12:44:27 5 text/html ROS as noted in the HPI No improvement in symptoms. She is very distressed by her symptoms. PV: 59 yo F with acute sinus symptoms. started itching in the earheadachestinnitus on the left Had XR at [place] which looked normal left extending to ear cough betterno meds now a couple abx but did not help augmentin and then a second with steroidoriginally infected tooth, now a new root canal mandibular usually 3-4 sinus infections per year here 10 years ago (Kenna Nielsen chart 958339) CT negativeBeer and mold positive for allergy testing , has been on flonase prednisone allergynortriptyline allergygabapentin did not seem to help in past has been on sudafed and mucinex CESAR MISHRA MD 100 [facility],[address], [address], [place] - [facility] 08/14/2024 08:32:26 5 text/html 59-year-old female presents today for follow-up. Her MRI did not show any concerning findings, but did show some fluid in a few of the left sided air cells. CESAR MISHRA MD 100 [facility],[address], [address], [place] [facility] 09/02/2024 17:25:28 5 text/html ROS as noted in the HPI Dizziness is gone, pressure 80% better.Second drops made a difference in the ear almost immediately. CESAR MISHRA MD 100 [facility],[place] [address], [place], [address], [place] [facility] 09/28/2024 10:29:29 OBGyn Episode No OBEpisode recorded.
--- OUTSIDE RECORDS SUMMARY | 2025-05-15 13:35 | XMS_ITS | Clinical Summary ---
Author Organization [employer] Address [address] [place] [address] [address] [place] [address] Care Team Providers Care Telephone Cleaner Name Role Phone Fela Grajeda MD Primary Care Provider [phone] Allergies Active Allergy Reactions Criticality Noted Date [...] Encounters Date Type Department Care Team Description 05/02/2025 Orders Only [facility] [address] [place] [address] Fela Grajeda MD Other fatigue (Primary Dx) 05/02/2025 Telephone [facility] [address] [place] [address] Fela Grajeda MD Medication Question 04/15/2025 Telephone [facility] [address] [place], [place] [phone] Fela Grajeda MD Medication Question 04/10/2025 Orders Only [facility] [address] [place], [place] [phone] Fela Grajeda MD Primary hypertension (Primary Dx) 04/08/2025 Telephone [facility] [address] [place] [address] Fela Grajeda MD Medication Question 03/24/2025 Refill [facility] [address] [place] [address] Elizabeth Ravi MD 03/07/2025 Telephone [facility] [address] [place] [address] Fela Grajeda MD Med Refill 03/01/2025 Telephone [facility] [address] [place] [address] Fela Grajeda MD 03/01/2025 Orders Only [facility] [address] [place] [address] Fela Grajeda MD Primary hypertension (Primary Dx) 02/19/2025 3:15 PM EDT Office Visit [facility] [address] [place] [address] Fela Grajeda MD Primary hypertension (Primary Dx); Dietary counseling; Exercise counseling; Overweight 02/19/2025 Travel 02/18/2025 Travel from Last 3 Months Immunizations Immunization Administration [...] Tobacco Screening 02/20/2026 02/20/2025 Mammogram 10/24/2026 10/24/2024, 04, 10/12/2022, Additional history exists Colonoscopy 10/03/2028 Colorectal [...] AM EDT Narrative 11/03/2024 11:24 AM EDT [facility] [address] [place] [address] Dr. Godoy, [place] [address] Mammography Report Signed Patient: Kenna Guzman MR#: [id number] 36 : 1965 Acct:[id number] Age/Sex: 59 / F ADM Date: 10/24/24 Loc: HO.MAMMO Attending Dr: Fela Grajeda MD Ordering Physician: Fela Grajeda MD Results: 1 Negative Date of Service: 10/24/24 Follow Up: 1 Year From Orig inal Mammogram Procedure(s): MM tomosynthesis screening BI Accession Number(s): [id number] cc: Fela Grajeda MD EXAMINATION: MM SCREENING [...] 11/03/24 1121 DD/ 0745 TD/TT: 10/24/24 0755 Web Content Executive: Procedure Note Donotuseinterpreter, Image - 11/03/2024 [facility] [address] Godoy, [place] [address] Mammography Report Signed Patient: Kenna GuzmanMR#: [id number] 36 : 1965Acct:[id number] Age/Sex: 59 / FADM Date: 10/24/24 Loc: HO.MAMMO Attending Dr: Fela Grajeda MD Ordering Physician: Fela Grajeda MDResults: 1 Negative Date of Service: 10/24/24Follow Up: 1 Year From Orig inal Mammogram Procedure(s): MM tomosynthesis screening BI Accession Number(s): [id number] cc: Fela Grajeda MD EXAMINATION: MM SCREENING [...] 11/03/24 1121 DD/ 0745 TD/TT: 10/24/24 0755 Web Content Executive: Fela Grajeda MD IM BI PROCEDURES Edited Re sult - Final * HIV-1/2 Antigen and Antibodies, Fourth Generation, with Reflexes (10/15/2024 10:09 AM EDT) HIV AB/AG Nonreactive Nonreactive [facility] Comment:HIV-1 p24 Ag and/or HIV-1/HIV-2 Ab not detected.A test result that is nonreactive does not exclude thepossibility of exposure to or infection with HIV-1 and/orHIV-2. Nonreactive results in this assay for individualswith prior exposure to HIV-1 and/or HIV-2 may be due toantigen and antibody levels that are below the limit ofdetection of this assay.The [employer] HIV Ag/Ab Combo assay result andsupplemental assay results should be interpreted inconjunction with the patient's clinical presentation,history and other laboratory results. If the results areinconsistent with clinical evidence, additional testing issuggested to confirm the result. Blood Venous blood specimen / Unknown 10/15/2024 10:09 AM EDT 10/15/2024 1:56 PM EDT us Fela Grajeda MD LAB BLOOD ORDERABLES Final Result Performing Organization Address [facility] Co de Phone Number [facility] [address] [place] [phone] * (ABNORMAL) Lipid Panel, Standard (10/15/2024 10:04 AM EDT) Triglycerides 55 <150 mg/dL [facility] Comment:Desirable Triglyceri de: less than 150 mg/dLBorderline High Triglyceride 150-199 mg/dLHigh Triglyceride: 200-499 mg/dLVery High Triglyceride: greater than or equal to 5OO mg/dL Cholesterol 236(H) <200 mg/dL [facility] Comment:Desirable Cholestero l: less than 200 mg/dLBorderline High Cholesterol: 200-239 mg/dLHigh Cholesterol: greater than 239 mg/dL LDL Cholesterol Calculated 140(H) <100 mg/dL [facility] Comment:Desirable LDL: less than 100 mg/dLNear Optimal/Above Optimal LDL: 110- 129 mg/dLBorderline High LDL: 130-159 mg/dLHigh LDL: 160-189 mg/dLVery High LDL: greater than or equal to 190 mg/dL HDL Cholesterol 85 >40 mg/dL [facility] Comment:Desirable HDL: great er than 40 mg/dL Note: This HDL assay may give artificially low results in patients with liver disease. Blood Venous blood specimen / Unknown 10/15/2024 10:04 AM EDT 10/15/2024 1:56 PM EDT us Fela Grajeda MD LAB BLOOD ORDERABLES Final Result Performing Organization Address [facility] Co de Phone Number [facility] [address] [place] [address] [phone] * HEPATITIS C AB W/REFL TO HCV RNA, QN, PCR (07/13/2021 9:22 AM EST) HEPATITIS C ANTIBODY NON-REACT CAIO NON-REACT CAIO [facility] INDEX 0.01 <1.00 [facility] Comment: HCV antibody was non-reactive. There is no laboratory evidence of HCV infection. In most cases, no further action is required. However, if recent HCV exposure is suspected, a test for HCV RNA (test code 84716) is suggested. For additional information please refer to http://education.[employer]/faq/GXL53s4 (This link is being provided for informational/ educational purposes only.) 07/13/2021 9:22 AM EST us Fela Grajeda MD HISTORICAL/NON ORDERABLE JULIAN SANFORD Final Result [facility] [address] from Last 3 Months or Most Recently Relevant to Health Maintenance Insurance [employer] Care Teams Telephone Cleaner Relationship Specialty Start Date End Date Fela Grajeda MD [address] [place] [address] PCP - General Internal Medicine 07/11/18
--- OUTSIDE RECORDS SUMMARY | 2025-05-15 13:35 | XMS_ITS | Encounter Summary ---
Author Organization [employer] Address [address] [place] [address] [address] [place] [address] Care Team Providers Care Manager Enterprise Content Management Name Role Phone Fela Grajeda MD Primary Care Provider [phone] Encounter Details Date Type Department Care Team ([facility] st Contact Info) Description 05/02/2025 Orders Only [facility] [address] [place], [place] [phone] Fela Grajeda MD [address] [place] [address] Other fatigue (Primary Dx) Social History Tobacco Use Types [...] the past 12 months, has t he [employer], gas, oil or water company threatened to [...] r Schedule CBC auto differential Lab Routine Other fatigue Expected: 05/02/2025 (Approximate), Expires: 05/02/2026 Comprehensive Metabolic Panel Lab Routine Other fatigue Expected: 05/02/2025 (Approximate), Expires: 05/02/2026 TSH W/Reflex to FT4 Lab Routine Other fatigue Expected: 05/02/2025 (Approximate), Expires: 05/02/2026 Magnesium Lab Routine Other fatigue Expected: 05/02/2025, Expires: 05/02/2026 Vitamin B12/Folate, Serum Panel Lab Routine Other fatigue Expected: 05/02/2025, Expires: 05/02/2026 Vitamin D, 25-Hydroxy, Total, Immunoassay Lab Routine Other fatigue Expected: 05/02/2025 (Approximate), Expires: 05/02/2026 documented as of this encounter Visit Diagnoses Diagnosis Other fatigue- Primary documented in this encounter Additional Health Concerns Assessment Noted Time PHQ-9 Depression Total Score: 7 10/16/19 25 9:53 AM EDT documented as of this encounter Care Teams Manager Enterprise Content Management Relationship Specialty Start Date End Date Fela Grajeda MD [address] [place] [address] PCP - General Internal Medicine 07/11/18 documented as of this encounter
--- OUTSIDE RECORDS SUMMARY | 2025-05-15 13:35 | XMS_ITS | Clinical Summary ---
Author Organization [facility] Address [address] [place] [address] Care Team Providers Care Manager Marketing Communication Name Role Phone Unavailable Primary Care Provider [...]
--- OUTSIDE RECORDS SUMMARY | 2025-05-15 13:36 | XMS_ITS | Clinical Summary ---
Author Organization [facility] Address [address] [place] [address] Care Team Providers Care Radio Director Name Role Phone Unknown, Primary Care Provider [...] age to complete this topic Care Teams Radio Director Relationship Specialty Start Date End Date Unknown, PCP - General 09/09/21
--- OUTSIDE RECORDS SUMMARY | 2025-05-15 13:36 | XMS_ITS | Encounter Summary ---
Author Organization [employer] Address [address] [place] [address] Care Team Providers Care Burnisher And Bumper Name Role Phone Fela Grajeda MD Primary Care Provider [phone] Reason for Visit * Reason Comments Med Refill Encounter Details Date Type Department Care Team ([facility] Contact Info) Description 01/09/2024 Refill [facility] & PEDS [address] [place] [address] Fela Grajeda MD [address] [place] [address] Seasonal allergies Social History Tobacco Use Types [...] documented as of this encounter Care Teams Burnisher And Bumper Relationship Specialty Start Date End Date Fela Grajeda MD [address] [place] [address] PCP - General Internal Medicine 07/11/18 documented as of this encounter
--- OUTSIDE RECORDS SUMMARY | 2025-05-15 13:36 | XMS_ITS | Encounter Summary ---
Author Organization [employer] Address 75 [facility] 7 [place] [address] Care Team Providers Care Contracting Specialist Name Role Phone Fela Grajeda MD Primary Care Provider [phone] Encounter Details Date Type Department Care Team ([facility] st Contact Info) Description 11/01/2024 Orders Only [facility] CHC MED & PEDS [address] [place], [place] [phone] Fela Grajeda MD [address] [place] [address] Social History Tobacco Use Types Packs/Day Years [...] documented as of this encounter Care Teams Contracting Specialist Relationship Specialty Start Date End Date Fela Grajeda MD [address] [place] [address] PCP - General Internal Medicine 07/11/18 documented as of this encounter
== END 2025-05-15 12:06 | disposition home or self-care (01) ==
LOC: HO.HOS 11:11
PROVIDERS: PCP Internal Medicine
DX: G56.22 Lesion of ulnar nerve, left upper limb (principal)
CPT/HCPCS: 99214

== ENCOUNTER 2025-05-20 05:46 | Day surgery (SDC) | payer OTHER, SELFPAY ==
--- OUTSIDE RECORDS SUMMARY | 2025-05-16 18:03 | XMS_ITS | Encounter Summary ---
Author Organization [employer] Address 75 [facility] 7 [place] [address] Care Team Providers Care Channeler Insole Name Role Phone Fela Grajeda MD Primary Care Provider [phone] Encounter Details Date Type Department Care Team ([facility] st Contact Info) Description 04/10/2025 Orders Only [facility] CHC MED & PEDS [address] [place], [place] [phone] Fela Grajeda MD [address] [place] [address] Primary hypertension (Primary Dx) Social History Tobacco [...] documented as of this encounter Care Teams Channeler Insole Relationship Specialty Start Date End Date Fela Grajeda MD [address] [place] [address] PCP - General Internal Medicine 07/11/18 documented as of this encounter
--- OUTSIDE RECORDS SUMMARY | 2025-05-16 18:03 | XMS_ITS | Data Portability ---
Author Organization [place] [facility], Allergy Address [address] [address] Care Team Providers Care Pattern Drum Maker Name Role Phone INDU ROPER Referring Provider [phone] Assessment Encounter Date Assessment Date Assessment LastModified [...] INTERNAL AUDITORY CANAL, W/WO CONTRAST 2024 025 [facility] ([facility]), [address] [place], [address], 13:51:40 CT, sinuses, w/o contrast 2024 025 [facility], [address], [address], 22:36:09 Medication Orders ofloxacin 0.3 % ear drops 2024 025 [facility] #[id number], [address] [place], [address], 10:14:11 gabapentin 300 mg capsule 2024 025 [facility] #[id number], [address] [place], [address], 10:16:39 Patient TargetsNo targets recorded. Patient InstructionsNo instructions recorded. Reason for Referral None Reported. Results Created Date Observation Date Name Description Value Unit Range Abnormal Flag Note LastModifiedBy Organization Detail LastModifiedTime 08/04/1908/02/2024 CT, sinus es, w/o contr ast No observ ation record ed. [email or web address] [facility] [address], [address], 08/08/2024 12:48:39 08/04/1908/02/2024 CT, sinus es, w/o contr ast No observ ation record ed. HOWARD [facility] [address], [address], 08/08/2024 12:47:16 08/16/1908/15/2024 MRI, brain + brain stem, w/wo contr ast [facility] Access ion Number : [id number] holly Name: Guzman , Kathry n Medica l Record Number : [id number] Date of : 1965 Date of Exam: 2024 Referr ing Physic paris: [facility] [address], [place] [address] [place] [address] Exam: MR Brain (C-/C+ ) CPT 96765 Room Descri ption: Troy Siem Verio 3.0T INDICA TION: Left ear tinnit us TECHNI QUE: Multip lanar multis equenc e MRI of the brain using an IAC protoc ol was perfor med before and after the admini strati on of 10 mL of Dotare m. COMPAR GINI: No prior FINDIN GS: The bilate ral international freight forwarder al audito ry canals are normal in [...] al enhanc ement in the bilate ral international freight forwarder al audito ry canals . The visual ized brain is unrema rkable . The visual ized ventri cles and sulci normal . The midlin e the struct ures, main vascul ar flow voids, and basal cister ns are normal . There is fluid in inferi or left mastoi d air cells. IMPRES CIERRA: Unrema rkable bilate ral international freight forwarder al audito ry canals . Small left mastoi d effusi on. Electr onical ly Signed By: Nicolasa TREVINO [facility] ([facility]) [address], [place], [address], 08/20/2024 12:58:05 08/20/19 25 audio gram No observ ation record ed. BARCODE Not Available 2024 15:37:28 Result Notes Documentation Provider Name and Address Organization Details Recorded Time Mri, Brain + Brain Stem, W/wo Contrast : [facility] Accession Number: [id number] Patient Name: Kenna Guzman Date of : 1965 Date of Exam: 08-15-2024 Referring Physician: Cesar Mishra [facility] [address] [address] Exam: MR Brain (C-/C+) CPT 34668 Room Description: [facility] 3.0T INDICATION: Left ear tinnitus TECHNIQUE: [...] effusion. Electronically Signed By: Nicolasa MISHRA MD [address] [place] [address], [phone], [facility] 08/20/2024 12:52:57 Problems Name Problem SNOMED Code Status Onset Date Resolution Date Notes Provider Name and Address Organization Details Recorded Time Atypical facial pain 13980521 Active 2024 CESAR MISHRA MD [address] [place] [address], [phone], [facility] - [facility] 5 14:05:05 Sensorineur al hearing loss of bilateral ears 030664423 Active 2024 ETHEL MRURAY [address] [place] [address], [phone], [facility] - [facility] 5 10:49:21 Tinnitus of left ear 3722150255579 Active 2024 CESAR MISHRA MD [address] [place], [place] [address], [place], [address], [facility] - [facility] [place] 5 11:16:45 Chronic rhinitis 56720645 Active 2024 CESAR MISHRA MD 100 [facility], [facility], [place], [address], [facility] - [facility] [place] 5 11:17:09 Non-allergi c rhinitis 785527854638 Active 2024 CESAR MISHRA MD 100 [facility], [facility], [place], [address], [facility] - [facility] [place] 5 11:17:20 Allergic rhinitis 75259251 Active 2024 CESAR MISHRA MD 100 [facility], [facility], [place], [address], [facility] - [facility] [place] 5 11:17:20 Seasonal allergic rhinitis 006342289 Active 2024 CESAR MISHRA MD 100 [facility], [facility], [place], [address], [facility] - [facility] 5 11:17:20 Disorder of left Eustachian tube 4033601258274 109 Active 2024 CESAR MISHRA MD 100 [facility], [facility], [place], [address], [facility] [place] 5 16:05:15 Problem Notes None recorded. Procedures Surgical History Date Name Laterality Status Provider Name and Address Organization Details Recorded Time 08/30/19 25 Myringotomy with Aspiration left completed CESAR MISHRA MD 100 [facility],[place] [address], [place], [address], [facility] 09/02/2024 17:24:11 08/10/19 25 Comp Audio with Tymps - 55229 & 97389 completed ETHEL MURRAY 100 [facility],[place] [address], [place], [address], [facility] - [facility] 08/10/2024 10:48:45 07/27/19 25 JMSNasal/Sinus Endoscopy completed CESAR MISHRA MD [address] [facility],[address], [address], [facility] 07/27/2024 14:04:54 hysterectomy completed CESAR MISHRA MD 100 [facility],[address], [address], [facility] 07/27/2024 13:31:56 Imaging Results None recorded. Procedure Notes None recorded. Medical Equipment None Reported. Allergies Allergen ID Allergen Name Allergen Category Reaction Reaction Severity Criticality Documentation Date Start Date Code Code System Note Provider Name and Address Organization Details Recorded Time 357602 azithromy segun medicatio n Not available Not available Not available 07/27/2024 53485 RxNorm Jenny Potvin [place], [place] [facility] 13:23:14 996380 amitripty line medicatio n Not available Not available Not available 07/27/2024 704 RxNorm Jenny Potvin null, [facility] 13:23:23 492646 clindamyc in Not available Not available Not available Not available 07/27/2024 2582 RxNorm Jenny Potvin null, [facility] 13:23:39 804349 prednison e medicatio n Not available Not available Not available 07/27/2024 8640 RxNorm Jenny Potvin null, [place] [facility] 13:23:49 193502 rofecoxib medicatio n Not available Not available Not available 07/27/2024 39737 8 RxNorm Jenny Potvin null, [facility] 5 13:24:01 966150 Substance with macrolide structure and antibacte rial mechanism of action (substanc e) medicatio n Not available Not available Not available 07/27/2024 65302 0009 SNOMED Jenny Potvin null, [place] [facility] 5 13:24:13 594963 erythromy segun medicatio n Not available Not available Not available 07/27/2024 4053 RxNorm Jenny Carter [place], [place] [facility] [place] 5 13:24:35 091680 nortripty line medicatio n Not available Not available Not available 07/27/2024 7531 RxNorm Jenny wat[place], [place] [facility] 13:24:44 603548 hydralazi ne medicatio n Not available Not available Not available 07/27/2024 5470 RxNorm Jenny Raul null, [place] [facility] 5 13:24:53 142217 hydrochlo rothiazid e medicatio n Not available Not available Not available 07/27/2024 5487 RxNorm Jenny watkins, [place] [facility] 13:25:10 864435 fluconazo le medicatio n Not available Not available Not available 07/27/2024 4450 RxNorm Jenny Carter [place], [place] [facility] 13:25:22 Medications Name Sig Start Date [...] Updated DateTime 07/27/2024 154.94 cm 26.5 kg/m2 11074.93 g Jenny Carter [place] - [facility] 07/27/2024 13:20:28 Date Recorded Body height Body mass index (BMI) Body weight Provider Name and Address Organization Details Last Updated DateTime 08/10/2024 154.94 cm 26.3 kg/m2 93784.34 g Jenny Carter [place] [facility] 08/10/2024 10:16:23 Date Recorded Body height Body mass index (BMI) Body weight Provider Name and Address Organization Details Last Updated DateTime 08/30/2024 154.94 cm 26.6 kg/m2 35639.52 g Jenny Carter [place] [facility] 08/30/2024 15:50:20 Date Recorded Body height Body mass index (BMI) Body weight Provider Name and Address Organization Details Last Updated DateTime 09/28/2024 154.94 cm 26.6 kg/m2 21581.52 g Jenny Carter [place] [facility] 09/28/2024 10:14:01 Social History Question Answer Notes LastModified by Organizat ion Details LastModified Time Tobacco Smoking Status Former Smoker CESAR MISHRA MD [address] [place] [address], [address], [facility] - [facility] 07/27/2024 13:31:44 When Did You Quit [...] ICD10 Code Diagnosis IMO Codes Diagnosis Note [id number] CESAR MISHRA MD [facility] [address] [address] 07/27/2024 13:16:55 07/27/2024 14:09:51 Atypical facial pain 85275241 G50.1 No evidence of bacterial infection on [...] s, but agrees to try gabapentin again. [id number] CESAR MISHRA MD [facility] [address] [address] 08/10/2024 10:10:09 08/10/2024 13:04:08 Sensorineural hearing loss of bilateral ears 211996647 H90.3 Audiologic al evaluation results: Right ear: Essentiall y normal hearing with the exception of a moderately -severe SNHL at 8000Hz with excellent word recognitio n. Left ear: Essentiall y normal sloping to moderately severe sensorineu ral hearing loss with excellent word recognitio n. Tympanomet ry: Right Ear:Type Ad Left Ear:Type A Tinnitus of left ear 494 8622605 106 H93.12 Chronic rhinitis 0876026 6 J31.0 [id number] CESAR MISHRA MD [facility] [address] [address] 08/30/2024 15:44:37 08/30/2024 16:11:56 Disorder of left Eustachian tube 6417670977 460894 H69.92 59-year-ol d female with left-sided head [...] does, we can proceed with tube placement. [id number] CESAR MISHRA MD [facility] [address] [address] 09/28/2024 09:50:16 09/28/2024 10:28:10 Disorder of left Eustachian tube 2908540345 758765 H69.92 Symptoms are markedly improved after myringotom [...] Member ID Guarantor Name 11/16/2024 1 [id number] Kenna Guzman [id number] 1 Kenna Guzman Notes Date Note Type Note Provider Name and Address Organization Details Recorded Time 5 text/html ROS as noted in the HPI 59 yo F with acute sinus symptoms. started itching in the earheadachestinnitus on the left Had XR at [facility] which looked normal left extending to ear cough betterno meds now a couple abx but did not help augmentin and then a second with steroidoriginally infected tooth, now a new root canal mandibular usually 3-4 sinus infections per year here 10 years ago (Kenna Nielsen chart [id number]) CT negativeBeer and mold positive for allergy testing , has been on flonase prednisone allergynortriptyline allergygabapentin did not seem to help in past has been on sudafed and mucinex CESAR MISHRA MD [address] [place] [address], [address], [facility] - [facility] 08/08/2024 12:44:27 5 text/html ROS as noted in the HPI No improvement in symptoms. She is very distressed by her symptoms. PV: 59 yo F with acute sinus symptoms. started itching in the earheadachestinnitus on the left Had XR at [facility] which looked normal left extending to ear cough betterno meds now a couple abx but did not help augmentin and then a second with steroidoriginally infected tooth, now a new root canal mandibular usually 3-4 sinus infections per year here 10 years ago (Kenna Nielsen chart [id number]) CT negativeBeer and mold positive for allergy testing , has been on flonase prednisone allergynortriptyline allergygabapentin did not seem to help in past has been on sudafed and mucinex CESAR MISHRA MD 100 [facility],[address], [address], [place] - [facility] 08/14/2024 08:32:26 5 text/html 59-year-old female presents today for follow-up. Her MRI did not show any concerning findings, but did show some fluid in a few of the left sided air cells. CESAR MISHRA MD 100 [facility],[address], [address], [place] - [facility] 09/02/2024 17:25:28 5 text/html ROS as noted in the HPI Dizziness is gone, pressure 80% better.Second drops made a difference in the ear almost immediately. CESAR MISHRA MD [address] [facility],[place] [address], [place], [address], [place] [facility] 09/28/2024 10:29:29 OBGyn Episode No OBEpisode recorded.
--- OUTSIDE RECORDS SUMMARY | 2025-05-16 18:03 | XMS_ITS | Encounter Summary ---
Author Organization [employer] Address [address] [place] [address] 7 [place] [address] Care Team Providers Care Graphic Arts Instructor Name Role Phone Fela Grajeda MD Primary Care Provider [phone] Encounter Details Date Type Department Care Team ([facility] st Contact Info) Description 10/16/2024 Orders Only [facility] MED & P[facility]S [address] [place] [address] Fela Grajeda MD [address] [place] [address] Macrocytosis (Primary Dx) Social History Tobacco Use [...] EDT Narrative 11/03/2024 11:24 AM EDT [facility] [address] [place] [address] Mammography Report Signed Patient: Kenna Guzman MR#: [id number] 36 : 1965 Acct:[id number] Age/Sex: 59 / F ADM Date: 10/24/24 Loc: MAMMO Attending Dr: Fela Grajeda MD Ordering Physician: Fela Grajeda MD Results: 1 Negative Date of Service: 10/24/24 Follow Up: 1 Year From Orig ina Mammogram Procedure(s): MM tomosynthesis screening BI Accession Number(s): [id number] cc: Fela Grajeda MD EXAMINATION: MM SCREENING [...] 11/03/24 1121 DD/ 0745 TD/TT: 10/24/24 0755 Line Maintenance Supervisor: Procedure Note Donotuseinterpreter, Image - [facility]/03/20[facility] [address] [place], [place] [address] Mammography Report Signed Patient: Kenna GuzmanMR#: [id number] 36 : 1965Acct:[id number] Age/Sex: 59 / FADM Date: 10/24/24 Loc: MAMMO Attending Dr: Fela Grajeda MD Ordering Physician: Fela Grajeda MDResults: 1 Negative Date of Service: 10/24/24Follow Up: 1 Year From Orig inal Mammogram Procedure(s): MM tomosynthesis screening BI Accession Number(s): [id number] cc: Fela Grajeda MD EXAMINATION: MM SCREENING [...] 11/03/24 1121 DD/ 0745 TD/TT: 10/24/24 0755 Line Maintenance Supervisor: Fela Grajeda MD IMG BI PROCEDURES Edited Re sult - Final documented in this encounter Visit Diagnoses Diagnosis Macrocytosis- Primary Other specified diseases of blood and blood-forming organs documented in this encounter Additional Health Concerns Assessment Noted Time PHQ-9 Depression Total Score: 7 10/16/19 25 9:53 AM EDT documented as of this encounter Care Teams Graphic Arts Instructor Relationship Specialty Start Date End Date Fela Grajeda MD [address] [place] [address] PCP - General Internal Medicine 07/11/18 documented as of this encounter
--- OUTSIDE RECORDS SUMMARY | 2025-05-16 18:03 | XMS_ITS | Clinical Summary ---
Author Organization [employer] Address [address] [place] [address] 7 [place] [address] Care Team Providers Care Chief Investment Officer Name Role Phone Fela Grajeda MD Primary Care Provider [phone] Allergies Active Allergy Reactions Criticality Noted Date [...] Department Care Team Description 05/02/2025 Orders Only [facility] [address] [place] [address] Fela Grajeda MD Other fatigue (Primary Dx) 05/02/2025 Telephone [facility] [address] [place] [address] Fela Grajeda MD Medication Question 04/15/2025 Telephone [facility] [address] [place], [place] [phone] Fela Grajeda MD Medication Question 04/10/2025 Orders Only [facility] [address] [place], [place] [phone] Fela Grajeda MD Primary hypertension (Primary Dx) 04/08/2025 Telephone [facility] [address] [place] [address] Fela Grajeda MD Medication Question 03/24/2025 Refill [facility] [address] [place] [phone] Elizabeth Ravi MD 03/07/2025 Telephone [facility] [address] [place] [address] Fela Grajeda MD Med Refill 03/01/2025 Telephone [facility] [address] [place] [address] Fela Grajeda MD 03/01/2025 Orders Only [facility] [address] [place] [address] Fela Grajeda MD Primary hypertension (Primary Dx) 02/19/2025 3:15 PM EDT Office Visit [facility] [address] [place] [address] Fela Grajeda MD Primary hypertension (Primary Dx); [...] AM EDT Narrative 11/03/2024 11:24 AM EDT [facility] [address] [place] [address] Dr. Godoy, [place]AF[place] [address] Mammography Report Signed Patient: Kenna Guzman MR#: [id number] 36 : 1965 Acct:[id number] Age/Sex: 59 / F ADM Date: 10/24/24 Loc: HO.MAMMO Attending Dr: Fela Grajeda MD Ordering Physician: Fela Grajeda MD Results: 1 Negative Date of Service: 10/24/24 Follow Up: 1 Year From Orig inal Mammogram Procedure(s): MM tomosynthesis screening BI Accession Number(s): [id number] cc: Fela Grajeda MD EXAMINATION: MM SCREENING [...] 11/03/24 1121 DD/ 0745 TD/TT: 10/24/24 0755 Sole Molder: Procedure Note Donotuseinterpreter, Image - 11/03/2024 Walt [facility] [address] Godoy, [place] [address] Mammography Report Signed Patient: Kenna GuzmanMR#: [id number] 36 : 1965Acct:[id number] Age/Sex: 59 / FADM Date: 10/24/24 Loc: HO.MAMMO Attending Dr: Fela Grajeda MD Ordering Physician: Fela Grajeda MDResults: 1 Negative Date of Service: 10/24/24Follow Up: 1 Year From Orig inal Mammogram Procedure(s): MM tomosynthesis screening BI Accession Number(s): [id number] cc: Fela Grajeda MD EXAMINATION: MM SCREENING [...] 11/03/24 1121 DD/ 0745 TD/TT: 10/24/24 0755 Sole Molder: Fela Grajeda MD IM BI PROCEDURES Edited Re sult - Final * HIV-1/2 Antigen and Antibodies, Fourth Generation, with Reflexes (10/15/2024 10:09 AM EDT) HIV AB/AG Nonreactive Nonreactive [facility] Comment:HIV-1 p24 Ag and/or HIV-1/HIV-2 Ab not detected.A test result that is nonreactive does not exclude thepossibility of exposure to or infection with HIV-1 and/orHIV-2. Nonreactive results in this assay for individualswith prior exposure to HIV-1 and/or HIV-2 may be due toantigen and antibody levels that are below the limit ofdetection of this assay.The [employer] HIV Ag/Ab Combo assay result andsupplemental assay results should be interpreted inconjunction with the patient's clinical presentation,history and other laboratory results. If the results areinconsistent with clinical evidence, additional testing issuggested to confirm the result. Blood Venous blood specimen / Unknown 10/15/2024 10:09 AM EDT 10/15/2024 1:56 PM EDT us Fela Grajeda MD LAB BLOOD ORDERABLES Final Result Performing Organization Address [facility] Co de Phone Number [facility] [address] [place] [phone] * (ABNORMAL) Lipid Panel, Standard (10/15/2024 10:04 AM EDT) Triglycerides 55 <150 mg/dL [facility] Comment:Desirable Triglyceri de: less than 150 mg/dLBorderline High Triglyceride 150-199 mg/dLHigh Triglyceride: 200-499 mg/dLVery High Triglyceride: greater than or equal to 5OO mg/dL Cholesterol 236(H) <200 mg/dL [facility] Comment:Desirable Cholestero l: less than 200 mg/dLBorderline High Cholesterol: 200-239 mg/dLHigh Cholesterol: greater than 239 mg/dL LDL Cholesterol Calculated 140(H) <100 mg/dL [facility] Comment:Desirable LDL: less than 100 mg/dLNear Optimal/Above Optimal LDL: 110- 129 mg/dLBorderline High LDL: 130-159 mg/dLHigh LDL: 160-189 mg/dLVery High LDL: greater than or equal to 190 mg/dL HDL Cholesterol 85 >40 mg/dL [facility] Comment:Desirable HDL: great er than 40 mg/dL Note: This HDL assay may give artificially low results in patients with liver disease. Blood Venous blood specimen / Unknown 10/15/2024 10:04 AM EDT 10/15/2024 1:56 PM EDT us Fela Grajeda MD LAB BLOOD ORDERABLES Final Result Performing Organization Address [facility] Co de Phone Number [facility] [address] [place] [phone] [phone] * HEPATITIS C AB W/REFL TO HCV RNA, QN, PCR (07/13/2021 9:22 AM EST) HEPATITIS C ANTIBODY NON-REACT CAIO NON-REACT CAIO [facility] INDEX 0.01 <1.00 [facility] Comment: HCV antibody was non-reactive. There is no laboratory evidence of HCV infection. In most cases, no further action is required. However, if recent HCV exposure is suspected, a test for HCV RNA (test code 44674) is suggested. For additional information please refer to http://education.[employer]/faq/QXV33g9 (This link is being provided for informational/ educational purposes only.) 07/13/2021 9:22 AM EST us Fela Grajeda MD HISTORICAL/NON ORDERABLE JULIAN SANFORD Final Result [facility] [address] from Last 3 Months or Most Recently Relevant to Health Maintenance Insurance [employer] Care Teams Chief Investment Officer Relationship Specialty Start Date End Date Fela Grajeda MD [address] [place] [address] PCP - General Internal Medicine 07/11/18
--- OUTSIDE RECORDS SUMMARY | 2025-05-16 18:03 | XMS_ITS | Encounter Summary ---
Author Organization [employer] Address [address] [place] [address] Care Team Providers Care Channel Marketing Specialist Name Role Phone Fela Grajeda MD Primary Care Provider [phone] Reason for Visit * Reason Comments Med Refill Encounter Details Date Type Department Care Team ([facility] Contact Info) Description 01/09/2024 Refill [facility] [address] [place] [address] Fela Grajeda MD [address] [place] [address] Seasonal allergies Social History Tobacco Use Types [...] documented as of this encounter Care Teams Channel Marketing Specialist Relationship Specialty Start Date End Date Fela Grajeda MD [address] [place] [address] PCP - General Internal Medicine 07/11/18 documented as of this encounter
--- OUTSIDE RECORDS SUMMARY | 2025-05-16 18:03 | XMS_ITS | Encounter Summary ---
Author Organization [employer] Address [address] [place] [address] Care Team Providers Care Crime Lab Technician Name Role Phone Fela Grajeda MD Primary Care Provider [phone] Reason for Visit * Reason Onset Date Comments Med Refill 03/07/2025 Encounter Details Date Type Department Care Team ([facility] st Contact Info) Description 03/07/2025 Telephone [facility]EDS [address] [place] [address] Fela Grajeda MD [address] [place] [address] Med Refill Social History Tobacco Use Types [...] 50 MG tablet To be sent to: [facility] - [place], [place] - [address] [place] [address] St documented in this encounter Plan of Treatment Not on file documented as of this encounter Visit Diagnoses Not on filedocumented in this encounter Additional Health Concerns Assessment Noted Time PHQ-9 Depression Total Score: 7 10/16/19 9:53 AM EDT documented as of this encounter Care Teams Crime Lab Technician Relationship Specialty Start Date End Date Fela Grajeda MD [address] [place] [address] PCP - General Internal Medicine 07/11/18 documented as of this encounter
--- OUTSIDE RECORDS SUMMARY | 2025-05-16 18:03 | XMS_ITS | Encounter Summary ---
Author Organization [employer] Address [address] [place] [address] 7 [place] [address] Care Team Providers Care Assembler Tester Name Role Phone Fela Grajeda MD Primary Care Provider [phone] Encounter Details Date Type Department Care Team ([facility] st Contact Info) Description 05/02/2025 Orders Only [facility]S [address] [place], [place] [phone] Fela Grajeda MD [address] [place] [address] Other fatigue (Primary Dx) Social History Tobacco [...] the past 12 months, has t he Rover, gas, oil or water company threatened to [...] documented as of this encounter Care Teams Assembler Tester Relationship Specialty Start Date End Date Fela Grajeda MD [address] [place] [address] PCP - General Internal Medicine 07/11/18 documented as of this encounter
--- OUTSIDE RECORDS SUMMARY | 2025-05-16 18:03 | XMS_ITS | Encounter Summary ---
Author Organization [employer] Address [address] [facility] 7 [place] [address] Care Team Providers Care Outdoor Advertising Leasing Agent Name Role Phone Fela Grajeda MD Primary Care Provider [phone] Encounter Details Date Type Department Care Team ([facility] st Contact Info) Description 11/01/2024 Orders Only [facility] & PEDS [address] [place], [place] [phone] Fela Grajeda MD [address] [place] [address] Social History Tobacco Use Types Packs/Day Years [...] documented as of this encounter Care Teams Outdoor Advertising Leasing Agent Relationship Specialty Start Date End Date Fela Grajeda MD [address] [place] [address] PCP - General Internal Medicine 07/11/18 documented as of this encounter
--- OUTSIDE RECORDS SUMMARY | 2025-05-16 18:03 | XMS_ITS | Clinical Summary ---
Author Organization [employer] [facility] Address [address] [place] [address] Care Team Providers Care Independent Distributor Name Role Phone Unavailable Primary Care Provider Unavailabl e Surgical History Surgery Date Site/Laterality Comments HYSTERECTOMY PROCEDURE: HISTORICAL HYSTERECTOMY Medical History Medical History Date Comments Pure hypercholesterolemia 12/21/2006 DX:Pur e hypercholesterolemia Unspecified asthma(493.90) 12/29/2006 DX:Un specified asthma(493.90) Family History Relation Name Status Comments Aunt IN Father Alive CVA Mother Alive High cholestero l Sister Alive Uncle 1 IN Uncle 2 IN Uncle 3 IN Social History Tobacco Use Types Packs/Day Years [...]
--- OUTSIDE RECORDS SUMMARY | 2025-05-16 18:03 | XMS_ITS | Encounter Summary ---
Author Organization [employer] Address [address] [facility] [address] [place] [address] Care Team Providers Care Belt Builder Name Role Phone Fela Grajeda MD Primary Care Provider [phone] Encounter Details Date Type Department Care Team ([facility] st Contact Info) Description 03/01/2025 Orders Only [facility] & [facility]EDS [address] [place], [place] [phone] Fela Grajeda MD [address] [place] [address] Primary hypertension (Primary Dx) Social History Tobacco [...] documented as of this encounter Care Teams Belt Builder Relationship Specialty Start Date End Date Fela Grajeda MD [address] [place] [address] PCP - General Internal Medicine 07/11/18 documented as of this encounter
--- OUTSIDE RECORDS SUMMARY | 2025-05-16 18:03 | XMS_ITS | Clinical Summary ---
Author Organization [facility] Address [address] [place] [address] Care Team Providers Care Watch Mechanic Name Role Phone Unknown, Primary Care Provider [...] age to complete this topic Care Teams Watch Mechanic Relationship Specialty Start Date End Date Unknown, PCP - General 09/09/21
[2025-05-20 06:18] VITALS: BMI 28.1
[2025-05-20 06:24] VITALS: BP 119/75; PULSE 85; RESP 15; TEMP 36.8; O2SAT 96
[2025-05-20] MEDS: Lactated Ringers 1,000 ML 100 ML IVCONT (06:38)
--- NOTE | 2025-05-20 07:18 | P.CONAN_ITS ---
Documented by User: Bailey Castro NP 05/17/25 11:00 HPI - Anesthesia Eval Consult details Narrative: 59yo F for Left Cubital Tunnel Release PMFSH Active Problems Active Problems: All Active Problems Contusion of multiple sites of left hand and wrist (Acute) Numbness and tingling in left hand (Acute) Past Medical History Medical History (Updated 05/20/25 @ 06:46 by CHRIS Byrd) HTN (hypertension) Surgical History Surgical History H/O: hysterectomy History of meniscectomy of left knee History of arthroscopy of left shoulder Hx of decompression of ulnar nerve History of bilateral carpal tunnel release Social History Social History (Updated 01/29/25 @ 09:33 by JANNA Muñoz) Patient Tobacco Use Status: Former Tobacco user Use of substances other than those prescribed or required for medical reasons: Yes Substance Use Type Other:: ld 05/19-smoked Substance Use Frequency: Occasionally Are you DNR?: No Advance Directives: No Advance Directives Information Provided: Yes Current occupational status: employed 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 Meds Allergies Allergy/AdvReac Type Severity Reaction Status Date / Time clindamycin Allergy Hives Verified 05/20/25 06:56 Macrolide Antibiotics Allergy Hives Verified 05/20/25 06:54 prednisone Allergy Palpitation Verified 05/20/25 06:18 s Amytryplines Allergy Unknown heart Uncoded 05/15/25 11:30 palpations Z-packs Allergy Unknown Hives Uncoded 05/15/25 11:30 Home Medications ?Medication ?Instructions ?Recorded ?Confirmed ?Last Taken ?Type albuterol sulfate 90 mcg/actuation 1 inh inhalation Q4 -6H PRN 01/29/25 05/20/25 Unknown History aerosol inhaler Shortness Of Breath Or Wheez ing azelastine 137 mcg (0.1 %) nasal 1 spray intranasal DA JULES 01/29/25 05/20/25 Unknown History spray cetirizine 10 mg tablet 10 mg PO DAILY 01/29/2505/11 Unknown History losartan 25 mg tablet 25 mg PO DAILY 02/27/2505/11 Unknown History spironolactone 25 mg tablet 25 mg PO DAILY 05/15/25 Unknown History Assessment and Plan Assessment Anesthesia Assessment: Chart Reviewed Documented by User: Reema Chilel DO 05/20/25 07:30 PMFSH Past Medical History Medical History (Updated 05/20/25 @ 06:46 by CHRIS Byrd) HTN (hypertension) Family History Family history of problems with anesthesia: No Surgical History Surgical History H/O: hysterectomy History of meniscectomy of left knee History of arthroscopy of left shoulder Hx of decompression of ulnar nerve History of bilateral carpal tunnel release History of Problems with Anesthesia: No Social History Social History (Updated 01/29/25 @ 09:33 by Mayra Joiner [facility]) Patient Tobacco Use Status: Former Tobacco user Use of substances other than those prescribed or required for medical reasons: Yes Substance Use Type Other:: ld 05/19-smoked Substance Use Frequency: Occasionally Are you DNR?: No Advance Directives: No Advance Directives Information Provided: Yes Current occupational status: employed 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 Meds Allergies Allergy/AdvReac Type Severity Reaction Status Date / Time clindamycin Allergy Hives Verified 05/20/25 06:56 Macrolide Antibiotics Allergy Hives Verified 05/20/25 06:54 prednisone Allergy Palpitation Verified 05/20/25 06:18 s Amytryplines Allergy Unknown heart Uncoded 05/15/25 11:30 palpations Z-packs Allergy Unknown Hives Uncoded 05/15/25 11:30 Home Medications ?Medication ?Instructions ?Recorded ?Confirmed ?Last Taken ?Type albuterol sulfate 90 mcg/actuation 1 inh inhalation Q4 -6H PRN 01/29/25 05/20/25 Unknown History aerosol inhaler Shortness Of Breath Or Wheez ing azelastine 137 mcg (0.1 %) nasal 1 spray intranasal DA JULES 01/29/25 05/20/25 Unknown History spray cetirizine 10 mg tablet 10 mg PO DAILY 01/29/2505/11 Unknown History losartan 25 mg tablet 25 mg PO DAILY 02/27/2505/11 Unknown History spironolactone 25 mg tablet 25 mg PO DAILY 05/15/25 Unknown History Exam Exam Date and Time: 05/20/25 0710 Height,Weight and Vital Signs: Height 5 ft 1.5 in Weight 68.6 kg Vital Signs Temperature 98.3 F 05/20/25 06:24 Pulse Rate 85 05/20/25 06:24 Respiratory Rate 15 05/20/25 06:24 Blood Pressure 119/75 05/20/25 06:24 Pulse Oximetry 96 05/20/25 06:24 Oxygen Delivery Method Room Air 05/20/25 06:24 Temperature 98.3 F 05/20/25 06:24 Pulse Rate 85 05/20/25 06:24 Respiratory Rate 15 05/20/25 06:24 Blood Pressure 119/75 05/20/25 06:24 Pulse Oximetry 96 05/20/25 06:24 Oxygen Delivery Method Room Air 05/20/25 06:24 Airway Mallampati Class: I TM Dist: >3cm Neck ROM: Full Loose/Missing/Broken Teeth: No (patient denies any loose or broken teeth) Heart: S1S2 Lungs: CTAB Assessment and Plan Assessment Anesthesia Assessment: Anesthesia Plan Discussed and Chart Reviewed Final Anesthetic Review Family History of Problems with Anesthesia: No History of Problems with Anesthesia: No NPO: Yes ASA Class: II Final Preanesthetic Review: No Changes in Pt Med Stat, Meds/Allgs Chart Reviewed, Consent Obtained/Reviewed and Anes Risks/Benef Reviewed Patient Risk: Low Procedure Risk: Low Anesthetic Plan Anesthetic Plan: GA and Agree w/ Assess. and Plan Disposition: Standard PACU
--- NOTE | 2025-05-20 07:44 | MHC.SHP ---
Pre-Procedural Eval Section A - 24 Hr Update-Section A only Date of Service: 05/20/25 The patient is an INPATIENT: No Changes since office visit: No Cold of Flu in the past 2 weeks, No New Medical Problems, No Changes in Medication and No Patient answered all questions The patient has been examined within 24 hours of the surgical procedure. The History & Physical has been completed within 30 days and I have reviewed it.: Yes Section B - Complete if H&P > 30 days Chief Complaint: Lesion of ulnar nerve, left upper limb Allergies: Allergies Allergy/AdvReac Type Severity Reaction Status Date / Time clindamycin Allergy Hives Verified 05/20/25 06:56 Macrolide Antibiotics Allergy Hives Verified 05/20/25 06:54 prednisone Allergy Palpitation Verified 05/20/25 06:18 s Amytryplines Allergy Unknown heart Uncoded 05/15/25 11:30 palpations Z-packs Allergy Unknown Hives Uncoded 05/15/25 11:30 Plan I have reviewed the history and physical and performed a pertinent physical examination on my patient. No changes have occurred unless specified. Time Spent With Patient Time: Total time managing care of this patient today ____ minutes.
--- NOTE | 2025-05-20 07:45 | P.OP_ITS ---
Operative Note Operative Note Date of Service: 05/20/25 Narrative: Operative Note Narrative: Preop diagnosis: 1. Left Cubital tunnel syndrome Postop diagnosis: Same Procedure: 1. Left Cubital Tunnel Release Surgeon: Shira King MD Partition Assembler: None Anesthesia: General Anesthesia Findings: Thickening and fibrosis about the ulnar nerve at the cubital tunnel with an anconeus epitrochlearis muscle appreciated with narrowing of the ulnar nerve at this point. Implants: none Tourniquet time: 21 minutes EBL: 5.0 ml Specimen: none Drains: None Complications: None Disposition: Brought to the recovery room in stable condition Plan: Follow-up in 10-14 days for wound check, and suture removal Indications: The patient is 59 years old with left cubital tunnel syndrome . The risks and benefits of operative treatment, including but not limited to risk of damage to blood vessels, nerves, tendons, infection, recurrence, persistent pain or numbness, incomplete resolution of preoperative symptoms, or need for further surgery were discussed with the patient and they wished to proceed with surgery. Procedure: Once consent was obtained patient was brought back to the operating suite and placed in the operating table in a supine position. Perioperative antibiotics and anesthesia was administered by the anesthesia team. The limb was prepped and draped in a standard surgical fashion, and a sterile tourniquet applied to the proximal aspect of the left upper extremity. The limb was elevated exsanguinated with Esmarch bandage and the tourniquet inflated to 250 mm of mercury for a total tourniquet time of 21 minutes. A 6 cm gently curved but longitudinally oriented incision was made centered over the cubital tunnel of the left upper extremity. Incision was made through the skin to the subcutaneous tissues using a # 15 Blade. I then dissected down to the level of the medial epicondyle and the cubital tunnel using tenotomy scissors. Care was taken to protect the medial antebrachial cutaneous nerve. The ulnar nerve was identified just posterior to the medial intermuscular septum. The ulnar nerve was released in a proximal to distal direction using tenotomy in iris scissors while directly visualizing and protecting the ulnar nerve. Thickening and fibrosis was appreciated about the ulnar nerve as it passed through the cubital tunnel. There was narrowing seen in the ulnar nerve where an anconeus epitrochlearis muscle was appreciated, and had been divided The ulnar nerve was assessed as I passed the elbow through full flexion and extension and was found to remain stable within its groove. At this point the tourniquet was deflated and hemostasis obtained with a brief period of local pressure and bipolar electrocautery. The wound was copiously irrigated with normal saline. The subcutaneous layer was closed with 4-0 Vicryl suture, and the skin edges were reapproximated with a running 4-0 Monocryl subcuticular closure. Steri-Strips and Mastisol were applied. The wound was infiltrated with some 1% plain lidocaine for postop pain control and sterile dressings were applied. The patient appears to have tolerated the procedure well and with no complications. All digits were well vascularized at the conclusion of the case.
[2025-05-20 09:01] VITALS: BP 109/63; PULSE 96; RESP 16; TEMP 36.6; O2SAT 99
[2025-05-20 09:06] VITALS: BP 110/68; PULSE 87; RESP 16; O2SAT 99
[2025-05-20 09:11] VITALS: BP 120/75; PULSE 83; RESP 15; O2SAT 95
[2025-05-20 09:16] VITALS: BP 115/70; PULSE 84; RESP 18; O2SAT 96
[2025-05-20 09:31] VITALS: BP 112/70; PULSE 83; RESP 18; TEMP 36.8; O2SAT 97
== END 2025-05-20 10:00 | disposition home or self-care (01) ==
PROVIDERS: PCP Internal Medicine; Visit Provider Orthopaedic Surgery
PROC: (CPT 64718; principal; 2025-05-20 07:30)
DX: G56.22 Lesion of ulnar nerve, left upper limb (principal); I10 Essential (primary) hypertension; Z79.899 Other long term (current) drug therapy; Z88.1 Allergy status to other antibiotic agents; Z88.8 Allergy status to other drugs, medicaments and biological substances; Z98.890 Other specified postprocedural states; Z87.891 Personal history of nicotine dependence
CPT/HCPCS: 64718; J0131; J0690; J1100; J1885; J2003; J2004; J2371; J2405; J2704; J3010

== ENCOUNTER → 2025-05-20 05:46 | Outpatient (BNV) | payer OTHER, SELFPAY | PROVIDERS: PCP Internal Medicine; Visit Provider Orthopaedic Surgery | DX: G56.22 Lesion of ulnar nerve, left upper limb (principal) | CPT/HCPCS: 64718 ==

== ENCOUNTER 2025-06-04 12:45 | Outpatient (AMB) | payer OTHER, SELFPAY ==
--- NOTE | 2025-06-04 12:52 | A.OFFVIS_ITS ---
Vital Signs 06/04/25 12:53 Height 5 ft 1.5 in Weight 151 lb BMI 28.1 Intake Visit Reasons: PO LT cubital tunnel 05/20/25 AR Intake Note: Kenna is a 59 year old right hand dominant female who presents today for a Post-Operative Visit status post Left Cubital Tunnel Release performed by Dr. King on 05/20/25. Patient reports she is doing well. She denies numbness or tingling. She shares she removed steri strips herself. Suture tail snipped and steri strips applied. Allergies clindamycin Allergy (Verified 06/04/25 12:53) Hives Macrolide Antibiotics Allergy (Verified 06/04/25 12:53) Hives prednisone Allergy (Verified 06/04/25 12:53) Palpitations Amytryplines Allergy (Unknown, Uncoded 06/04/25 12:53) heart palpations Z-packs Allergy (Unknown, Uncoded 06/04/25 12:53) Hives HPI HPI PO LT cubital tunnel 05/20/25 AR: Details: Kenna is a 59 year old right hand dominant female who presents today for a Post-Operative Visit status post Left Cubital Tunnel Release performed by Dr. King on 05/20/25. Patient reports she is doing well. She denies numbness or tingling. She shares she removed steri strips herself. Suture tail snipped and steri strips applied. Denies any ongoing pain. 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 Review of Systems Const All systems reviewed & are unremarkable except as noted in HPI and below Physical Exam Vital Signs: BMI result Body Mass Index 28.1 Const General: cooperative, healthy appearing and no acute distress Orientation/consciousness: patient oriented x3 HEENT Head: Yes normocephalic and Yes atraumatic Eyes EOM: EOMs intact bilaterally Resp Effort & Inspection: normal respiratory effort and able to speak in complete sentences Cardio Jugular venous distension: no JVD Skin General skin exam: turgor normal Rashes: no rashes Neuro General: patient oriented x3 Extrem Other: Evaluation of Left Upper Extremity: The patient is alert, oriented, and in no acute distress Neuro: Normal sensation to all digits of the left hand in the office today Vascular: Cap refill brisk ROM: With encouragement She can make a fist and extend all her digits Good elbow ROM without pain Skin: Well approximated and well healing incision site noted on the medial aspect of the left elbow No lacerations or abrasions or evidence of open fracture General: No ecchymosis. Resolved swelling over the dorsal central aspect of her wrist No Erythema or evidence of infection. Psych Appearance: grossly normal Affect: normal affect Attitude: cooperative Assessment & Plan Assessment & Plan (1) Cubital tunnel syndrome on left: Code(s): G56.22 - Lesion of ulnar nerve, left upper limb Category: Medical Plan 1. Status post left cubital tunnel release DOS 05/20/2025 With symptomatic resolution postoperatively Patient appears to be recovering well postoperatively Patient is educated about the typical recovery course No under water times one-week, 2 lb weight limit x2 weeks Patient appears to be recovering very well, and requires no further acute follow-up with us postoperatively Patient is educated and worrisome signs and symptoms, and should call us if they experience any of these, including but not limited to redness, swelling, increased pain, and discharge Patient understands this and is amenable to this plan Follow-up as needed Coding Level of Care Code Global (98724) Diagnoses Cubital tunnel syndrome on left G56.22
[2025-06-04 12:53] VITALS: BMI 28.1
--- OUTSIDE RECORDS SUMMARY | 2025-06-04 16:21 | XMS_ITS | Encounter Summary ---
Author Organization [employer] Address [address] [facility] [address] [place] [address] Care Team Providers Care Technician Trainee Name Role Phone Fela Grajeda MD Primary Care Provider [phone] Encounter Details Date Type Department Care Team ([facility] st Contact Info) Description 03/01/2025 Orders Only [facility] [address] [place], [place] [phone] Fela Grajeda MD [address] [place] [address] Primary hypertension (Primary Dx) Social History Tobacco [...] as of this encounter Plan of Treatment Upcoming Encounters Date Type Department Care Team (Late st Contact Info) Description 06/13/2025 9:30 AM EST Office Visit [facility] [address] [place] [address] Fela Grajeda MD [address] [place] [address] documented as of this encounter Visit Diagnoses Diagnosis Primary hypertension- Primary Unspecified essential hypertension documented in this encounter Additional Health Concerns Assessment Noted Time PHQ-9 Depression Total Score: 7 10/16/19 25 9:53 AM EDT documented as of this encounter Care Teams Technician Trainee Relationship Specialty Start Date End Date Fela Grajeda MD [address] [place] [address] PCP - General Internal Medicine 07/11/18 documented as of this encounter
--- OUTSIDE RECORDS SUMMARY | 2025-06-04 16:21 | XMS_ITS | Encounter Summary ---
Author Organization [employer] Address [address] [facility] 7 [place] [address] Care Team Providers Care Manager Regional Sales Name Role Phone Fela Grajeda MD Primary Care Provider [phone] Encounter Details Date Type Department Care Team ([facility] st Contact Info) Description 11/01/2024 Orders Only [facility] [address] [place], [place] [phone] Fela Grajeda MD [address] [place] [address] Social History Tobacco Use Types Packs/Day Years [...] 9:30 AM EST Office Visit [facility] [address] [place] [address] Fela Grajeda MD [address] [place] [address] documented as of this encounter Visit Diagnoses Not on filedocumented in this encounter Additional Health Concerns Assessment Noted Time PHQ-9 Depression Total Score: 7 10/16/19 25 9:53 AM EDT documented as of this encounter Care Teams Manager Regional Sales Relationship Specialty Start Date End Date Fela Grajeda MD [address] [place] [address] PCP - General Internal Medicine 07/11/18 documented as of this encounter
--- OUTSIDE RECORDS SUMMARY | 2025-06-04 16:21 | XMS_ITS | Encounter Summary ---
Author Organization [employer] Address [address] [place] [address] [address] [place] [address] Care Team Providers Care Container Finishing Inspector Name Role Phone Fela Grajeda MD Primary Care Provider [phone] Encounter Details Date Type Department Care Team ([facility] st Contact Info) Description 05/02/2025 Orders Only [facility] [address] [place], [place] [phone] Fela Grajeda MD [address] [place] [address] Other fatigue (Primary Dx) Social History Tobacco [...] the past 12 months, has t he [facility], gas, oil or water company threatened to [...] Description 06/13/2025 9:30 AM EST Office Visit [facility] [address] [place] [address] Fela Grajeda MD [address] [place] [address] Scheduled Orders Name Type Priority Associated Diagnoses [...] documented as of this encounter Care Teams Container Finishing Inspector Relationship Specialty Start Date End Date Fela Grajeda MD [address] [place] [address] PCP - General Internal Medicine 07/11/18 documented as of this encounter
--- OUTSIDE RECORDS SUMMARY | 2025-06-04 16:21 | XMS_ITS | Clinical Summary ---
Author Organization [email or web address] Address [address] [place] [address] 7 [place] [address] Care Team Providers Care Production Wood Craftsman Name Role Phone Fela Grajeda MD Primary Care Provider [phone] Allergies Active Allergy Reactions Criticality Noted Date [...] Department Care Team Description 05/02/2025 Orders Only [facility] [address] [place] [address] Fela Grajeda MD Other fatigue (Primary Dx) 05/02/2025 Telephone [facility] [address] [place] [address] Fela Grajeda MD Medication Question 04/15/2025 Telephone [facility] [address] [place], [place] [phone] Fela Grajeda MD Medication Question 04/10/2025 Orders Only [facility] [address] [place], [place] [phone] Fela Grajeda MD Primary hypertension (Primary Dx) 04/08/2025 Telephone [facility] [address] [place] [address] Fela Grajeda MD Medication Question 03/24/2025 Refill [facility] [address] [place] [address] Elizabeth Ravi MD 03/07/2025 Telephone [facility] [address] [facility] [place] [address] Fela Grajeda MD Med Refill from Last 3 Months Immunizations Immunization Administration [...] 02/19/2025 3:31 PM EDT Plan of Treatment Upcoming Encounters Date Type Department Care Team (Late st Contact Info) Description 06/13/2025 9:30 AM EST Office Visit [facility] [address] [place] [address] Fela Grajeda MD [address] [place], [place] [phone] Health Maintenance Due Date Last Done Comments CT Colonography 1965 FIT DNA/Cologuard 1965 FIT 1965 FOBT 1965 Sigmoidoscopy 1965 Hepatitis B Vaccines (1 of 3 - 19+ 3-dose series) 1984 Pap Smear 1986 Cervical Cancer Screening 1995 HPV/Cotest 1995 Pneumococcal Vaccine: 50+ Years (1 of 1 - PCV) 2015 DTaP/Tdap/Td Vaccines (2 - Td or Tdap) 01/16/2022 01/17/2012 COVID-19 Vaccine (4 - 2024- season) 2025 05/27/2021, 11/02/2020, 10/10/2020 Influenza Vaccine (#1) 2025 , 05/31/2019, 04/21/2018, Additional history exists Disability Screening 07/25/2025 07/25/2024 Alcohol/Substance Use Screening 10/15/2025 10/15/2024 Depression Screening 10/15/2025 10/15/2024, 10/16/19 25 SDOH Screening 10/15/2025 10/15/2024 Tobacco Screening 02/20/2026 02/20/2025 Mammogram 10/24/2026 10/24/2024, 041 , 10/12/2022, Additional history exists Colonoscopy 10/03/2028 [...] AM EDT Narrative 11/03/2024 11:24 AM EDT [facility] [address] [place] [address] Mammography Report Signed Patient: Kenna Guzman MR#: [id number] 36 : 1965 Acct:[id number] Age/Sex: 59 / F ADM Date: 10/24/24 Loc: HO.MAMMO Attending Dr: Fela Grajeda MD Ordering Physician: Fela Grajeda MD Results: 1 Negative Date of Service: 10/24/24 Follow Up: 1 Year From [facility] ina Mammogram Procedure(s): MM tomosynthesis screening BI Accession Number(s): [id number] cc: Fela Grajeda MD EXAMINATION: MM SCREENING [...] 11/03/24 1121 DD/ 0745 TD/TT: 10/24/24 0755 Hat Model: Procedure Note Donotuseinterpreter, Image - 11/03/[facility] [address] [place], [place] [address] Mammography Report Signed Patient: Kenna GuzmanMR#: [id number] 36 : 1965Acct:[id number] Age/Sex: 59 / FADM Date: 10/24/24 Loc: HO.MAMMO Attending Dr: Fela Grajeda MD Ordering Physician: Fela Grajeda MDResults: 1 Negative Date of Service: 10/24/24Follow Up: 1 Year From Orig inal Mammogram Procedure(s): MM tomosynthesis screening BI Accession Number(s): [id number] cc: Fela Grajeda MD EXAMINATION: MM SCREENING [...] 11/03/24 1121 DD/ 0745 TD/TT: 10/24/24 0755 Hat Model: us Fela Grajeda MD IM BI PROCEDURES Edited Re sult - Final * HIV-1/2 Antigen and Antibodies, Fourth Generation, with Reflexes (10/15/2024 10:09 AM EDT) HIV AB/AG Nonreactive Nonreactive [facility] Comment:HIV-1 p24 Ag and/or HIV-1/HIV-2 Ab not detected.A test result that is nonreactive does not exclude thepossibility of exposure to or infection with HIV-1 and/orHIV-2. Nonreactive results in this assay for individualswith prior exposure to HIV-1 and/or HIV-2 may be due toantigen and antibody levels that are below the limit ofdetection of this assay.The [place] [facility] HIV Ag/Ab Combo assay result andsupplemental assay results should be interpreted inconjunction with the patient's clinical presentation,history and other laboratory results. If the results areinconsistent with clinical evidence, additional testing issuggested to confirm the result. Blood Venous blood specimen / Unknown 10/15/2024 10:09 AM EDT 10/15/2024 1:56 PM EDT us Fela Grajeda MD LAB BLOOD ORDERABLES Final Result Performing Organization Address City/[facility]/ZIP Co de Phone Number [facility] [address] [place] [address] [phone] * (ABNORMAL) Lipid Panel, Standard (10/15/2024 10:04 AM EDT) Triglycerides 55 <150 mg/dL [facility] Comment:Desirable Triglyceri de: less than 150 mg/dLBorderline High Triglyceride 150-199 mg/dLHigh Triglyceride: 200-499 mg/dLVery High Triglyceride: greater than or equal to 5OO mg/dL Cholesterol 236(H) <200 mg/dL [facility] Comment:Desirable Cholestero l: less than 200 mg/dLBorderline High Cholesterol: 200-239 mg/dLHigh Cholesterol: greater than 239 mg/dL LDL Cholesterol Calculated 140(H) <100 mg/dL [facility] Comment:Desirable LDL: less than 100 mg/dLNear Optimal/Above Optimal LDL: 110- 129 mg/dLBorderline High LDL: 130-159 mg/dLHigh LDL: 160-189 mg/dLVery High LDL: greater than or equal to 190 mg/dL HDL Cholesterol 85 >40 mg/dL [facility] Comment:Desirable HDL: great er than 40 mg/dL Note: This HDL assay may give artificially low results in patients with liver disease. Blood Venous blood specimen / Unknown 10/15/2024 10:04 AM EDT 10/15/2024 1:56 PM EDT us Fela Grajeda MD LAB BLOOD ORDERABLES Final Result Performing Organization Address City/[facility]/ZIP Co de Phone Number [facility] [address] [place] [address] [phone] * HEPATITIS C AB W/REFL TO HCV RNA, QN, PCR (07/13/2021 9:22 AM EST) HEPATITIS C ANTIBODY NON-REACT CAIO NON-REACT CAIO [facility] INDEX 0.01 <1.00 [facility] Comment: HCV antibody was non-reactive. There is no laboratory evidence of HCV infection. In most cases, no further action is required. However, if recent HCV exposure is suspected, a test for HCV RNA (test code 56363) is suggested. For additional information please refer to [email or web address]/faq/SXY71n3 (This link is being provided for informational/ educational purposes only.) 07/13/2021 9:22 AM EST us Fela Grajeda MD HISTORICAL/NON ORDERABLE JULIAN SANFORD Final Result [facility] [address] from Last 3 Months or Most Recently Relevant to Health Maintenance Insurance [facility] Care Teams Production Wood Craftsman Relationship Specialty Start Date End Date Fela Grajeda MD [address] [place] [address] PCP - General Internal Medicine 07/11/18
--- OUTSIDE RECORDS SUMMARY | 2025-06-04 16:21 | XMS_ITS | Encounter Summary ---
Author Organization [employer] Address [address] [place] [address] [address] [place] [address] Care Team Providers Care Group Supervisor Yard Name Role Phone Fela Grajeda MD Primary Care Provider [phone] Encounter Details Date Type Department Care Team ([facility] st Contact Info) Description 10/16/2024 Orders Only [facility] [address] [place] [address] Fela Grajeda MD [address] [place] [address] Macrocytosis (Primary Dx) Social History Tobacco Use [...] Upcoming Encounters Date Type Department Care Team ([facility] st Contact Info) Description 06/13/2025 9:30 AM EST Office Visit [facility] [address] [place] [address] Fela Grajeda MD [address] [place] [address] Scheduled Orders Name Type Priority Associated Diagnoses [...] AM EDT Narrative 11/03/2024 11:24 AM EDT [address] [place] [address] Mammography Report Signed Patient: Kenna Guzman MR#: [id number] 36 : 1965 Acct:[id number] Age/Sex: 59 / F ADM Date: 10/24/24 Loc: HO.MAMMO Attending Dr: Fela Grajeda MD Ordering Physician: Fela Grajeda MD Results: 1 Negative Date of Service: 10/24/24 Follow Up: 1 Year From Orig ina Mammogram Procedure(s): MM tomosynthesis screening BI Accession Number(s): [id number] cc: Fela Grajeda MD EXAMINATION: MM SCREENING [...] 11/03/24 1121 DD/ 0745 TD/TT: 10/24/24 0755 Meatcutter: Procedure Note Donotuseinterpreter, Image - 11/03/[address] [place] [address] Mammography Report Signed Patient: Kenna GuzmanMR#: [id number] 36 : 1965Acct:[id number] Age/Sex: 59 / FADM Date: 10/24/24 Loc: HO.MAMMO Attending Dr: Fela Grajeda MD Ordering Physician: Fela Grajeda MDResults: 1 Negative Date of Service: 10/24/24Follow Up: 1 Year From Orig ina Mammogram Procedure(s): MM tomosynthesis screening BI Accession Number(s): [id number] cc: Fela Grajeda MD EXAMINATION: MM SCREENING [...] 11/03/24 1121 DD/ 0745 TD/TT: 10/24/24 0755 Meatcutter: Fela Grajeda MD IMG BI PROCEDURES Edited Re sult - Final documented in this encounter Visit Diagnoses Diagnosis Macrocytosis- Primary Other specified diseases of blood and blood-forming organs documented in this encounter Additional Health Concerns Assessment Noted Time PHQ-9 Depression Total Score: 7 10/16/19 25 9:53 AM EDT documented as of this encounter Care Teams Group Supervisor Yard Relationship Specialty Start Date End Date Fela Grajeda MD [address] [place] [address] PCP - General Internal Medicine 07/11/18 documented as of this encounter
--- OUTSIDE RECORDS SUMMARY | 2025-06-04 16:21 | XMS_ITS | Encounter Summary ---
Author Organization [employer] Address [address] [facility] [address] [place] [address] Care Team Providers Care Thermograph Operator Name Role Phone Fela Grajeda MD Primary Care Provider [phone] Encounter Details Date Type Department Care Team ([facility] st Contact Info) Description 04/10/2025 Orders Only [facility] [address] [place], [place] [phone] Fela Grajeda MD [address] [place] [address] Primary hypertension (Primary Dx) Social History Tobacco [...] Description 06/13/2025 9:30 AM EST Office Visit [facility] [address] [place] [address] Fela Grajeda MD [address] [place] [address] documented as of this encounter Visit Diagnoses Diagnosis Primary hypertension- Primary Unspecified essential hypertension documented in this encounter Additional Health Concerns Assessment Noted Time PHQ-9 Depression Total Score: 7 10/16/19 25 9:53 AM EDT documented as of this encounter Care Teams Thermograph Operator Relationship Specialty Start Date End Date Fela Grajeda MD [address] [place] [address] PCP - General Internal Medicine 07/11/18 documented as of this encounter
--- OUTSIDE RECORDS SUMMARY | 2025-06-04 16:21 | XMS_ITS | Encounter Summary ---
Author Organization [employer] Address [address] [place] [address] Care Team Providers Care Epic Ambulatory Specialists Name Role Phone Fela Grajeda MD Primary Care Provider [phone] Reason for Visit * Reason Onset Date Comments Med Refill 03/07/2025 Encounter Details Date Type Department Care Team ([facility] st Contact Info) Description 03/07/2025 Telephone [facility] [address] [place] [address] Fela Grajeda MD [address] [place] [address] Med Refill Social History Tobacco Use Types [...] 50 MG tablet To be sent to: [facility] - [place] - [address] documented in this encounter Plan of Treatment Upcoming Encounters Date Type Department Care Team (Late st Contact Info) Description 06/13/2025 9:30 AM EST Office Visit [facility] [address] [place] [address] Fela Grajeda MD [address] [place] [address] documented as of this encounter Visit Diagnoses Not on filedocumented in this encounter Additional Health Concerns Assessment Noted Time PHQ-9 Depression Total Score: 7 10/16/19 25 9:53 AM EDT documented as of this encounter Care Teams Epic Ambulatory Specialists Relationship Specialty Start Date End Date Fela Grajeda MD [address] [place] [address] PCP - General Internal Medicine 07/11/18 documented as of this encounter
--- OUTSIDE RECORDS SUMMARY | 2025-06-04 16:21 | XMS_ITS | Clinical Summary ---
Author Organization [employer] [facility] Address [address] [place] [address] Care Team Providers Care Middle School Coach Name Role Phone Unavailable Primary Care Provider Unavailabl e Surgical History Surgery Date Site/Laterality Comments HYSTERECTOMY PROCEDURE: HISTORICAL HYSTERECTOMY Medical History Medical History Date Comments Pure hypercholesterolemia 12/21/2006 DX:Pur e hypercholesterolemia Unspecified asthma(493.90) 12/29/2006 DX:Un specified asthma(493.90) Family History Relation Name Status Comments Aunt [place] Father Alive CVA Mother Alive High cholestero l Sister Alive Uncle 1 [place] Uncle 2 [place] Uncle 3 [place] Social History Tobacco Use Types Packs/Day Years [...] Screening 1965 Colorectal Cancer Screening: Colonoscopy 1965 Hepatitis B Vaccines (1 of 3 - 19+ 3-dose series) 1984 Cervical Cancer Screening: Pap Smear 1986 Pneumococcal Vaccine: 50+ Years (1 of 1 - PCV) 2015 DTaP,Tdap,and Td Vaccines (2 - Td or Tdap) 01/16/2022 01/17/2012 Hepatitis C Screening 06/13/2022 Social Influencers of Health Screening 06/13/2022 Depression Screening 07/11/2024 COVID-19 Vaccine ( season) 2025 05/27/2021, 11/02/2020, 10/10/2020 Influenza Vaccine (#1) 2025 , 05/31/2019, 04/21/2018, Additional history exists Hypertension/CHF/CAD Annual BMP Blood Test 05/17/2025 12/24/2017, 12/24/2017 Cholesterol Screening (Lipid Panel) 10/15/2029 10/15/2024 RSV Immunization Adult Patients (1 - 1-dose 75+ series) 2040 Zoster Vaccines Completed 09/15/2021, 07/13/2021 HIV Screening [...] 20 months Aged Out No longer eligible based on patient's age to complete this topic Varicella Vaccines Aged Out No longer eligible based on patient's age to complete this topic
--- OUTSIDE RECORDS SUMMARY | 2025-06-04 16:21 | XMS_ITS | Clinical Summary ---
Author Organization [facility] Address [address] [place] [address] Care Team Providers Care Rehab Care Assistant Name Role Phone Unknown, Primary Care [...] age to complete this topic Care Teams Rehab Care Assistant Relationship Specialty Start Date End Date Unknown, PCP - General 09/09/21
--- OUTSIDE RECORDS SUMMARY | 2025-06-04 16:21 | XMS_ITS | Encounter Summary ---
Author Organization [employer] Address [address] [place] [address] Care Team Providers Care Adult Family Home Program Manager Name Role Phone Fela Grajeda MD Primary Care Provider [phone] Reason for Visit * Reason Comments Med Refill Encounter Details Date Type Department Care Team ([facility] Contact Info) Description 01/09/2024 Refill [facility] [address] [place] [address] Fela Grajeda MD [address] [place] [address] Seasonal allergies Social History Tobacco Use Types [...] Description 06/13/2025 9:30 AM EST Office Visit [facility] [address] [place] [address] Fela Grajeda MD [address] [place] [address] documented as of this encounter Visit Diagnoses Diagnosis Seasonal allergies Allergic rhinitis, cause unspecified documented in this encounter Additional Health Concerns Assessment Noted Time PHQ-9 Depression Total Score: 3 10/12/19 24 9:48 AM EDT documented as of this encounter Care Teams Adult Family Home Program Manager Relationship Specialty Start Date End Date Fela Grajeda MD [address] [place] [address] PCP - General Internal Medicine 07/11/18 documented as of this encounter
== END 2025-06-04 13:19 | disposition home or self-care (01) ==
LOC: HO.HOS 12:45
PROVIDERS: PCP Internal Medicine
DX: G56.22 Lesion of ulnar nerve, left upper limb (principal)
CPT/HCPCS: 99024

== ENCOUNTER 2025-06-20 08:21 | Outpatient (REF) | payer OTHER, SELFPAY ==
[2025-06-20 15:06] LABS: MANUAL DIFF FLAG NO
[2025-06-20 15:10] LABS: Hematocrit 38.7 % (37.0-47.0); Hemoglobin 12.6 g/dl (12.0-16.0); Imm Gran Abs Auto 0.01 X10*3/uL (0.00-0.03); Imm Gran Pct Auto 0.1 % (0.0-0.4); Lymphocytes Absolute Auto 2.3 X10*3/uL (1.2-4.9); Mean Corpuscular HGB Conc 32.6 g/dl (31.0-35.0); Mean Corpuscular Hemoglobin 32.2 pg (27.0-33.0); Mean Corpuscular Volume 99.0 fL (80.0-98.0); NRBC Abs Auto 0.000 X10*3/uL (0.0-0.012); NRBC Pct Auto 0.0 /100WBC (0.0-0.2); Platelet Count 278 X10*3/uL (160-400); Red Blood Count 3.91 X10*6/uL (4.20-5.50); White Blood Count 6.7 X10*3/uL (4.8-10.8)
[2025-06-20 15:47] LABS: Alanine Aminotransferase 15 U/L (0-31); Albumin Level 4.5 g/dL (3.5-5.0); Alkaline Phosphatase 70 U/L (39-117); Anion Gap 11 (12-20); Aspartate Amino Transferase 26 U/L (5-31); Blood Urea Nitrogen 14 mg/dL (9-16); Calcium 9.3 mg/dL (8.4-10.2); Carbon Dioxide 24 mmol/L (22-29); Chloride 109 mmol/L (96-108); Cholesterol 249 mg/dL (<200); Estimated Glomerular Filt Rate > 60; HDL Cholesterol 88 mg/dL (>40); Potassium 3.8 mmol/L (3.3-5.1); Sodium 140 mmol/L (135-145); Total Protein 7.1 g/dL (6.5-8.0); Triglycerides 69 mg/dL (<150)
== END 2025-06-20 08:22 ==
LOC: HO.CHCLDS 08:21
PROVIDERS: Visit Provider Internal Medicine
DX: I10 Essential (primary) hypertension (principal)
CPT/HCPCS: 36415; 80053; 80061; 84443; 85025

== ENCOUNTER 2025-07-08 08:20 | Outpatient (REF) | payer OTHER, SELFPAY ==
--- NOTE | ~2025-07-08 | XR_ITS ---
EXAMINATION: XR HAND 3 OR MORE VIEWS RIGHT HISTORY: M79.642 - Pain in right hand COMPARISON: There are no prior studies available for comparison. FINDINGS: Three views of the right hand are submitted. Osseous mineralization is normal. There is no fracture or dislocation. There is mild narrowing of the interphalangeal joint of the thumb. The soft tissues are unremarkable. XR/XR hand RT min 3V IMPRESSION: Mild degenerative change of the interphalangeal joint of the thumb. Electronically signed by: Kristian Cannon MD 07/08/2025 03:05 PM [facility]
--- OUTSIDE RECORDS SUMMARY | 2025-07-08 08:22 | XMS_ITS | Encounter Summary ---
Author Organization [employer] Address [address] [facility] [address] [place] [address] Care Team Providers Care Fitter Armament Name Role Phone Fela Grajeda MD Primary Care Provider [phone] Encounter Details Date Type Department Care Team (Latest Contact Info) Description 06/21/2025 Results Follow-Up [facility] [address] [place], [place] [id number] Sandra Yeager RN CBC auto differential, Comprehensive Metabolic Panel, Lipid Panel, Standard, TSH with Reflex to Free T4 Social History Tobacco Use Types Packs/Day Years [...] documented as of this encounter Care Teams Fitter Armament Relationship Specialty Start Date End Date Fela Grajeda MD [address] [place] [phone] PCP - General Internal Medicine 07/11/18 documented as of this encounter
--- OUTSIDE RECORDS SUMMARY | 2025-07-08 08:22 | XMS_ITS | Encounter Summary ---
Author Organization [employer] Address [address] [place] [address] [address] [place] [address] Care Team Providers Care Director Of Workforce Development Name Role Phone Fela Grajeda MD Primary Care Provider [phone] Encounter Details Date Type Department Care Team ([facility] st Contact Info) Description 05/02/2025 Orders Only [facility] [address] [place], [place] [phone] Fela Grajeda MD [address] [place] [address] Other fatigue (Primary Dx) Social History Tobacco [...] the past 12 months, has t he [employer] gas, oil or water company threatened to [...] documented as of this encounter Care Teams Director Of Workforce Development Relationship Specialty Start Date End Date Fela Grajeda MD [address] [place] [phone] PCP - General Internal Medicine 07/11/18 documented as of this encounter
--- OUTSIDE RECORDS SUMMARY | 2025-07-08 08:22 | XMS_ITS | Clinical Summary ---
Author Organization [employer] Address [address] [place] [address] 7 [place] [address] Care Team Providers Care Blue Prints Trimmer Name Role Phone Fela Grajeda MD Primary Care Provider [phone] Allergies Active Allergy Reactions Criticality Noted Date Comments Amitriptyline Palpitations Low 01/17/2012 Azithromycin Rash Low Clindamycin Hives 07/07/2022 Erythromycin Hives 07/07/2022 Fluconazole Shortness of breath High 04/27/2016 Hydralazine Swelling 11/14/2023 Hydrochlorothiazide Hives 11/24/2023 Macrolides And Ketolides Hives 07/07/2022 Nortriptyline Palpitations Low 07/07/2022 Prednisone Anxiety Low 07/31/2013 Rofecoxib Rash Low 07/07/2022 Medications Dextromethorpha n-guaiFENesin (Mucinex DM) 30-600 MG tablet sustained-relea se 12 hour 1 tab po q4hrs 28 tablet 07/12/19 24 Active Mometasone Furoate (Asmanex HFA) 100 MCG/ACT aerosolIndicati ons:Seasonal allergies Inhale 100 mcg Once per day. 13 g 11 11/24/19 24 Active albuterol 108 (90 Base) MCG/ACT inhalerIndicati ons:Congestion of nasal sinus,Acute cough Inhale 2 puffs every 4 (four) hours if needed for wheezing. 18 g 06/28/20 24 Active dexAMETHasone (Decadron) 4 MG tablet Take 1 tablet (4 mg) by mouth Once per day for 3 days. 3 tablet 07/16/19 25 Active azelastine (Astelin) 0.1 % nasal sprayIndication s:Subacute pansinusitis Administer 1 spray into each nostril 2 times daily. Use in each nostril as directed 30 mL 12 5 9:54 AM EST 07/25/19 25 026 Active cetirizine (ZyrTEC) 10 MG tabletIndicatio ns:Seasonal allergies TAKE ONE TABLET DAILY 30 tablet 11 01/26/20 25 Active fluticasone (Flonase) 50 MCG/ACT nasal spray INHALE 1 SPRAY IN EACH NOSTRIL ONCE DAILY 16 g 2 03/25/20 25 Active spironolactone (Aldactone) 50 MG tabletIndicatio ns:Primary hypertension Take 1 tablet (50 mg) by mouth Once per day. 30 tablet 11 5 9:54 AM EST 06/13/20 25 026 Active albuterol 108 (90 Base) MCG/ACT inhalerIndicati ons:Seasonal allergies INHALE TWO PUFFS EVERY 4 HOURS NEEDED FOR WHEEZING 8.5 g 1 06/25/20 25 Active albuterol 108 (90 Base) MCG/ACT inhalerIndicati ons:Seasonal allergies INHALE TWO PUFFS EVERY 4 HOURS NEEDED FOR WHEEZING 8.5 g 1 5 9:54 AM EST 02/12/20 25 025 Discontinued losartan (Cozaar) 50 MG tabletIndicatio ns:Primary hypertension Take 1 tablet (50 mg) by mouth Once per day. 30 tablet 11 03/07/20 25 025 Discontinued(S eduar effects) spironolactone (Aldactone) 25 MG tabletIndicatio ns:Primary hypertension Take 1 tablet (25 mg) by mouth Once per day. 30 tablet 11 04/10/20 25 025 Discontinued(T herapy completed) losartan (Cozaar) 25 MG tabletIndicatio ns:Primary hypertension Take 1 tablet (25 mg) by mouth Once per day. 30 tablet 11 04/15/20 25 025 Discontinued(T herapy completed) Hospital, Clinic, or Other Facility Administered Medication [...] Encounters Date Type Department Care Team Description 06/25/2025 Refill [facility] PED[facility] [address] [place] [address] Fela Grajeda MD Seasonal allergies 06/21/2025 Results Follow-Up [facility] [address] [facility] [place] [address] Sandra Yeager RN CBC auto differential, Comprehensive Metabolic Panel, Lipid Panel, Standard, TSH with Reflex to Free T4 06/21/2025 Orders Only [facility] [address] [place] [address] Fela Grajeda MD Macrocytosis (Primary Dx) 06/13/2025 9:30 AM EST Office Visit [facility] [address] [place] [address] Fela Grajeda MD Primary hypertension (Primary Dx) 06/13/2025 Travel 05/02/2025 Orders Only [facility] [address] [place] [address] Fela Grajeda MD Other fatigue (Primary Dx) 05/02/2025 Telephone [facility] MED[facility] [address] [place] [phone] Fela Grajeda MD Medication Question 04/15/2025 Telephone [facility] [address] [place] [address] Fela Grajeda MD Medication Question 04/10/2025 Orders Only [facility] [address] [place] [address] Fela Grajeda MD Primary hypertension (Primary Dx) 04/08/2025 Telephone [facility] [address] [place] [phone] Fela Grajeda MD Medication Question from Last 3 Months Immunizations Immunization Administration [...] Sign Reading Time Taken Comments Blood Pressure 139/97 06/13/2025 9:19 AM EST Pulse 97 06/13/2025 9:19 AM EST Temperature 36.2 C (97.2 F) 06/13/2025 9:19 AM EST Respiratory Rate 20 06/13/2025 9:19 AM EST Oxygen Saturation 98% 06/13/2025 9:19 AM EST Inhaled Oxygen Concentration - - Weight 68.9 kg (152 lb) 06/13/2025 9:19 AM EST Height 154.9 cm (5' 1 ) 06/13/2025 9:19 AM EST Body Mass Index 28.72 06/13/2025 9:19 AM EST Plan of Treatment Health Maintenance Due [...] or Tdap) 01/16/2022 01/17/2012 COVID-19 Vaccine ( season) 2025 05/27/2021, 11/02/2020, 10/10/2020 Disability Screening 07/25/2025 07/25/2024 Alcohol/Substance Use Screening 10/15/2025 10/15/2024 Depression Screening 10/15/2025 10/15/2024, 10/16/19 25 SDOH Screening 10/15/2025 10/15/2024 Influenza Vaccine (#1) 2026 , 05/31/2019, 04/21/2018, Additional history exists Postponed from 03/11/2025 (Patient Refused) Tobacco Screening 06/13/2026 06/13/2025 Mammogram 10/24/2026 10/24/2024, 04, 10/12/2022, Additional history exists Colonoscopy 10/03/2028 Colorectal Cancer Screening 10/03/2028 Lipid Panel 06/20/2030 06/20/2025, 04/0 01/2025, 10/12/2023, Additional history exists RSV Patients and Patients [...] Procedure Name Priority Date/Time Associated Diagnosis Comments TSH W/REFLEX TO FT4 Routine 06/20/2025 8 :23 AM EST Primary hypertension LIPID PANEL, STANDARD Routine 06/20/2025 8:23 AM EST Primary hypertension COMPREHENSIVE METABOLIC PANEL Routine 06/20/2025 8:23 AM EST Primary hypertension CBC WITH AUTO DIFFERENTIAL Routine 06/20/2025 8:23 AM EST Primary hypertension BI MAMMOGRAM SCREENING TOMOSYNTHESIS BILATERAL Routine 10/24/2024 7:45 AM EDT HIV 1/2 ANTIGEN/ANTIBODY, FOURTH GENERATION W/RFL Routine 10/15/2024 10:09 AM EDT Annual physical exam Palpitations ZZZ HISTORICAL HEPATITIS C AB W/REFL TO HCV RNA, QN, PCR Routine 07/13/2021 9:22 AM EST from Last 3 Months or Most Recently Relevant to Health Maintenance Results * TSH with Reflex to Free T4 (06/20/2025 8:23 AM EST) TSH reflex Free T4 1.42 0.32 - 4.0 uIU/mL [facility] Blood Venous blood specimen / Unknown 06/20/2025 8:23 AM EST 06/20/2025 2:57 PM EST us Fela Grajeda MD LAB BLOOD ORDERABLES Final Result [facility] [address] [place] [phone] * (ABNORMAL) CBC auto differential (06/20/2025 8:23 AM EST) White Blood Count 6.7 4.8 - 10.8 X10*3/uL [facility] Red Blood Count 3.91(L) 4.20 - 5.50 X10*6/uL [facility] Hemoglobin 12.6 12.0 - 16.0 g/dl [facility] Hematocrit 38.7 37.0 - 47.0 % [facility] Mean Corpuscular Volume 99.0(H) 80.0 - 98.0 fL [facility] Mean Corpuscular Hemoglobin 32.2 27.0 - 33.0 pg [facility] Mean Corpuscular HGB Conc 32.6 31.0 - 35.0 g/dl [facility] Red Cell Distribution Width 13.0 11.0 - 16.0 % [facility] Platelet Count 278 160 - 400 X10*3/uL [facility] Mean Platelet Volume 10.9 9.4 - 12.3 fL [facility] Neutrophils Percent Auto 58.5 45 - 73 % [facility] Imm Gran Pct Auto 0.1 0.0 - 0.4 % [facility] Lymphocytes Percent Auto 33.8 20 - 40 % [facility] Monocytes Percent Auto 6.4 2 - 11 % [facility] Eosinophils Percent Auto 0.6 0 - 4 % [facility] Basophils Percent Auto 0.6 0 - 2 % [facility] NRBC Pct Auto 0.0 0.0 - 0.2 /100WBC [facility] Neutrophils Absolute Auto 3.9 2.0 - 8.3 x10*3/uL [facility] Imm Gran Abs Auto 0.01 0.00 - 0.03 X10*3/uL [facility] Lymphocytes Absolute Auto 2.3 1.2 - 4.9 X10*3/uL [facility] Monocytes Absolute Auto 0.4 0.1 - 1.2 X10*3/uL [facility] Eosinophils Absolute Auto 0.0 0.0 - 0.4 X10*3/uL [facility] Basophils Absolute Auto 0.0 0.0 - 0.2 X10*3/uL [facility] NRBC Abs Auto 0.000 0.0 - 0.012 X10*3/uL [facility] Blood Venous blood specimen / Unknown 06/20/2025 8:23 AM EST 06/20/2025 2:57 PM EST us Fela Grajeda MD LAB BLOOD ORDERABLES Final Result [facility] [address] [place], [place] [phone] * (ABNORMAL) Lipid Panel, Standard (06/20/2025 8:23 AM EST) Triglycerides 69 <150 mg/dL [facility] Comment:Desirable Triglyceri de: less than 150 mg/dLBorderline High Triglyceride 150-199 mg/dLHigh Triglyceride: 200-499 mg/dLVery High Triglyceride: greater than or equal to 5OO mg/dL Cholesterol 249(H) <200 mg/dL [facility] Comment:Desirable Cholestero l: less than 200 mg/dLBorderline High Cholesterol: 200-239 mg/dLHigh Cholesterol: greater than 239 mg/dL LDL Cholesterol Calculated 148(H) <100 mg/dL [facility] Comment:Desirable LDL: less than 100 mg/dLNear Optimal/Above Optimal LDL: 110- 129 mg/dLBorderline High LDL: 130-159 mg/dLHigh LDL: 160-189 mg/dLVery High LDL: greater than or equal to 190 mg/dL HDL Cholesterol 88 >40 mg/dL [facility] Comment:Desirable HDL: great er than 40 mg/dL Note: This HDL assay may give artificially low results in patients with liver disease. Blood Venous blood specimen / Unknown 06/20/2025 8:23 AM EST 06/20/2025 2:57 PM EST us Fela Grajeda MD LAB BLOOD ORDERABLES Final Result [facility] [address] [place] [phone] [phone] * (ABNORMAL) Comprehensive Metabolic Panel (06/20/2025 8:23 AM EST) Sodium 140 135 - 145 mmol/L [facility] Potassium 3.8 3.3 - 5.1 mmol/L [facility] Chloride 109(H) 96 - 108 mmol/L [facility] Carbon Dioxide 24 22 - 29 mmol/L [facility] Anion Gap 11(L) 12 - 20 [facility] Urea Nitrogen (BUN) 14 9 - 16 mg/dL [facility] Creatinine, Serum 0.76 0.5 - 1.4 mg/dL [facility] Estimated Glomerular Filt Rate >60 [facility] Comment:Chronic Kidney Disea se: Estimated GFR < 60 mL/min/1.00c0Kffelz Kidney Disease: Estimated GFR < 15 mL/min/1.73m2 Glucose 101 60 - 115 mg/dL [facility] Calcium 9.3 8.4 - 10.2 mg/dL [facility] Bilirubin, Total 0.6 0.0 - 1.0 mg/dL [facility] Aspartate Amino Transferase 26 5 - 31 U/L [facility] Alanine Aminotransferase 15 0 - 31 U/L [facility] Total Protein 7.1 6.5 - 8.0 g/dL [facility] Albumin Level 4.5 3.5 - 5.0 g/dL [facility] Alkaline Phosphatase 70 39 - 117 U/L [facility] Blood Venous blood specimen / Unknown 06/20/2025 8:23 AM EST 06/20/2025 2:57 PM EST us Fela Grajeda MD LAB BLOOD ORDERABLES Final Result [facility] [address] [place] [address] [phone] * BI Mammogram Screening Tomosynthesis Bilateral (10/24/2024 7:45 AM EDT) Anatomical Region Laterality Modality Breast Bilateral Mammography 10/24/2024 7:45 AM EDT Narrative 11/03/2024 11:24 AM EDT [facility] [address] [place] [address] Mammography Report Signed Patient: Kenna Guzman MR#: [id number] 36 : 1965 Acct:[id number] Age/Sex: 59 / F ADM Date: 10/24/24 Loc: HO.MAMMO Attending Dr: Fela Grajeda MD Ordering Physician: Fela Grajeda MD Results: 1 Negative Date of Service: 10/24/24 Follow Up: 1 Year From [facility] Mammogram Procedure(s): MM tomosynthesis screening BI Accession Number(s): [id number] cc: Fela Grajeda MD EXAMINATION: MM SCREENING [...] 11/03/24 1121 DD/ 0745 TD/TT: 10/24/24 [phone] Sales Associate Cashier: Procedure Note Donotuseinterpreter, Image - 11/03/2024 [facility] [address] [place] [address] Mammography Report Signed Patient: Kenna GuzmanMR#: [id number] 36 : 1965Acct:[id number] Age/Sex: 59 / FADM Date: 10/24/24 Loc: HO.MAMMO Attending Dr: Fela Grajeda MD Ordering Physician: Fela Grajeda MDResults: 1 Negative Date of Service: 10/24/24Follow Up: 1 Year From [facility] Mammogram Procedure(s): MM tomosynthesis screening BI Accession Number(s): [id number] cc: Fela Grajeda MD EXAMINATION: MM SCREENING [...] 11/03/24 1121 DD/ 0745 TD/TT: 10/24/24 0755 Sales Associate Cashier: us Fela Grajeda MD IMG BI PROCEDURES Edited Re sult - Final * HIV-1/2 Antigen and Antibodies, Fourth Generation, with Reflexes (10/15/2024 10:09 AM EDT) HIV AB/AG Nonreactive Nonreactive [facility] Comment:HIV-1 p24 Ag and/or HIV-1/HIV-2 Ab not detected.A test result that is nonreactive does not exclude thepossibility of exposure to or infection with HIV-1 and/orHIV-2. Nonreactive results in this assay for individualswith prior exposure to HIV-1 and/or HIV-2 may be due toantigen and antibody levels that are below the limit ofdetection of this assay.The [employer] HIV Ag/Ab Combo assay result andsupplemental assay results should be interpreted inconjunction with the patient's clinical presentation,history and other laboratory results. If the results areinconsistent with clinical evidence, additional testing issuggested to confirm the result. Blood Venous blood specimen / Unknown 10/15/2024 10:09 AM EDT 10/15/2024 1:56 PM EDT us Fela Grajeda MD LAB BLOOD ORDERABLES Final Result [facility] [address] [place] [phone] * HEPATITIS C AB W/REFL TO HCV RNA, QN, PCR (07/13/2021 9:22 AM EST) HEPATITIS C ANTIBODY NON-REACT CAIO NON-REACT CAIO [facility] INDEX 0.01 <1.00 [facility] Comment: HCV antibody was non-reactive. There is no laboratory evidence of HCV infection. In most cases, no further action is required. However, if recent HCV exposure is suspected, a test for HCV RNA (test code 09623) is suggested. For additional information please refer to http://education.Claim Maps/faq/VJV02w1 (This link is being provided for informational/ educational purposes only.) 07/13/2021 9:22 AM EST us Fela Grajeda MD HISTORICAL/NON ORDERABLE JULIAN [place] Final Result Performing Organization Address City/State/[facility] Co de Phone Number [facility] [address] from Last 3 Months or Most Recently Relevant to Health Maintenance Insurance [employer] Care Teams Blue Prints Trimmer Relationship Specialty Start Date End Date Fela Grajeda MD [address] [place] [phone] PCP - General Internal Medicine 07/11/18
--- OUTSIDE RECORDS SUMMARY | 2025-07-08 08:22 | XMS_ITS | Data Portability ---
Author Organization [place] [facility] Formerly [facility], Allergy Address [address] [address] Care Team Providers Care Floor Sanding Machine Operator Name Role Phone INDU ROPER Referring Provider [phone] Assessment Encounter Date Assessment Date Assessment LastModified [...] INTERNAL AUDITORY CANAL, W/WO CONTRAST 2024 025 [facility] ([facility]), [address] [place], [address], 13:51:40 CT, sinuses, w/o contrast 2024 025 [facility], [address], [address], 22:36:09 Medication Orders ofloxacin 0.3 % ear drops 2024 025 [id number], [address] [place], [address], 10:14:11 gabapentin 300 mg capsule 2024 025 [facility][id number], [address] [place], [address], 10:16:39 Patient TargetsNo targets recorded. Patient InstructionsNo instructions recorded. Reason for Referral None Reported. Results Created Date Observation Date Name Description Value Unit Range Abnormal Flag Note LastModifiedBy Organization Detail LastModifiedTime 08/04/1908/02/2024 CT, sinus es, w/o contr ast No observ ation record ed. [email or web address] [facility] [address], [address], 08/08/2024 12:48:39 08/04/1908/02/2024 CT, sinus es, w/o contr ast No observ ation record ed. [facility] [address], [address], 08/08/2024 12:47:16 08/16/1908/15/2024 MRI, brain + brain stem, w/wo contr ast [facility] Access ion Number : [id number] Mike holly Name: Guzman , Kathry n Medica l Record Number : [id number] Date of : 1965 Date of Exam: 2024 Referr ing Physic paris: [facility] [address], [place] [address] [place] [address] Exam: MR Brain (C-/C+ ) CPT 68515 Room Descri ption: [place] Siem Verio 3.0T INDICA TION: Left ear tinnit us TECHNI QUE: Multip lanar multis equenc e MRI of the brain using an IAC protoc ol was perfor med before and after the admini strati on of 10 mL of Dotare m. 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 The visual ized brain is unrema rkable . The visual ized ventri cles and sulci normal . The midlin e the struct ures, main vascul ar flow voids, and basal cister ns are normal . There is fluid in inferi or left mastoi d air cells. IMPRES CIERRA: Unrema rkable bilate ral unpaid intern al audito ry canals . Small left mastoi d effusi on. Electr onical ly Signed By: Nicolasa TREVINO [facility] ([facility]) [address], [place], [address], 08/20/2024 12:58:05 08/20/19 25 audio gram No observ ation record ed. BARCODE Not Available 2024 15:37:28 Result Notes Documentation Provider Name and Address Organization Details Recorded Time Mri, Brain + Brain Stem, W/wo Contrast : [facility] Accession Number: [id number] Patient Name: Kenna Guzman Date of : 1965 Date of Exam: 08-15-2024 Referring Physician: Cesar Mishra [facility] [address] [address] Exam: MR Brain (C-/C+) CPT 96243 Room Description: [facility] 3.0T INDICATION: Left ear tinnitus TECHNIQUE: [...] effusion. Electronically Signed By: Nicolasa MISHRA MD [address] [place] [address], [address], [facility] 08/20/2024 12:52:57 Problems Name Problem SNOMED Code Status Onset Date Resolution Date Notes Provider Name and Address Organization Details Recorded Time Atypical facial pain 36539539 Active 2024 CESAR MISHRA MD [address] [place] [address], [address], [facility] - [facility] 5 14:05:05 Sensorineur al hearing loss of bilateral ears 095435890 Active 2024 [address]THEL [address]RAY [address] [place] [address], [address], [facility] - [facility] 5 10:49:21 Tinnitus of left ear 3676142589781 Active 2024 CESAR MISHRA MD [address] [place], [place] [address], [place], [address], [facility] - [facility] [place] 5 11:16:45 Chronic rhinitis 76399217 Active 2024 CESAR MISHRA MD 100 [facility], E [facility], [place], [address], [facility] - [facility] [place] 5 11:17:09 Non-allergi c rhinitis 771845306977 Active 2024 CESAR MISHRA MD 100 [facility], [facility], [place], [address], [facility] - [facility] [place] 5 11:17:20 Allergic rhinitis 07032981 Active 2024 CESAR MISHRA MD 100 [facility], [facility], [place], [address], [facility] - [facility] [place] 5 11:17:20 Seasonal allergic rhinitis 344828061 Active 2024 CESAR MISHRA MD 100 [facility], [facility], [place], [address], [facility] - [facility] 5 11:17:20 Disorder of left Eustachian tube 7993345408958 109 Active 2024 CESAR MISHRA MD 100 [facility], [facility], [place], [address], [facility] [place] 5 16:05:15 Problem Notes None recorded. Procedures Surgical History Date Name Laterality Status Provider Name and Address Organization Details Recorded Time 08/30/19 25 Myringotomy with Aspiration left completed CESAR MISHRA MD 100 [facility],[place] [address], [place], [address], [facility] 09/02/2024 17:24:11 08/10/19 25 Comp Audio with Tymps - 61955 & 26905 completed ETHEL MURRAY 100 [facility],[place] [address], [place], [address], [facility] - [facility] 08/10/2024 10:48:45 07/27/19 25 JMSNasal/Sinus Endoscopy completed CESAR MISHRA MD 100 [facility],[address], [address], [facility] 07/27/2024 14:04:54 hysterectomy completed CESAR MISHRA MD 100 [facility],[address], [address], [facility] 07/27/2024 13:31:56 Imaging Results None recorded. Procedure Notes None recorded. Medical Equipment None Reported. Allergies Allergen ID Allergen Name Allergen Category Reaction Reaction Severity Criticality Documentation Date Start Date Code Code System Note Provider Name and Address Organization Details Recorded Time 422387 azithromy segun medicatio n Not available Not available Not available 07/27/2024 61733 RxNorm Jenny Potvin [place] [facility] 13:23:14 426434 amitripty line medicatio n Not available Not available Not available 07/27/2024 704 RxNorm Jenny Potvin null, [facility] 13:23:23 659038 clindamyc in Not available Not available Not available Not available 07/27/2024 2582 RxNorm Jenny Potvin null, [facility] 13:23:39 139915 prednison e medicatio n Not available Not available Not available 07/27/2024 8640 RxNorm Jenny Potvin null, [place] [facility] 13:23:49 487014 rofecoxib medicatio n Not available Not available Not available 07/27/2024 85496 8 RxNorm Jenny Potvin null, [facility] 5 13:24:01 902685 Substance with macrolide structure and antibacte rial mechanism of action (substanc e) medicatio n Not available Not available Not available 07/27/2024 89475 0009 SNOMED Jenny Potvin null, [place] [facility] 5 13:24:13 351667 erythromy segun medicatio n Not available Not available Not available 07/27/2024 4053 RxNorm Jenny [place] [facility] [place] 5 13:24:35 664441 nortripty line medicatio n Not available Not available Not available 07/27/2024 7531 RxNorm Jenny wat[place], [place] [facility] 13:24:44 763162 hydralazi ne medicatio n Not available Not available Not available 07/27/2024 5470 RxNorm Jenny Raul null, [place] [facility] 5 13:24:53 940960 hydrochlo rothiazid e medicatio n Not available Not available Not available 07/27/2024 5487 RxNorm Jenny watkins, [place] [facility] 13:25:10 679939 fluconazo le medicatio n Not available Not available Not available 07/27/2024 4450 RxNorm Jenny Carter [place] [facility] 13:25:22 Medications Name Sig Start Date [...] Updated DateTime 07/27/2024 154.94 cm 26.5 kg/m2 97004.93 g Jenny Carter [place] - [facility] 07/27/2024 13:20:28 Date Recorded Body height Body mass index (BMI) Body weight Provider Name and Address Organization Details Last Updated DateTime 08/10/2024 154.94 cm 26.3 kg/m2 83077.34 g Jenny Carter [place] [facility] 08/10/2024 10:16:23 Date Recorded Body height Body mass index (BMI) Body weight Provider Name and Address Organization Details Last Updated DateTime 08/30/2024 154.94 cm 26.6 kg/m2 23641.52 g Jenny Carter [place] [facility] 08/30/2024 15:50:20 Date Recorded Body height Body mass index (BMI) Body weight Provider Name and Address Organization Details Last Updated DateTime 09/28/2024 154.94 cm 26.6 kg/m2 17199.52 g Jenny Carter [place] [facility] 09/28/2024 10:14:01 Social History Question Answer Notes LastModified by Organizat ion Details LastModified Time Tobacco Smoking Status Former Smoker CESAR MISHRA MD [address] [place] [address], [address], [facility] - [facility] 07/27/2024 13:31:44 When Did You Quit [...] ICD10 Code Diagnosis IMO Codes Diagnosis Note [id number] CESAR MISHRA MD [facility] [address] [address] 07/27/2024 13:16:55 07/27/2024 14:09:51 Atypical facial pain 06403928 G50.1 No evidence of bacterial infection on [...] s, but agrees to try gabapentin again. [id number] CESAR MISHRA MD [facility] [address] [address] 08/10/2024 10:10:09 08/10/2024 13:04:08 Sensorineural hearing loss of bilateral ears 014916367 H90.3 Audiologic al evaluation results: Right ear: Essentiall y normal hearing with the exception of a moderately -severe SNHL at 8000Hz with excellent word recognitio n. Left ear: Essentiall y normal sloping to moderately severe sensorineu ral hearing loss with excellent word recognitio n. Tympanomet ry: Right Ear:Type Ad Left Ear:Type A Tinnitus of left ear 507 8911708 106 H93.12 Chronic rhinitis 8491738 6 J31.0 [id number] CESAR MISHRA MD [facility] [address] [address] 08/30/2024 15:44:37 08/30/2024 16:11:56 Disorder of left Eustachian tube 0461805858 314871 H69.92 59-year-ol d female with left-sided head [...] does, we can proceed with tube placement. [id number] CESAR MISHRA MD [facility] [address] [address] 09/28/2024 09:50:16 09/28/2024 10:28:10 Disorder of left Eustachian tube 0681594398 203303 H69.92 Symptoms are markedly improved after myringotom [...] Member ID Guarantor Name 11/16/2024 1 [id number] Kenna Guzman [id number] 1 Kenna Guzman Notes Date Note Type Note Provider Name and Address Organization Details Recorded Time 5 text/html ROS as noted in the HPI 59 yo F with acute sinus symptoms. started itching in the earheadachestinnitus on the left Had XR at [place] which looked normal left extending to ear cough betterno meds now a couple abx but did not help augmentin and then a second with steroidoriginally infected tooth, now a new root canal mandibular usually 3-4 sinus infections per year here 10 years ago (Kenna Nielsen chart 268821) CT negativeBeer and mold positive for allergy testing , has been on flonase prednisone allergynortriptyline allergygabapentin did not seem to help in past has been on sudafed and mucinex CESAR MISHRA MD [address] [place] [address], [address], [facility] - [facility] 08/08/2024 12:44:27 5 text/html ROS as noted in the HPI No improvement in symptoms. She is very distressed by her symptoms. PV: 59 yo F with acute sinus symptoms. started itching in the earheadachestinnitus on the left Had XR at [place] which looked normal left extending to ear cough betterno meds now a couple abx but did not help augmentin and then a second with steroidoriginally infected tooth, now a new root canal mandibular usually 3-4 sinus infections per year here 10 years ago (Kenna Nielsen chart 284679) CT negativeBeer and mold positive for allergy testing , has been on flonase prednisone allergynortriptyline allergygabapentin did not seem to help in past has been on sudafed and mucinex CESAR MISHRA MD 100 [facility],[address], [address], [place] [facility] 08/14/2024 08:32:26 5 text/html 59-year-old female presents today for follow-up. Her MRI did not show any concerning findings, but did show some fluid in a few of the left sided air cells. CESAR MISHRA MD 100 [facility],[address], [address], [place] - [facility] 09/02/2024 17:25:28 5 text/html ROS as noted in the HPI Dizziness is gone, pressure 80% better.Second drops made a difference in the ear almost immediately. CESAR MISHRA MD 100 [facility],[place] [address], [place], [address], [place] [facility] 09/28/2024 10:29:29 OBGyn Episode No OBEpisode recorded.
--- OUTSIDE RECORDS SUMMARY | 2025-07-08 08:22 | XMS_ITS | Encounter Summary ---
Author Organization [employer] Address 75 [facility] 7 [place] [address] Care Team Providers Care Reimbursement Rep Name Role Phone Fela Grajeda MD Primary Care Provider [phone] Encounter Details Date Type Department Care Team ([facility] st Contact Info) Description 03/01/2025 Orders Only [facility] [address] [place], [place] [phone] Fela Grajeda MD [address] [place] [address] Primary hypertension (Primary Dx) Social History Tobacco [...] documented as of this encounter Care Teams Reimbursement Rep Relationship Specialty Start Date End Date Fela Grajeda MD [address] [place] [address] PCP - General Internal Medicine 07/11/18 documented as of this encounter
--- OUTSIDE RECORDS SUMMARY | 2025-07-08 08:22 | XMS_ITS | Encounter Summary ---
Author Organization [employer] Address [address] [place] [address] Care Team Providers Care Photoengraving Helper Name Role Phone Fela Grajeda MD Primary Care Provider [phone] Reason for Visit * Reason Onset Date Comments Med Refill 03/07/2025 Encounter Details Date Type Department Care Team ([facility] st Contact Info) Description 03/07/2025 Telephone [facility] [address] [place] [address] Fela Grajeda MD [address] [place] [address] Med Refill Social History Tobacco Use Types [...] 50 MG tablet To be sent to: [facility] - [place], [place] - [address] [place] [address] St documented in this encounter Plan of Treatment Not on file documented as of this encounter Visit Diagnoses Not on filedocumented in this encounter Additional Health Concerns Assessment Noted Time PHQ-9 Depression Total Score: 7 10/16/19 9:53 AM EDT documented as of this encounter Care Teams Photoengraving Helper Relationship Specialty Start Date End Date Fela Grajeda MD [address] [place] [address] PCP - General Internal Medicine 07/11/18 documented as of this encounter
--- OUTSIDE RECORDS SUMMARY | 2025-07-08 08:22 | XMS_ITS | Encounter Summary ---
Author Organization [employer] Address 75 [facility] [address] [place] [address] Care Team Providers Care Orthopaedic Doctor Name Role Phone Fela Grajeda MD Primary Care Provider [phone] Encounter Details Date Type Department Care Team ([facility] st Contact Info) Description 04/10/2025 Orders Only [facility] MED & PEDS [address] [place], [place] [phone] Fela Grajeda MD [address] [place] [address] Primary hypertension (Primary Dx) Social History Tobacco [...] documented as of this encounter Care Teams Orthopaedic Doctor Relationship Specialty Start Date End Date Fela Grajeda MD [address] [place] [address] PCP - General Internal Medicine 07/11/18 documented as of this encounter
--- OUTSIDE RECORDS SUMMARY | 2025-07-08 08:22 | XMS_ITS | Encounter Summary ---
Author Organization [employer] Address [address] [place] [address] [address] [place] [address] Care Team Providers Care Ship Ceiler Name Role Phone Fela Grajeda MD Primary Care Provider [phone] Encounter Details Date Type Department Care Team ([facility] st Contact Info) Description 06/21/2025 Orders Only [facility] [address] [place] [address] Fela Grajeda MD [address] [place] [address] Macrocytosis (Primary Dx) Social History Tobacco Use [...] B12/Folate, Serum Panel Lab Routine Macrocytosis Expected: 06/25/2025 (Approximate), Expires: 06/25/2026 documented as of this encounter Visit Diagnoses Diagnosis Macrocytosis- Primary Other specified diseases of blood and blood-forming organs documented in this encounter Additional Health Concerns Assessment Noted Time PHQ-9 Depression Total Score: 7 10/16/19 25 9:53 AM EDT documented as of this encounter Care Teams Ship Ceiler Relationship Specialty Start Date End Date Fela Grajeda MD [address] [place] [address] PCP - General Internal Medicine 07/11/18 documented as of this encounter
--- OUTSIDE RECORDS SUMMARY | 2025-07-08 08:22 | XMS_ITS | Encounter Summary ---
Author Organization [employer] Address [address] [place] [address] Care Team Providers Care Edge Gluer Name Role Phone Fela Grajeda MD Primary Care Provider [phone] Reason for Visit * Reason Comments Med Refill Encounter Details Date Type Department Care Team ([facility] Contact Info) Description 01/09/2024 Refill [facility]S [address] [place] [address] Fela Grajeda MD [address] [place] [address] Seasonal allergies Social History Tobacco Use Types [...] documented as of this encounter Care Teams Edge Gluer Relationship Specialty Start Date End Date Fela Grajeda MD [address] [place] [address] PCP - General Internal Medicine 07/11/18 documented as of this encounter
--- OUTSIDE RECORDS SUMMARY | 2025-07-08 08:22 | XMS_ITS | Encounter Summary ---
Author Organization [employer] Address 75 [facility] [address] [place] [address] Care Team Providers Care [facility] Name Role Phone Fela Grajeda MD Primary Care Provider [phone] Encounter Details Date Type Department Care Team ([facility] st Contact Info) Description 11/01/2024 Orders Only [facility] CH[facility] MED & PEDS [address] [place], [place] [phone] Fela Grajeda MD [address] [place] [address] Social History Tobacco Use Types Packs/Day Years [...] documented as of this encounter Care Teams [facility] Relationship Specialty Start Date End Date Fela Grajeda MD [address] [place] [address] PCP - General Internal Medicine 07/11/18 documented as of this encounter
--- OUTSIDE RECORDS SUMMARY | 2025-07-08 08:22 | XMS_ITS | Encounter Summary ---
Author Organization [employer] Address [address] [place] [address] [address] [place] [address] Care Team Providers Care Process Server Name Role Phone Fela Grajeda MD Primary Care Provider [phone] Encounter Details Date Type Department Care Team ([facility] st Contact Info) Description 10/16/2024 Orders Only [facility] MED & PEDS [address] [place] [address] Fela Grajeda MD [address] [place] [address] Macrocytosis (Primary Dx) Social History Tobacco Use [...] EDT Narrative 11/03/2024 11:24 AM EDT [facility] [address] [place] [address] Mammography Report Signed Patient: Kenna Guzman MR#: [id number] 36 : 1965 Acct:[id number] Age/Sex: 59 / F ADM Date: 10/24/24 Loc: MAMMO Attending Dr: Fela Grajeda MD Ordering Physician: Fela Grajeda MD Results: 1 Negative Date of Service: 10/24/24 Follow Up: 1 Year From Orig ina Mammogram Procedure(s): MM tomosynthesis screening BI Accession Number(s): [id number] cc: Fela Grajeda MD EXAMINATION: MM SCREENING [...] 11/03/24 1121 DD/ 0745 TD/TT: 10/24/24 0755 Solid State Tester: Procedure Note Donotuseinterpreter, Image - [facility]/03/[facility] [address] [place], [place] [address] Mammography Report Signed Patient: Kenna GuzmanMR#: [id number] 36 : 1965Acct:[id number] Age/Sex: 59 / FADM Date: 10/24/24 Loc: MAMMO Attending Dr: Fela Grajeda MD Ordering Physician: Fela Grajeda MDResults: 1 Negative Date of Service: 10/24/24Follow Up: 1 Year From Orig inal Mammogram Procedure(s): MM tomosynthesis screening BI Accession Number(s): [id number] cc: Fela Grajeda MD EXAMINATION: MM SCREENING [...] 11/03/24 1121 DD/ 0745 TD/TT: 10/24/24 0755 Solid State Tester: Fela Grajeda MD IMG BI PROCEDURES Edited Re sult - Final documented in this encounter Visit Diagnoses Diagnosis Macrocytosis- Primary Other specified diseases of blood and blood-forming organs documented in this encounter Additional Health Concerns Assessment Noted Time PHQ-9 Depression Total Score: 7 10/16/19 25 9:53 AM EDT documented as of this encounter Care Teams Process Server Relationship Specialty Start Date End Date Fela Grajeda MD [address] [place] [address] PCP - General Internal Medicine 07/11/18 documented as of this encounter
--- OUTSIDE RECORDS SUMMARY | 2025-07-08 08:22 | XMS_ITS | Clinical Summary ---
Author Organization [employer] [facility] Address [address] [place] [address] Care Team Providers Care Chocolate Refining Roller Name Role Phone Unavailable Primary Care Provider Unavailabl e Surgical History Surgery Date Site/Laterality Comments HYSTERECTOMY PROCEDURE: HISTORICAL HYSTERECTOMY Medical History Medical History Date Comments Pure hypercholesterolemia 12/21/2006 DX:Pur e hypercholesterolemia Unspecified asthma(493.90) 12/29/2006 DX:Un specified asthma(493.90) Family History Relation Name Status Comments Aunt [place] Father Alive CVA Mother Alive High cholestero l Sister Alive Uncle 1 [place] Uncle 2 [place] Uncle 3 [place] Social History Tobacco Use Types Packs/Day Years Used Date Smoking Tobacco: Former Alcohol Use Standard Drinks/Week Comments Yes 0 (1 standard drink = 0.6 oz pur e alcohol) Comments Unknown Sex and Gender Information Value Date Recorded Sex Assigned at Not on file Legal Sex Female 12:36 AM EST Gender Identity Not on file Sexual Orientation Not on file Plan of Treatment Health Maintenance Due Date [...] 05/27/2021, 11/02/2020, 10/10/2020 Influenza Vaccine (#1) 2025 2, 05/31/2019, 04/21/2018, Additional history exists Hypertension/CHF/CAD Annual [...]
--- OUTSIDE RECORDS SUMMARY | 2025-07-08 08:23 | XMS_ITS | Clinical Summary ---
Author Organization [facility] Prior to 12/08/24 Address [address] [place] [address] Care Team Providers Care Automatic Lathe Setter Name Role Phone Unknown, Primary Care Provider [...] age to complete this topic Care Teams Automatic Lathe Setter Relationship Specialty Start Date End Date Unknown, PCP - General 09/09/21
== END 2025-07-08 08:21 | disposition home or self-care (01) ==
LOC: HO.HOSX 08:20
DX: M65.341 Trigger finger, right ring finger (principal)
CPT/HCPCS: 20550; 73130

== ENCOUNTER 2025-07-08 14:45 | Outpatient (AMB) | payer OTHER, SELFPAY ==
--- NOTE | 2025-07-08 14:55 | A.OFFVIS_ITS ---
Vital Signs 07/08/25 14:59 Height 5 ft 1 in Weight 150 lb BMI 28.3 Intake Visit Reasons: Newprob-right hand pain Intake Note: Kenna is a 59 year old right hand dominant female who presents today for a New Problem Visit complaining of Right Hand Pain. At today's visit she states that the right ring finger is locking and catching for the past year. She reports that she was given a cortisone injection in the right ring finger which gave relief. Patient then reports that the right thumb has a small bump that causes a jolt of pain when pressure is applied. Allergies clindamycin Allergy (Verified 06/04/25 12:53) Hives Macrolide Antibiotics Allergy (Verified 06/04/25 12:53) Hives prednisone Allergy (Verified 06/04/25 12:53) Palpitations Amytryplines Allergy (Unknown, Uncoded 06/04/25 12:53) heart palpations Z-packs Allergy (Unknown, Uncoded 06/04/25 12:53) Hives HPI HPI Newprob-right hand pain: Details: Kenna is a 59 year old right hand dominant female who presents today for a New Problem Visit complaining of Right Hand Pain. At today's visit she states that the right ring finger is locking and catching for the past year. She reports that she was given a cortisone injection in the right ring finger which gave relief. Patient then reports that the right thumb has a small bump that causes a jolt of pain when pressure is applied. Patient states she is interested in injection. No other acute complaints or concerns at this time. 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 Neuro: Normal sensation of the tips of all digits of the right hand at this time Vascular: Cap refill brisk Pain: Tenderness to palpation of the A1 heather of right ring finger Pain associated with locking and catching of the right ring finger ROM: Locking and catching of the right ring finger in a flexed position noted Skin: No lacerations or abrasions. General: No ecchymosis, erythema, or evidence of infection. Psych: Appears grossly normal Affect normal Attitude cooperative Office Procedures AMB Tendon Injection Tendon Injection [id number] Tendon Sheath Injection All charges added?: Procedure code (CPT) selection complete Assessment & Plan Assessment & Plan (1) Trigger finger, right ring finger: Code(s): M65.341 - Trigger finger, right ring finger Category: Medical Plan 1. Right ring finger trigger finger The risks and benefits of a steroid injection including but not limited to risk of damage to blood vessels, nerves, tendons, infection, skin bleaching, failure to improve symptoms, increased pain, and possible need for further injections or other intervention were discussed with the patient and the patient wishes to proceed with the steroid injection. Once consent was obtained, I sterilely prepped the area over the A1 heather of the flexor tendon sheath of the right ring finger. I then injected the flexor tendon sheath with a combination of 1 mL of dexamethasone (4mg/ml), and 1% lidocaine. The patient tolerated the procedure well with no complications. If the patient continues to have locking and catching 4-6 weeks following this injection, they may call to schedule appointment to discuss alternative treatment options Follow-up prn Coding Level of Care Code Est Pt Level 3 (12557) Diagnoses Trigger finger, right ring finger M65.341 CPT Codes Tendon Injection - Tendon Injection 1: [id number] Tendon Sheath Injection ([id number])
[2025-07-08 14:59] VITALS: BMI 28.3
--- OUTSIDE RECORDS SUMMARY | 2025-07-08 17:06 | XMS_ITS | Encounter Summary ---
Author Organization [employer] Address [address] [place] [address] [address] [place] [address] Care Team Providers Care Health Program Specialist Name Role Phone Fela Grajeda MD Primary Care Provider [phone] Encounter Details Date Type Department Care Team ([facility] st Contact Info) Description 10/16/2024 Orders Only [facility] MED & PEDS [address] [place] [address] Fela Grajeda MD [address] [place] [address] Macrocytosis (Primary Dx) Social History Tobacco Use [...] EDT Narrative 11/03/2024 11:24 AM EDT [facility] [address] [place] [address] Mammography Report Signed Patient: Kenna Guzman MR#: [id number] 36 : 1965 Acct:[id number] Age/Sex: 59 / F ADM Date: 10/24/24 Loc: MAMMO Attending Dr: Fela Grajeda MD Ordering Physician: Fela Grajeda MD Results: 1 Negative Date of Service: 10/24/24 Follow Up: 1 Year From Orig ina Mammogram Procedure(s): MM tomosynthesis screening BI Accession Number(s): [id number] cc: Fela Grajeda MD EXAMINATION: MM SCREENING [...] 11/03/24 1121 DD/ 0745 TD/TT: 10/24/24 0755 Quarter Supervisor: Procedure Note Donotuseinterpreter, Image - 11/03/2024 [facility] [address] [place], [place] [address] Mammography Report Signed Patient: Kenna GuzmanMR#: [id number] 36 : 1965Acct:[id number] Age/Sex: 59 / FADM Date: 10/24/24 Loc: MAMMO Attending Dr: Fela Grajeda MD Ordering Physician: Fela Grajeda MDResults: 1 Negative Date of Service: 10/24/24Follow Up: 1 Year From Orig inal Mammogram Procedure(s): MM tomosynthesis screening BI Accession Number(s): [id number] cc: Fela Grajeda MD EXAMINATION: MM SCREENING [...] 11/03/24 1121 DD/ 0745 TD/TT: 10/24/24 0755 Quarter Supervisor: Fela Grajeda MD IMG BI PROCEDURES Edited Re sult - Final documented in this encounter Visit Diagnoses Diagnosis Macrocytosis- Primary Other specified diseases of blood and blood-forming organs documented in this encounter Additional Health Concerns Assessment Noted Time PHQ-9 Depression Total Score: 7 10/16/19 25 9:53 AM EDT documented as of this encounter Care Teams Health Program Specialist Relationship Specialty Start Date End Date Fela Grajeda MD [address] [place] [address] PCP - General Internal Medicine 07/11/18 documented as of this encounter
--- OUTSIDE RECORDS SUMMARY | 2025-07-08 17:06 | XMS_ITS | Clinical Summary ---
Author Organization [employer] Address [address] [place] [address] 7 [place] [address] Care Team Providers Care Physicians And Surgeons Name Role Phone Fela Grajeda MD Primary Care Provider [phone] Allergies Active Allergy Reactions Criticality Noted Date [...] Type Department Care Team Description 06/25/2025 Refill [facility] MED & PEDS [address] [place] [address] Fela Grajeda MD Seasonal allergies 06/21/2025 Results Follow-Up [facility] [address] [facility] [place] [address] Sandra Yeager RN CBC auto differential, Comprehensive Metabolic Panel, Lipid Panel, Standard, TSH with Reflex to Free T4 06/21/2025 Orders Only [facility] [address] [place] [address] Fela Grajeda MD Macrocytosis (Primary Dx) 06/13/2025 9:30 AM EST Office Visit [facility] [address] [place] [address] Fela Grajeda MD Primary hypertension (Primary Dx) 06/13/2025 Travel 05/02/2025 Orders Only [facility] [address] [place] [address] Fela Grajeda MD Other fatigue (Primary Dx) 05/02/2025 Telephone [facility] [address] [place] [address] Fela Grajeda MD Medication Question 04/15/2025 Telephone [facility] [address] [place] [address] Fela Grajeda MD Medication Question 04/10/2025 Orders Only [facility] [address] [place] [address] Fela Grajeda MD Primary hypertension (Primary Dx) 04/08/2025 Telephone [facility] [address] [place] [address] Fela Grajeda MD Medication Question from Last [...] Free T4 1.42 0.32 - 4.0 uIU/mL [facility] Blood Venous blood specimen / Unknown 06/20/2025 8:23 AM EST 06/20/2025 2:57 PM EST us Fela Grajeda MD LAB BLOOD ORDERABLES Final Result [facility] [address] [place] [phone] * (ABNORMAL) CBC auto differential (06/20/2025 8:23 AM EST) White Blood Count 6.7 4.8 - 10.8 X10*3/uL [facility] Red Blood Count 3.91(L) 4.20 - 5.50 X10*6/uL [facility] Hemoglobin 12.6 12.0 - 16.0 g/dl [facility] Hematocrit 38.7 37.0 - 47.0 % [facility] Mean Corpuscular Volume 99.0(H) 80.0 - 98.0 fL [facility] Mean Corpuscular Hemoglobin 32.2 27.0 - 33.0 pg [facility] Mean Corpuscular HGB Conc 32.6 31.0 - 35.0 g/dl [facility] Red Cell Distribution Width 13.0 11.0 - 16.0 % [facility] Platelet Count 278 160 - 400 X10*3/uL [facility] Mean Platelet Volume 10.9 9.4 - 12.3 fL [facility] Neutrophils Percent Auto 58.5 45 - 73 % [facility] Imm Gran Pct Auto 0.1 0.0 - 0.4 % [facility] Lymphocytes Percent Auto 33.8 20 - 40 % [facility] Monocytes Percent Auto 6.4 2 - 11 % [facility] Eosinophils Percent Auto 0.6 0 - 4 % [facility] Basophils Percent Auto 0.6 0 - 2 % [facility] NRBC Pct Auto 0.0 0.0 - 0.2 /100WBC [facility] Neutrophils Absolute Auto 3.9 2.0 - 8.3 x10*3/uL [facility] Imm Gran Abs Auto 0.01 0.00 - 0.03 X10*3/uL [facility] Lymphocytes Absolute Auto 2.3 1.2 - 4.9 X10*3/uL [facility] Monocytes Absolute Auto 0.4 0.1 - 1.2 X10*3/uL [facility] Eosinophils Absolute Auto 0.0 0.0 - 0.4 X10*3/uL [facility] Basophils Absolute Auto 0.0 0.0 - 0.2 X10*3/uL [facility] NRBC Abs Auto 0.000 0.0 - 0.012 X10*3/uL [facility] Blood Venous blood specimen / Unknown 06/20/2025 8:23 AM EST 06/20/2025 2:57 PM EST us Fela Grajeda MD LAB BLOOD ORDERABLES Final Result [facility] [address] [place], [place] [phone] * (ABNORMAL) Lipid Panel, Standard (06/20/2025 8:23 AM EST) Triglycerides 69 <150 mg/dL [facility] Comment:Desirable Triglyceri de: less than 150 mg/dLBorderline High Triglyceride 150-199 mg/dLHigh Triglyceride: 200-499 mg/dLVery High Triglyceride: greater than or equal to 5OO mg/dL Cholesterol 249(H) <200 mg/dL [facility] Comment:Desirable Cholestero l: less than 200 mg/dLBorderline High Cholesterol: 200-239 mg/dLHigh Cholesterol: greater than 239 mg/dL LDL Cholesterol Calculated 148(H) <100 mg/dL [facility] Comment:Desirable LDL: less than 100 mg/dLNear Optimal/Above Optimal LDL: 110- 129 mg/dLBorderline High LDL: 130-159 mg/dLHigh LDL: 160-189 mg/dLVery High LDL: greater than or equal to 190 mg/dL HDL Cholesterol 88 >40 mg/dL [facility] Comment:Desirable HDL: great er than 40 mg/dL Note: This HDL assay may give artificially low results in patients with liver disease. Blood Venous blood specimen / Unknown 06/20/2025 8:23 AM EST 06/20/2025 2:57 PM EST us Fela Grajeda MD LAB BLOOD ORDERABLES Final Result [facility] [address] [place] [address] [phone] * (ABNORMAL) Comprehensive Metabolic Panel (06/20/2025 8:23 AM EST) Sodium 140 135 - 145 mmol/L [facility] Potassium 3.8 3.3 - 5.1 mmol/L [facility] Chloride 109(H) 96 - 108 mmol/L [facility] Carbon Dioxide 24 22 - 29 mmol/L [facility] Anion Gap 11(L) 12 - 20 [facility] Urea Nitrogen (BUN) 14 9 - 16 mg/dL [facility] Creatinine, Serum 0.76 0.5 - 1.4 mg/dL [facility] Estimated Glomerular Filt Rate >60 [facility] Comment:Chronic Kidney Disea se: Estimated GFR < 60 mL/min/1.59s6Gmxsaa Kidney Disease: Estimated GFR < 15 mL/min/1.73m2 Glucose 101 60 - 115 mg/dL [facility] Calcium 9.3 8.4 - 10.2 mg/dL [facility] Bilirubin, Total 0.6 0.0 - 1.0 mg/dL [facility] Aspartate Amino Transferase 26 5 - 31 U/L [facility] Alanine Aminotransferase 15 0 - 31 U/L [facility] Total Protein 7.1 6.5 - 8.0 g/dL [facility] Albumin Level 4.5 3.5 - 5.0 g/dL [facility] Alkaline Phosphatase 70 39 - 117 U/L [facility] Blood Venous blood specimen / Unknown 06/20/2025 8:23 AM EST 06/20/2025 2:57 PM EST us Fela Grajeda MD LAB BLOOD ORDERABLES Final Result [facility] [address] [place] [address] [phone] * BI Mammogram Screening Tomosynthesis Bilateral (10/24/2024 7:45 AM EDT) Anatomical Region Laterality Modality Breast Bilateral Mammography 10/24/2024 7:45 AM EDT Narrative 11/03/2024 11:24 AM EDT [facility] [address] [place] [address] Mammography Report Signed Patient: Kenna Guzman MR#: [id number] 36 : 1965 Acct:[id number] Age/Sex: 59 / F ADM Date: 10/24/24 Loc: HO.MAMMO Attending Dr: Fela Grajeda MD Ordering Physician: Fela Grajeda MD Results: 1 Negative Date of Service: 10/24/24 Follow Up: 1 Year From [facility] Mammogram Procedure(s): MM tomosynthesis screening BI Accession Number(s): [id number] cc: Fela Grajeda MD EXAMINATION: MM SCREENING [...] 11/03/24 1121 DD/ 0745 TD/TT: 10/24/24 0755 Skiving Machine Operator: Procedure Note Donotuseinterpreter, Image - 11/03/2024 [facility]'s [address] [place] [address] Mammography Report Signed Patient: Kenna GuzmanMR#: [id number] 36 : 1965Acct:[id number] Age/Sex: 59 / FADM Date: 10/24/24 Loc: HO.MAMMO Attending Dr: Fela Grajeda MD Ordering Physician: Fela Grajeda MDResults: 1 Negative Date of Service: 10/24/24Follow Up: 1 Year From [facility] Mammogram Procedure(s): MM tomosynthesis screening BI Accession Number(s): [id number] cc: Fela Grajeda MD EXAMINATION: MM SCREENING [...] 11/03/24 1121 DD/ 0745 TD/TT: 10/24/24 0755 Skiving Machine Operator: us Fela Grajeda MD IMG BI PROCEDURES Edited Re sult - Final * HIV-1/2 Antigen and Antibodies, Fourth Generation, with Reflexes (10/15/2024 10:09 AM EDT) HIV AB/AG Nonreactive Nonreactive [facility] Comment:HIV-1 p24 Ag and/or HIV-1/HIV-2 Ab not detected.A test result that is nonreactive does not exclude thepossibility of exposure to or infection with HIV-1 and/orHIV-2. Nonreactive results in this assay for individualswith prior exposure to HIV-1 and/or HIV-2 may be due toantigen and antibody levels that are below the limit ofdetection of this assay.The [employer] HIV Ag/Ab Combo assay result andsupplemental assay results should be interpreted inconjunction with the patient's clinical presentation,history and other laboratory results. If the results areinconsistent with clinical evidence, additional testing issuggested to confirm the result. Blood Venous blood specimen / Unknown 10/15/2024 10:09 AM EDT 10/15/2024 1:56 PM EDT us Fela Grajeda MD LAB BLOOD ORDERABLES Final Result [facility] [address] [place] [phone] * HEPATITIS C AB W/REFL TO HCV RNA, QN, PCR (07/13/2021 9:22 AM EST) HEPATITIS C ANTIBODY NON-REACT CAIO NON-REACT CAIO [facility] INDEX 0.01 <1.00 [facility] Comment: HCV antibody was non-reactive. There is no laboratory evidence of HCV infection. In most cases, no further action is required. However, if recent HCV exposure is suspected, a test for HCV RNA (test code 08693) is suggested. For additional information please refer to http://education.[employer]/faq/MMC73o0 (This link is being provided for informational/ educational purposes only.) 07/13/2021 9:22 AM EST us Fela Grajeda MD HISTORICAL/NON ORDERABLE JULIAN [place] Final Result Performing Organization Address City/State/[facility] Co de Phone Number [facility] [address] from Last 3 Months or Most Recently Relevant to Health Maintenance Insurance [employer] Care Teams Physicians And Surgeons Relationship Specialty Start Date End Date Fela Grajeda MD [address] [place] [address] PCP - General Internal Medicine 07/11/18
--- OUTSIDE RECORDS SUMMARY | 2025-07-08 17:06 | XMS_ITS | Encounter Summary ---
Author Organization [employer] Address [address] [facility] [address] [place] [address] Care Team Providers Care Clerical Adjudicator Name Role Phone Fela Grajeda MD Primary Care Provider [phone] Encounter Details Date Type Department Care Team ([facility] st Contact Info) Description 03/01/2025 Orders Only [facility] MED & PEDS [address] [place], [place] [phone] Fela Grajeda MD [address] [place] [address] Primary hypertension (Primary Dx) Social History Tobacco [...] documented as of this encounter Care Teams Clerical Adjudicator Relationship Specialty Start Date End Date Fela Grajeda MD [address] [place] [address] PCP - General Internal Medicine 07/11/18 documented as of this encounter
--- OUTSIDE RECORDS SUMMARY | 2025-07-08 17:06 | XMS_ITS | Encounter Summary ---
Author Organization [employer] Address [address] [place] [address] [address] [place] [address] Care Team Providers Care Research Geneticist Name Role Phone Fela Grajeda MD Primary Care Provider [phone] Encounter Details Date Type Department Care Team ([facility] st Contact Info) Description 05/02/2025 Orders Only [facility] MED & PEDS [address] [place], [place] [phone] Fela Grajeda MD [address] [place] [address] Other fatigue (Primary Dx) Social History Tobacco [...] the past 12 months, has t he [employer], gas, oil or water company threatened to [...] documented as of this encounter Care Teams Research Geneticist Relationship Specialty Start Date End Date Fela Grajeda MD [address] [place] [address] PCP - General Internal Medicine 07/11/18 documented as of this encounter
--- OUTSIDE RECORDS SUMMARY | 2025-07-08 17:06 | XMS_ITS | Clinical Summary ---
Author Organization [facility] Prior to 12/08/24 Address [address] [place] [address] Care Team Providers Care Steward/Stewardess Name Role Phone Unknown, Primary Care Provider [...] age to complete this topic Care Teams Steward/Stewardess Relationship Specialty Start Date End Date Unknown, PCP - General 09/09/21
--- OUTSIDE RECORDS SUMMARY | 2025-07-08 17:06 | XMS_ITS | Encounter Summary ---
Author Organization [employer] Address [address] [facility] 7 [place] [address] Care Team Providers Care Automation Qa Lead Name Role Phone Fela Grajeda MD Primary Care Provider [phone] Encounter Details Date Type Department Care Team ([facility] st Contact Info) Description 04/10/2025 Orders Only [facility] CH[facility] MED & PEDS [address] [place], [place] [phone] Fela Grajeda MD [address] [place] [address] Primary hypertension (Primary Dx) Social History Tobacco [...] documented as of this encounter Care Teams Automation Qa Lead Relationship Specialty Start Date End Date Fela Grajeda MD [address] [place] [address] PCP - General Internal Medicine 07/11/18 documented as of this encounter
--- OUTSIDE RECORDS SUMMARY | 2025-07-08 17:06 | XMS_ITS | Encounter Summary ---
Author Organization [employer] Address [address] [facility] [address] [place] [address] Care Team Providers Care Tablet Making Machine Operator Name Role Phone Fela Grajeda MD Primary Care Provider [phone] Encounter Details Date Type Department Care Team ([facility] st Contact Info) Description 11/01/2024 Orders Only [facility] CH[facility] MED & PEDS [address] [place], [place] [phone] Fela Grajeda MD [address] [place] [address] Social History Tobacco Use Types Packs/Day Years [...] documented as of this encounter Care Teams Tablet Making Machine Operator Relationship Specialty Start Date End Date Fela Grajeda MD [address] [place] [address] PCP - General Internal Medicine 07/11/18 documented as of this encounter
--- OUTSIDE RECORDS SUMMARY | 2025-07-08 17:06 | XMS_ITS | Encounter Summary ---
Author Organization [employer] Address [address] [place] [address] [address] [place] [address] Care Team Providers Care Rn Anesthesiology Name Role Phone Fela Grajeda MD Primary Care Provider [phone] Encounter Details Date Type Department Care Team ([facility] st Contact Info) Description 06/21/2025 Orders Only [facility] CH[facility] MED & PEDS [address] [place] [address] Fela Grajeda MD [address] [place] [address] Macrocytosis (Primary Dx) Social History Tobacco Use [...] documented as of this encounter Care Teams Rn Anesthesiology Relationship Specialty Start Date End Date Fela Grajeda MD [address] [place] [address] PCP - General Internal Medicine 07/11/18 documented as of this encounter
--- OUTSIDE RECORDS SUMMARY | 2025-07-08 17:06 | XMS_ITS | Encounter Summary ---
Author Organization [employer] Address [address] [place] [address] Care Team Providers Care Drum Straightener Name Role Phone Fela Grajeda MD Primary Care Provider [phone] Reason for Visit * Reason Comments Med Refill Encounter Details Date Type Department Care Team ([facility] Contact Info) Description 01/09/2024 Refill [facility] CHC MED & PEDS [address] [place] [address] Fela Grajeda MD [address] [place] [address] Seasonal allergies Social History Tobacco Use Types [...] documented as of this encounter Care Teams Drum Straightener Relationship Specialty Start Date End Date Fela Grajeda MD [address] [place] [address] PCP - General Internal Medicine 07/11/18 documented as of this encounter
--- OUTSIDE RECORDS SUMMARY | 2025-07-08 17:06 | XMS_ITS | Clinical Summary ---
Author Organization [facility] Address [address] [place] [address] Care Team Providers Care Poultry Scientist Name Role Phone Unavailable Primary Care Provider Unavailabl e Surgical History Surgery Date Site/Laterality Comments HYSTERECTOMY PROCEDURE: HISTORICAL HYSTERECTOMY Medical History Medical History Date Comments Pure hypercholesterolemia 12/21/2006 DX:Pur e hypercholesterolemia Unspecified asthma(493.90) 12/29/2006 DX:Un specified asthma(493.90) Family History Relation Name Status Comments Aunt NE Father Alive CVA Mother Alive High cholestero l Sister Alive Uncle 1 NE Uncle 2 NE Uncle 3 NE Social History Tobacco Use Types Packs/Day Years [...]
--- OUTSIDE RECORDS SUMMARY | 2025-07-08 17:06 | XMS_ITS | Encounter Summary ---
Author Organization [employer] Address [address] [place] [id number] Care Team Providers Care Victim Advocate Name Role Phone Fela Grajeda MD Primary Care Provider [phone] Reason for Visit * Reason Onset Date Comments Med Refill 03/07/2025 Encounter Details Date Type Department Care Team ([facility] st Contact Info) Description 03/07/2025 Telephone [facility] [address] [place] [address] Fela Grajeda MD [address] [place] [address] Med Refill Social History Tobacco Use Types [...] sent to: [facility] - [place], [place] - [address] [place] [address] St documented in this encounter Plan of Treatment Not on file documented as of this encounter Visit Diagnoses Not on filedocumented in this encounter Additional Health Concerns Assessment Noted Time PHQ-9 Depression Total Score: 7 10/16/19 9:53 AM EDT documented as of this encounter Care Teams Victim Advocate Relationship Specialty Start Date End Date Fela Grajeda MD [address] [place] [id number] PCP - General Internal Medicine 07/11/18 documented as of this encounter
--- OUTSIDE RECORDS SUMMARY | 2025-07-08 17:06 | XMS_ITS | Encounter Summary ---
Author Organization [employer] Address [address] [facility] [address] [place] [address] Care Team Providers Care Oncology Research Rn Name Role Phone Fela Grajeda MD Primary Care Provider [phone] Encounter Details Date Type Department Care Team (Latest Contact Info) Description 06/21/2025 Results Follow-Up [facility] [address] [place], [place] [id number] Sandra Yeager RN CBC auto differential, Comprehensive [...] documented as of this encounter Care Teams Oncology Research Rn Relationship Specialty Start Date End Date Fela Grajeda MD [address] [place] [id number] PCP - General Internal Medicine 07/11/18 documented as of this encounter
== END 2025-07-08 15:34 | disposition home or self-care (01) ==
PROVIDERS: PCP Internal Medicine
DX: M65.341 Trigger finger, right ring finger (principal)
CPT/HCPCS: 20550; 99213

== ENCOUNTER → 2025-07-08 14:48 | Outpatient (BNV) | payer OTHER, SELFPAY | PROVIDERS: Visit Provider Radiology Diagnostic Radiology | DX: M79.641 Pain in right hand (principal) | CPT/HCPCS: 73130 ==

== ENCOUNTER 2025-07-08 16:01 | Outpatient (REF) | payer OTHER, SELFPAY ==
[2025-07-08 19:27] LABS: Folate 6.0 ng/mL (> or = 4.0); Vitamin B12 373 pg/mL (200-900)
== END 2025-07-08 16:02 ==
LOC: HO.CHCLDS 16:01
PROVIDERS: Visit Provider Internal Medicine
DX: D75.89 Other specified diseases of blood and blood-forming organs (principal)
CPT/HCPCS: 36415; 82607; 82746